=== PATIENT | female | born 1970 | race Caucasian/White ===

== ENCOUNTER 2018-02-08 12:24 | Emergency (ER) | payer MEDICAID, OTHER ==
[2014-01-31 23:06] VITALS: BP 100/68
[~2018-02-08] VITALS: Ht 172.7 cm; Wt 81.6 kg
--- NOTE | 2018-02-08 16:29 | PHYS DOC ---
Past Medical History Past Medical History: No Pertinent History Past Surgical History: Other Additional Past Surgical Histo: back surgery Alcohol Use: None Drug Use: Cocaine Adult General Chief Complaint Chief Complaint: BACK PAIN OR INJURY HPI HPI Patient is a 47 year old female who presents with chronic low back pain. Patient states she had a metal ying placed in her spine in 1997. She has had chronic back pain since then for which she takes Mobitz. She was recently incarcerated for 3 months. During her incarceration, she complained of back pain to the [facility] staff and did have a plain film x-ray completed. According to the patient, the x-ray read stated that one of the screws in her hardware had, loose. She presents to the ER today requesting to have this issue addressed. She continues to have chronic back pain but no acute or new symptoms. She takes Mobitz every day and does not need a refill. She is not requesting additional or stronger pain medications. No new injury. She has some numbness and radicular symptoms down the bilateral legs but these also are chronic in nature. No fever or chills. Review of Systems Review of Systems Constitutional: Denies fever or chills Eyes: Denies change in visual acuity HENT: Denies nasal congestion Respiratory: Denies cough or shortness of breath GI: Denies abdominal pain : Denies dysuria Musculoskeletal: chronic back pain Integument: Denies rash Neurologic: Denies headache All other systems were reviewed and found to be within normal limits, except as documented in this note. Allergies Allergies Allergies Coded Allergies Type Severity Reaction Last Updated Verified No Known Drug Allergies 08/17/13 No Physical Exam Physical Exam Constitutional: Well developed, well nourished, no acute distress, non-toxic appearance. [] HENT: Normocephalic, atraumatic, bilateral external ears normal, oropharynx moist, no oral exudates, nose normal. [] Eyes: PERRLA, EOMI, conjunctiva normal, no discharge. [] Neck: Normal range of motion, no tenderness, supple, no stridor. [] Cardiovascular:Heart rate regular rhythm, no murmur [] Lungs & Thorax: Bilateral breath sounds clear to auscultation [] Abdomen: Bowel sounds normal, soft, no tenderness, no masses, no pulsatile masses. [] Skin: Warm, dry, no erythema, no rash. [] Back: No tenderness, no CVA tenderness. [] Extremities: No tenderness, no cyanosis, no clubbing, ROM intact, no edema. [] Neurologic: Alert and oriented X 3, normal motor function, normal sensory function, no focal deficits noted. [] Psychologic: Affect normal, judgement normal, mood normal. [] Current Patient Data Vital Signs Vital Signs Date Time Temp Pulse Resp B/P (MAP) Pulse Ox O2 Delivery O2 Flow Rate FiO2 02/08/18 12:38 98.1 89 16 148/94 (112) 100 Room Air 98.1 EKG EKG [] Radiology/Procedures Radiology/Procedures [] Course & Med Decision Making Course & Med Decision Making Pertinent Labs and Imaging studies reviewed. (See chart for details) He waited briefly in the ER for chronic low back pain. She was under the understanding that we would be able to address her back pain and issue with the hardware in her back in the emergency department. I explained to the patient that we did not have the credentials or staff in the ER or at this hospital 2 address her fixative spinal devices. Patient was not requesting refills of medications. I did assist the patient by finding local physician groups who could potentially help with her problem. She was referred to follow up at the [facility] spine center. She was provided the phone number to call. Patient was satisfied with this plan of care. She did leave the ER with a normal steady gait and in no distress. Dragon Disclaimer Dragon Disclaimer This electronic medical record was generated, in whole or in part, using a voice recognition dictation system. Departure Departure Impression: Primary Impression: Chronic back pain Disposition: 01 HOME, SELF-CARE Condition: GOOD Patient Instructions: Back Pain, Adult Additional Instructions: You were seen in the emergency department today requesting to have the hardware in her back evaluated. This is not a specialty or service that is available at [facility]. It is recommended that he contact the [facility] spine center. The phone number is [phone]. They have locations both downtown [place] and also at the [facility] just down [address]. GUNNAR CLARKE DO Feb 08, 2018 16:29
== END 2018-02-08 13:17 | disposition home or self-care (01) ==
LOC: ER 12:24
DX: G89.29 Other chronic pain (principal); M54.5 Low back pain
CPT/HCPCS: 99281

== ENCOUNTER 2018-11-16 13:33 | Emergency (ER) | payer MEDICAID ==
[~2018-11-16] VITALS: Ht 172.7 cm; Wt 86.2 kg
[2018-11-16 13:49] VITALS: BP 100/62
[2018-11-16] MEDS ORDERED: NYSTATIN 100,000 UNIT/GM TOPICAL CREAM 15GM TUBE. TP STA (13:59)
[2018-11-16] MEDS ORDERED: SULF1TAB24 PO (14:27)
--- NOTE | 2018-11-16 14:28 | PHYS DOC ---
Past Medical History Past Medical History: No Pertinent History (GURJITDIOMEDES MARKS APRN) Past Surgical History: Hysterectomy, Other Additional Past Surgical Histo: back surgery (DIOMEDES PEREIRA APRN) Alcohol Use: None Drug Use: Cocaine (RANDALLDIOMEDES APRN) Adult General Chief Complaint Chief Complaint: SKIN RASH/ABSCESS HPI HPI Patient is a 47 year old female who presents to the ED today with multiple complaints. Patient is complaining of a rash underneath her breast bilaterally for 3 weeks. She is also complaining of a stye on the left upper eyelid, and another abscess on the tip of her nose. Denies any fever. Denies any history of diabetes. (RANDALLDIOMEDES [place]) Review of Systems Review of Systems Constitutional: Denies fever or chills [] Eyes: Denies change in visual acuity, redness, or eye pain [] HENT: Denies nasal congestion or sore throat [] Respiratory: Denies cough or shortness of breath [] Cardiovascular: No additional information not addressed in HPI [] GI: Denies abdominal pain, nausea, vomiting, bloody stools or diarrhea [] : Denies dysuria or hematuria [] Musculoskeletal: Denies back pain or joint pain [] Integument: Reports rash underneath her breast, stye in the left upper eyelid, abscess on the nose. Neurologic: Denies headache, focal weakness or sensory changes [] All other systems were reviewed and found to be within normal limits, except as documented in this note. (RANDALLDIOMEDES APRN) Current Medications Current Medications Current Medications Medications (Trade) Dose Ordered Sig/Chandra Start Time Stop Time Status Last Admin Dose Admin Diphtheria/ Tetanus/Acell Pertussis (Boostrix) 0.5 ml ONCE ONCE 11/16/18 14:30 11/16/18 14:31 DC 11/16/18 14:14 0.5 ML Erythromycin (Romycin) 0.25 inch 1X ONCE 11/16/18 14:30 11/16/18 14:31 DC 11/16/18 14:14 0.25 INCH Nystatin (Mycostatin) 1 cole 1X STAT 11/16/18 13:59 11/16/18 14:03 DC 11/16/18 14:14 1 COLE Trimethoprim/ Sulfamethoxazole (Bactrim Ds) 1 tab 1X ONCE 11/16/18 14:30 11/16/18 14:31 DC 11/16/18 14:14 1 TAB (MICAH CRANE DO) Allergies Allergies Allergies Coded Allergies Type Severity Reaction Last Updated Verified No Known Drug Allergies 08/17/13 No (MICAH CRANE DO) Physical Exam Physical Exam Constitutional: Well developed, well nourished, no acute distress, non-toxic appearance. [] HENT: Normocephalic, atraumatic, bilateral external ears normal, oropharynx moist, no oral exudates, nose normal. [] Eyes: PERRLA, EOMI, conjunctiva normal, no discharge. [] Neck: Normal range of motion, no tenderness, supple, no stridor. [] Cardiovascular:Heart rate regular rhythm, no murmur [] Lungs & Thorax: Bilateral breath sounds clear to auscultation [] Abdomen: Bowel sounds normal, soft, no tenderness, no masses, no pulsatile masses. [] Skin: Warm, dry, Left upper eyelid inner canthus with a stye that was drained by me. There is an abscess on the tip of the nose that appears to open up and drained. She has makeup on since had to do a full exam. There is moderate erythema does rash underneath her breasts bilaterally consistent with an infected yeast infection. Back: No tenderness, no CVA tenderness. [] Extremities: No tenderness, no cyanosis, no clubbing, ROM intact, no edema. [] Neurologic: Alert and oriented X 3, normal motor function, normal sensory func tion, no focal deficits noted. [] Psychologic: Affect normal, judgement normal, mood normal. [] (DIOMEDES PEREIRA APRN) Current Patient Data Vital Signs Vital Signs Date Time Temp Pulse Resp B/P (MAP) Pulse Ox O2 Delivery O2 Flow Rate FiO2 11/16/18 13:49 98.1 85 16 100/62 (75) 97 Room Air 98.1 (MICAH CRANE DO) EKG EKG [] (DIOMEDES PEREIRA APRN) Radiology/Procedures Radiology/Procedures [] (DIOMEDES PEREIRA APRN) Course & Med Decision Making Course & Med Decision Making Pertinent Labs and Imaging studies reviewed. (See chart for details) This is a 47-year-old female patient who presents to the ED today with an infected cutaneous candidiasis underneath her breast, she also has an abscess on the tip of the nose that has opened up and drained. She also has a stye on the left upper eyelid. The sty was drained by me in the ED. Tetanus was updated. She'll be discharged on Bactrim, nystatin cream, and erythromycin ointment which was provided in the ED. Follow-up with PCP in 1-2 weeks. (DIOMEDES PEREIRA APRN) Dragon Disclaimer Dragon Disclaimer This electronic medical record was generated, in whole or in part, using a voice recognition dictation system. (DIOMEDES PEREIRA APRN) Departure Departure Impression: Primary Impression: Sty, external Additional Impressions: Cutaneous candidiasis Nasal abscess Skin infection Disposition: HOME, SELF-CARE Condition: STABLE Referrals: NO PCP (PCP) Follow-up with the primary care doctor in one week Patient Instructions: Cutaneous Candidiasis, Sty Additional Instructions: You were evaluated in the emergency room and noted to have a stye on the left upper eyelid you were also noted to have an abscess on the tip of the nose as well as yeast infection underneath the breast. Use the prescribed medications as ordered. Avoid using makeup until the infection has cleared. Apply warm compresses to the left upper eyelid 3 times a day. Use nystatin under the breast three times a day. 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 I was available for consultation as needed during the patient's visit in the emergency department. I agree with the clinical impression, plan, and disposition. (MICAH CRANE DO) Problem Qualifiers Primary Impression: Sty, external Laterality: left Eyelid: upper Qualified Codes: H00.014 - Hordeolum externum left upper eyelid DIOMEDES PEREIRA APRN Nov 16, 2018 14:28 MICAH CRANE DO Nov 16, 2018 17:26
[2018-11-16] MEDS ORDERED: SMZ/TMP 800/160MG TABLET. PO ONE (14:30)
[2018-11-16] MEDS ORDERED: ERYTHROMYCIN 0.5% OPHTH OINTMENT 1GM TUBE. OS ONE (14:30)
[2018-11-16] MEDS ORDERED: DIPHTH,PERTUSS(ACELL),TET TOX 0.5 ML DISP.SYRIN. VAX IM ONE (14:30)
== END 2018-11-16 14:39 | disposition home or self-care (01) ==
LOC: ER 13:33
DX: H00.014 Hordeolum externum left upper eyelid (principal); J32.9 Chronic sinusitis, unspecified; B37.2 Candidiasis of skin and nail; Z90.710 Acquired absence of both cervix and uterus
CPT/HCPCS: 90471; 90715; 99284

== ENCOUNTER 2020-09-25 08:28 | Inpatient (IN) | payer MEDICAID ==
[~2020-09-25] VITALS: Ht 172.7 cm; Wt 108.6 kg
[2020-09-25] VITALS (11 sets, daily range): BP systolic 143–182; BP diastolic 76–99
[~2020-09-25 08:28] MED LIST: SULF1TAB24 PO
[2020-09-25] MEDS ORDERED: IPRATRPIUM/ALBUTEROL 0.5/2.5MG 3 ML NEBU. NEB ONE ×3 (09:00→16:15)
--- NOTE | 2020-09-25 09:20 | ED.ADGEN ---
Past Medical History Past Medical History: Depression Past Surgical History: Hysterectomy, Other Additional Past Surgical Histo: back surgery Smoking Status: Current Every Day Smoker Additional Information: STOPPED 2 DAYS AGO Alcohol Use: None Drug Use: Cocaine General Adult EDM: Chief Complaint: MULTIPLE COMPLAINTS HPI: HPI: Patient is a 49 year old female coming in for cough, shortness of breath, substernal pressure-like chest pain for 2 days. Patient states she quit smoking 2 days ago when symptoms were worsening. Denies any GI complaints. Denies any fevers. Has not had her Covid vaccines. Review of Systems: Review of Systems: All other systems within normal limits except for as noted in the HPI Current Medications: Current Medications Medications (Trade) Dose Ordered Sig/Chandra Start Time Stop Time Status Last Admin Dose Admin Albuterol/ Ipratropium (Duoneb) 3 ml 1X ONCE 09/25/20 09:00 09/25/20 09:03 DC 09/25/20 09:24 3 ML Furosemide (Lasix) 40 mg 1X ONCE 09/25/20 11:00 09/25/20 11:01 Info (CONTRAST GIVEN -- Rx MONITORING) 1 each PRN DAILY PRN 09/25/20 10:15 09/27/20 10:14 Iohexol (Omnipaque 350 Mg/ml) 100 ml 1X ONCE 09/25/20 10:15 09/25/20 10:16 DC Allergies: Allergies: Allergies Coded Allergies Type Severity Reaction Last Updated Verified No Known Drug Allergies 08/17/13 No Physical Exam: PE: Constitutional: Well developed, well nourished, no acute distress, non-toxic appearance. [] HENT: Normocephalic, atraumatic, bilateral external ears normal, nose normal. [] Eyes: PERRLA, conjunctiva normal, no discharge. [] Neck: No rigidity, supple, no stridor. [] Cardiovascular: Regular rate and rhythm, brisk cap refill [] Lungs & Thorax: Non labored symmetric respirations, no tachypnea or respiratory distress. Bilateral rhonchi and expiratory wheezes [] Abdomen: Soft, nondistended. Skin: Warm, dry, no erythema, no rash. [] Back: Unremarkable Extremities: No deformities, range of motion grossly intact, no lower extremity edema [] Neurologic: Alert and oriented X 3, no focal deficits noted. [] Psychologic: Affect normal, judgement normal, mood normal. [] Current Patient Data: Labs: Laboratory Tests Test 09/25/20 08:40 09/25/20 09:00 09/25/20 09:20 Urine Collection Type U cath Urine Color Yellow Urine Clarity Clear Urine pH 6.5 (<5.0-8.0) Urine Specific [place] 1.020 (1.000-1.030) Urine Protein Negative mg/dL (NEG-TRACE) Urine Glucose (UA) Negative mg/dL (NEG) Urine Ketones (Stick) Negative mg/dL (NEG) Urine Blood Small (NEG) Urine Nitrite Positive (NEG) Urine Bilirubin Negative (NEG) Urine Urobilinogen Dipstick 0.2 mg/dL (0.2 mg/dL) Urine Leukocyte Esterase Negative (NEG) Urine RBC 3-5 /HPF (0-2) Urine WBC 1-4 /HPF (0-4) Urine Bacteria Many /HPF (0-FEW) Sodium Level 141 mmol/L (136-145) Potassium Level 3.6 mmol/L (3.5-5.1) Chloride Level 106 mmol/L (98-107) Carbon Dioxide Level 25 mmol/L (21-32) Anion Gap 10 (6-14) Blood Urea Nitrogen 10 mg/dL (7-20) Creatinine 0.9 mg/dL (0.6-1.0) Estimated GFR (Cockcroft-Gault) 66.8 BUN/Creatinine Ratio 11 (6-20) Glucose Level 155 mg/dL (70-99) H Calcium Level 8.3 mg/dL (8.5-10.1) L Total Bilirubin 0.6 mg/dL (0.2-1.0) Aspartate Amino Transferase (AST) 19 U/L (15-37) Alanine Aminotransferase (ALT) 40 U/L (14-59) Alkaline Phosphatase 108 U/L (46-116) Troponin I Quantitative 0.159 ng/mL (0.000-0.055) CO-Fvu-B-Type Natriuretic Peptide 34747 pg/mL (0-124) H Total Protein 6.3 g/dL (6.4-8.2) L Albumin 3.1 g/dL (3.4-5.0) L Albumin/Globulin Ratio 1.0 (1.0-1.7) SARS-CoV-2 Antigen (Rapid) Negative (NEGATIVE) White Blood Count 7.4 x10^3/uL (4.0-11.0) Red Blood Count 4.03 x10^6/uL (3.50-5.40) Hemoglobin 12.2 g/dL (12.0-15.5) Hematocrit 36.9 % (36.0-47.0) Mean Corpuscular Volume 92 fL (79-100) Mean Corpuscular Hemoglobin 30 pg (25-35) Mean Corpuscular Hemoglobin Concent 33 g/dL (31-37) Red Cell Distribution Width 13.9 % (11.5-14.5) Platelet Count 246 x10^3/uL (140-400) Neutrophils (%) (Auto) 75 % (31-73) H Lymphocytes (%) (Auto) 19 % (24-48) L Monocytes (%) (Auto) 5 % (0-9) Eosinophils (%) (Auto) 1 % (0-3) Basophils (%) (Auto) 1 % (0-3) Neutrophils # (Auto) 5.5 x10^3/uL (1.8-7.7) Lymphocytes # (Auto) 1.4 x10^3/uL (1.0-4.8) Monocytes # (Auto) 0.4 x10^3/uL (0.0-1.1) Eosinophils # (Auto) 0.1 x10^3/uL (0.0-0.7) Basophils # (Auto) 0.0 x10^3/uL (0.0-0.2) Lactic Acid Level 1.8 mmol/L (0.4-2.0) Laboratory Tests 09/25/20 09:20 Laboratory Tests 09/25/20 08:40 Vital Signs: Vital Signs Date Time Temp Pulse Resp B/P (MAP) Pulse Ox O2 Delivery O2 Flow Rate FiO2 09/25/20 09:24 97 2.5 09/25/20 08:44 97.4 97 24 150/98 (115) Room Air 97.4 EKG: EKG: Sinus rhythm, heart rate 90 bpm, left bundle branch block, no ST elevation or depression. Heart Score: C/O Chest Pain: Yes HEART Score for Chest Pain: HEART Score for Chest Pain Response (Comments) Value History Moderately Suspicious 1 ECG Nonspecific Repolarizatio 1 Age >45 - < 65 1 Risk Factors 1 or 2 Risk Factors 1 Troponin >3 x Normal Limit 2 Total 6 Risk Factors: Risk Factors: DM, Current or recent (<one month) smoker, HTN, HLP, family history of CAD, obesity. Risk Scores: Score 0 - 3: 2.5% MACE over next 6 weeks - Discharge Home Score 4 - 6: 20.3% MACE over next 6 weeks - Admit for Clinical Observation Score 7 - 10: 72.7% MACE over next 6 weeks - Early Invasive Strategies Radiology/Procedures: Radiology/Procedures: [facility] [address] [place] [address] IMAGING REPORT Signed PATIENT: VANESSA CAR ACCOUNT: [id number] : 1970 LOCATION: ER AGE: 49 SEX: F EXAM STATUS: REG ER ORD. PHYSICIAN: FIOR HAY MD REASON: dyspnea, PE PROCEDURE: CT ANGIOGRAPHY CHEST CT angiography of the chest 09/25/2020 10:10 AM Indication: Dyspnea. PE. Technique: Multiple contiguous axial images were obtained through the chest after administration of intravenous iodinated contrast. Coronal, sagittal, and 3-D MIP reformations were created. Comparison: Chest radiograph, earlier today Findings: Exam is limited by significant motion artifact from breathing. No large pulmonary embolus is seen within the main or proximal lobar arteries. Exam is nondiagnostic for evaluation of distal segmental and subsegmental arteries. Heart is mildly enlarged. No pericardial effusion is identified. Mild mediastinal adenopathy appears to be present. No pneumothorax is identified. There are small bilateral pleural effusions. There is probable intralobular septal thickening likely interstitial edema throughout the bilateral lungs. Mild bibasilar atelectasis is seen. Impression minimal infiltrate in the apical right upper lobe. Limited evaluation of the upper abdomen demonstrates no acute abnormality. No acute osseous changes are seen. IMPRESSION: 1.Limited study without evidence of name large/central pulmonary embolism 2. Probable interstitial pulmonary edema with small bilateral pleural effusions 3. Cardiomegaly CT DOSING PQRS STATEMENT: One or more of the following individualized dose reduction techniques were utilized for this examination: 1. Automated exposure control 2. Adjustment of the mA and/or kV according to patient size 3. Use of iterative reconstruction technique Electronically signed by: Zeeshan Collins MD (09/25/2020 10:37 AM) [id number] DICTATED and SIGNED BY: ZEESHAN COLLINS MD DATE: 09/25/20 [id number] [] Course & Med Decision Making: Course & Med Decision Making Pertinent Labs and Imaging studies reviewed. (See chart for details) [] Cardiomegaly still likely underlying CHF not new. Initial rapid Covid negative. Patient admitted for new diagnosis of CHF and elevated troponin. Dragon Disclaimer: [employer] Disclaimer: This electronic medical record was generated, in whole or in part, using a voice recognition dictation system. Departure Departure Impression: Primary Impression: CHF (congestive heart failure) Additional Impressions: Person under investigation for COVID-19 Elevated troponin Disposition: ADMITTED INPATIENT Condition: STABLE Referrals: NO PCP (PCP) Problem Qualifiers FIOR HAY MD Sep 25, 2020 09:20
--- NOTE | 2020-09-25 09:22 | RAD ---
Single AP view of the chest. Comparison: None. Indication: Cough Findings: The heart is enlarged. There is no pneumothorax or effusion. Mild pulmonary vascular congestion. Impression: 1. Cardiomegaly and mild pulmonary vascular congestion. Electronically signed by: Martin Garcia MD (09/25/2020 9:20 AM) [id number]
[2020-09-25 09:46] LABS: BILIRUBIN,URINE NEGATIVE (NEG); CLARITY,URINE CLEAR; COLOR,URINE YELLOW; NITRITE,URINE POSITIVE (NEG); PH,URINE 6.5 (<5.0-8.0); PROTEIN,URINE NEGATIVE (NEG-TRACE); UROBILINOGEN,URINE 0.2 mg/dL (0.2 mg/dL)
[2020-09-25 09:50] LABS: BASO % 1 % (0-3); EOS # 0.1 x10^3/uL (0.0-0.7); EOS % 1 % (0-3); HEMATOCRIT 36.9 % (36.0-47.0); HEMOGLOBIN 12.2 g/dL (12.0-15.5); LYMPH # 1.4 x10^3/uL (1.0-4.8); LYMPH % 19 % (24-48); MEAN CORPUSCULAR HEMOGLOBIN 30 pg (25-35); MEAN CORPUSCULAR HGB CONC 33 g/dL (31-37); MEAN CORPUSCULAR VOLUME 92 fL (79-100); MONO # 0.4 x10^3/uL (0.0-1.1); MONO % 5 % (0-9); NEUT # 5.5 x10^3/uL (1.8-7.7); NEUT % 75 % (31-73); PLATELET COUNT 246 x10^3/uL (140-400); RED BLOOD COUNT 4.03 x10^6/uL (3.50-5.40); RED CELL DISTRIBUTION WIDTH 13.9 % (11.5-14.5); WHITE BLOOD COUNT 7.4 x10^3/uL (4.0-11.0)
[2020-09-25 09:51] LABS: CALCIUM 8.3 mg/dL (8.5-10.1); CREATININE 0.9 mg/dL (0.6-1.0); GFR 66.8; POTASSIUM 3.6 mmol/L (3.5-5.1)
[2020-09-25 09:55] LABS: BACTERIA,URINE MANY /HPF (0-FEW)
[2020-09-25 09:58] LABS: ALBUMIN 3.1 g/dL (3.4-5.0); TOTAL BILIRUBIN 0.6 mg/dL (0.2-1.0); TOTAL PROTEIN 6.3 g/dL (6.4-8.2)
[2020-09-25] MEDS ORDERED: IOHEXOL 350 MG/ML 100 ML VIAL. IV ONE (10:15)
[2020-09-25] MEDS ORDERED: CONTRAST GIVEN. MC PRN (10:15)
--- NOTE | 2020-09-25 10:40 | RAD ---
CT angiography of the chest 09/25/2020 10:10 AM Indication: Dyspnea. PE. Technique: Multiple contiguous axial images were obtained through the chest after administration of i ntravenous iodinated contrast. Coronal, sagittal, and 3-D MIP reformations were created. Comparison: Chest radiograph, earlier today Findings: Exam is limited by significant motion artifact from breathing. No large pulmonary embolus is seen wit hin the main or proximal lobar arteries. Exam is nondiagnostic for evaluation of distal segmental and subsegmental arteries. Heart is mildly enlarged. No pericardial effusion is identified. Mild mediast inal adenopathy appears to be present. No pneumothorax is identified. There are small bilateral pleur al effusions. There is probable intralobular septal thickening likely interstitial edema throughout t he bilateral lungs. Mild bibasilar atelectasis is seen. Impression minimal infiltrate in the apical r ight upper lobe. Limited evaluation of the upper abdomen demonstrates no acute abnormality. No acute osseous changes are seen. IMPRESSION: 1.Limited study without evidence of name large/central pulmonary embolism 2. Probable interstitial pulmonary edema with small bilateral pleural effusions 3. Cardiomegaly CT DOSING PQRS STATEMENT: One or more of the following individualized dose reduction techniques were utilized for this examinat ion: 1. Automated exposure control 2. Adjustment of the mA and/or kV according to patient size 3. Use of iterative reconstruction technique Electronically signed by: Zeeshan Moran MD (09/25/2020 10:37 AM) [id number]
[2020-09-25] MEDS ORDERED: ASPIRIN CHEWABLE 81 MG TABLET. PO ONE (10:45)
[2020-09-25] MEDS ORDERED: fentaNYL PF VIAL 100 MCG/2 ML VIAL IV PRN (10:45)
[2020-09-25] MEDS ORDERED: ACETAMINOPHEN 325 MG TABLET. PO PRN (10:45)
[2020-09-25] MEDS ORDERED: NITROGLYCERIN SUBLINGUAL 0.4 MG BOTTLE OF 25. SL PRN (10:45)
[2020-09-25] MEDS ORDERED: ONDANSETRON PF 4 MG/2 ML VIAL. IV PRN (10:45)
[2020-09-25] MEDS ORDERED: FUROSEMIDE 40 MG/4 ML VIAL. IVP ONE (11:00)
--- NOTE | 2020-09-25 12:35 | PDOC2 ---
SOLO THORNE LIQUEFACTION AND REGASIFICATION HELPER 09/25/20 1235: CARDIAC CONSULT DATE OF CONSULT Date of Consult DATE: 09/25/20 TIME: 12:26 REASON FOR CONSULT Reason for Consult: CHF, chest pain REFERRING PHYSICIAN Referring Physician: Issac SOURCE Source: Chart review, Patient HISTORY OF PRESENT ILLNESS HISTORY OF PRESENT ILLNESS This is a pleasant 49 yo female admitted for complains of chest pain and SOA. Reports that her SOA got worse this morning and had mid chest tightness. No nausea or vomiting. No recent falls or injury. Reports that in the last month she has been having ESPITIA and exertional chest tightness to a point that she has to stop doing what she is doing before progressing. Denies any past CAD, VTE, or arrhythmia.Reports no palpitations. No recent infection, no fever or chills. Denies any jaw tightness or arm heaviness. No leg swelling. Positive for orthopnea and PND. She has been wheezing. She smokes tobacco but denies any recreational drug use. She has not had any cardiac workup in the past. She only takes cymbalta. PAST MEDICAL HISTORY Cardiovascular: No pertinent hx Pulmonary: Other (No pertinent history) CENTRAL NERVOUS SYSTEM: Other (No pertinent history) GI: No pertinent hx Heme/Onc: No pertinent hx Hepatobiliary: No pertinent hx Psych: Anxiety, Depression Musculoskeletal: low back pain, Osteoarthritis, Other (chornic back pain) Rheumatologic: No pertinent hx Infectious disease: No pertinent hx ENT: No pertinent hx PAST SURGICAL HISTORY Past Surgical History: Hysterectomy, Other (lumbar laminectomy) FAMILY HISTORY Family History: Coronary Artery Disease (mother had CABG in her 60s), Diabetes (mother) SOCIAL HISTORY Smoke: 1 pack per day ALCOHOL: none Drugs: None Lives: with Family CURRENT MEDICATIONS CURRENT MEDICATIONS Current Medications Medications (Trade) Dose Ordered Sig/Chandra Route PRN Reason Start Time Stop Time Status Last Admin Dose Admin Albuterol/ Ipratropium (Duoneb) 3 ml 1X ONCE NEB 09/25/20 09:00 09/25/20 09:03 DC 09/25/20 09:24 Furosemide (Lasix) 40 mg 1X ONCE IVP 09/25/20 11:00 09/25/20 11:01 DC 09/25/20 10:53 Aspirin (Aspirin Chewable) 324 mg 1X ONCE PO 09/25/20 10:45 09/25/20 10:46 DC 09/25/20 10:52 ALLERGIES ALLERGIES: Coded Allergies: No Known Drug Allergies (Unverified , 08/17/13) ROS Review of System 14 point ROS evaluated with pertinent positives noted per HPI PHYSICAL EXAM General: Alert, Oriented X3, Cooperative, No acute distress HEENT: Atraumatic, Mucous membr. moist/pink Lungs: Normal air movement, Other (upper wheeze) Abdomen: Soft, No tenderness Extremities: No cyanosis, No edema Skin: No breakdown, No significant lesion Neuro: Normal speech, Sensation intact Psych/Mental Status: Mental status NL, Mood NL MUSCULOSKELETAL: Osteoarthritic changes both hands VITALS/I&O VITALS/I&O: Vital Signs Date Time Temp Pulse Resp B/P (MAP) Pulse Ox O2 Delivery O2 Flow Rate FiO2 09/25/20 10:55 95 142/90 (107) 95 Nasal Cannula 2.0 09/25/20 08:44 97.4 24 97.4 LABS Lab: Laboratory Tests Test 09/25/20 08:40 09/25/20 09:00 09/25/20 09:20 Urine Collection Type U cath Urine Color Yellow Urine Clarity Clear Urine pH 6.5 (<5.0-8.0) Urine Specific [place] 1.020 (1.000-1.030) Urine Protein Negative mg/dL (NEG-TRACE) Urine Glucose (UA) Negative mg/dL (NEG) Urine Ketones (Stick) Negative mg/dL (NEG) Urine Blood Small (NEG) Urine Nitrite Positive (NEG) Urine Bilirubin Negative (NEG) Urine Urobilinogen Dipstick 0.2 mg/dL (0.2 mg/dL) Urine Leukocyte Esterase Negative (NEG) Urine RBC 3-5 /HPF (0-2) Urine WBC 1-4 /HPF (0-4) Urine Bacteria Many /HPF (0-FEW) Sodium Level 141 mmol/L (136-145) Potassium Level 3.6 mmol/L (3.5-5.1) Chloride Level 106 mmol/L (98-107) Carbon Dioxide Level 25 mmol/L (21-32) Anion Gap 10 (6-14) Blood Urea Nitrogen 10 mg/dL (7-20) Creatinine 0.9 mg/dL (0.6-1.0) Estimated GFR (Cockcroft-Gault) 66.8 BUN/Creatinine Ratio 11 (6-20) Glucose Level 155 mg/dL (70-99) H Calcium Level 8.3 mg/dL (8.5-10.1) L Total Bilirubin 0.6 mg/dL (0.2-1.0) Aspartate Amino Transferase (AST) 19 U/L (15-37) Alanine Aminotransferase (ALT) 40 U/L (14-59) Alkaline Phosphatase 108 U/L (46-116) Troponin I Quantitative 0.159 ng/mL (0.000-0.055) QK-Qln-N-Type Natriuretic Peptide 92455 pg/mL (0-124) H Total Protein 6.3 g/dL (6.4-8.2) L Albumin 3.1 g/dL (3.4-5.0) L Albumin/Globulin Ratio 1.0 (1.0-1.7) SARS-CoV-2 Antigen (Rapid) Negative (NEGATIVE) White Blood Count 7.4 x10^3/uL (4.0-11.0) Red Blood Count 4.03 x10^6/uL (3.50-5.40) Hemoglobin 12.2 g/dL (12.0-15.5) Hematocrit 36.9 % (36.0-47.0) Mean Corpuscular Volume 92 fL (79-100) Mean Corpuscular Hemoglobin 30 pg (25-35) Mean Corpuscular Hemoglobin Concent 33 g/dL (31-37) Red Cell Distribution Width 13.9 % (11.5-14.5) Platelet Count 246 x10^3/uL (140-400) Neutrophils (%) (Auto) 75 % (31-73) H Lymphocytes (%) (Auto) 19 % (24-48) L Monocytes (%) (Auto) 5 % (0-9) Eosinophils (%) (Auto) 1 % (0-3) Basophils (%) (Auto) 1 % (0-3) Neutrophils # (Auto) 5.5 x10^3/uL (1.8-7.7) Lymphocytes # (Auto) 1.4 x10^3/uL (1.0-4.8) Monocytes # (Auto) 0.4 x10^3/uL (0.0-1.1) Eosinophils # (Auto) 0.1 x10^3/uL (0.0-0.7) Basophils # (Auto) 0.0 x10^3/uL (0.0-0.2) Lactic Acid Level 1.8 mmol/L (0.4-2.0) Laboratory Tests 09/25/20 09:20 Laboratory Tests 09/25/20 08:40 ASSESSMENT/PLAN ASSESSMENT/PLAN 1. NSTEMI/ACS: EKG with noted LBBB no priors for comparison 2. Acute CHF with possible diastolic dysfunction 3. HTN: labile 4. Suspecting COPD with Tobaccoism 5. Obesity 6. UTI 7. Metabolic syndrome Recommendations 1. ASA. NTG. hydralazine IV PRN 2. LHC with possible PCI, risks and benefits discussed and agreeable to proceed 3. Smoking cessation 4. TTE, TSH, FLP, A1C 5. Lasxi given in ED. X1 solumedrol ALEXSANDRA BURGESS MD 09/25/20 1807: CARDIAC CONSULT ASSESSMENT/PLAN ASSESSMENT/PLAN The patient was seen and interviewed as well as examined at the bedside. The chart was reviewed. The case was discussed. Agree with the plan of care. SOLO THORNE APRN Sep 25, 2020 12:35 ALEXSANDRA BURGESS MD Sep 25, 2020 18:07
--- NOTE | 2020-09-25 13:01 | HP ---
ADMIT DATE: 09/25/2020 CHIEF COMPLAINT: Cough, shortness of breath. HISTORY OF PRESENT ILLNESS: The patient is a pleasant 49-year-old female who continues to smoke, although she states she quit smoking a couple days ago. She states she has only smoked a pack a day since she was 16, but she seems to have severe wheezing, respiratory failure. I suspect she has COPD, perhaps undiagnosed. While in the ER, we also noticed that she has cardiomegaly on chest x-ray and her BNP level is also high at 15,452. Troponin level 0.159. Discussed the case with ER physician. We are going to admit the patient and consult Pulmonary and Cardiology. PAST MEDICAL HISTORY: Probable undiagnosed COPD, tobacco abuse, depression, hypertension, hysterectomy, back surgery. ALLERGIES: None. FAMILY HISTORY: Diabetes. SOCIAL HISTORY: She smokes daily since she was 16. Does not drink or take drugs. She is trying to quit smoking, states she has not had any for a couple days. MEDICATIONS: Reviewed, please refer to the MRAD. REVIEW OF SYSTEMS: GENERAL: No history of weight change, weakness or fevers. SKIN: No bruising, hair changes or rashes. EYES: No blurred, double or loss of vision. NOSE AND THROAT: No history of nosebleeds, hoarseness or sore throat. HEART: No history of palpitations, chest pain or shortness of breath on exertion. PULMONARY: She complains of shortness of breath and cough. GASTROINTESTINAL: Denies changes in appetite, nausea, vomiting, diarrhea or constipation. GENITOURINARY: No history of frequency, urgency, hesitancy or nocturia. NEUROLOGIC: Denies history of numbness, tingling, tremor or weakness. PSYCHIATRIC: No history of panic, anxiety or depression. ENDOCRINE: No history of heat or cold intolerance, polyuria or polydipsia. EXTREMITIES: Denies muscle weakness, joint pain, pain on walking or stiffness. PHYSICAL EXAMINATION: VITALS: Within normal limits and are stable. GENERAL: No apparent distress. Alert and oriented. HEENT: Normal cephalic atraumatic, external auditory canals are patent EYES: Extraocular muscles are intact, pupils are equally round and reactive to light and accommodation MUSCULOSKELETAL: Well developed, well nourished, good range of motion ENDOCRINE: No thyromegaly was palpated LYMPHATICS: No cervical chain or axillary nodes were noted HEMATOPOIETIC: No bruising NECK: Supple, no JVD, no thyromegaly was noted. PULMONARY: She has diffuse wheezing almost audible at the bedside, even. HEART: RRR, S1, S2 present. Peripheral pulses intact, no obvious murmurs were noted. ABDOMEN: Soft, nontender. Positive bowel sounds no organomegaly, normal bowel sounds. EXTREMITIES: Without any cyanosis, clubbing, or edema. Pedal pulses intact, Homans sign is negative. NEUROLOGIC: Normal speech, normal tone. A and O x 3, moves all extremities, no obvious focal deficits. PSYCHIATRIC: Normal affect, normal mood. Stable. SKIN: No ulcerations or rashes, good skin turgor, no jaundice. VASCULAR: Good capillary refill, neurovascular bundle appears to be intact. LABORATORY DATA: Electrolytes are normal. Troponin is high at 0.159. BNP is high at 15,452. Urinalysis is negative. COVID testing is negative. Chest x-ray, cardiomegaly and pulmonary vascular congestion. ASSESSMENT AND PLAN: Multifactorial respiratory failure with acute on chronic systolic and diastolic heart failure and chronic obstructive pulmonary disease. The patient has been admitted. We will consult Pulmonary and Cardiology. DuoNebs, O2 per nasal cannula, empiric IV antibiotics, IV steroids. Serial enzymes, serial EKGs. P.r.n. fentanyl, p.r.n. Zofran. Trend labs. Cardiac monitoring. IV Lasix. Long-term prognosis guarded. CC time [address]: Julieth TID: [id number]
[2020-09-25 13:30] LABS: CHOLESTEROL/HDL RATIO 3.8
[2020-09-25] MEDS ORDERED: methylPREDNISolone SOD SUCC PF 125 MG/2 ML VIAL. IV ONE (13:30)
[2020-09-25] MEDS ORDERED: NITROGLYCERIN OINT 1 GM PACKET. TP ONE ×2 (13:30)
--- NOTE | 2020-09-25 14:06 | EKG ---
[facility] [address] [place] [address] Test Date: 2020-09-25 Test Time: 08:35:50 Pat Name: VANESSA CAR Department: Room: 254 1 Gender: F Movie Shot Cameraman: : 1970 Requested By: FIOR HAY Order Number: [id number] Reading MD: Rodger Handley MD Measurements Intervals [place] Rate: 99 P: 49 IL: 180 QRS: 30 QRSD: 146 T: 156 QT: 396 QTc: 514 Interpretive Statements SINUS RHYTHM LBBB Electronically Signed On 09-25-2020 18:05:55 CDT by Rodger Handley MD
[2020-09-25] MEDS ORDERED: DULO60CA6 PO (15:04)
[2020-09-25] MEDS ORDERED: IODIXANOL 320 MG/ML 100 ML VIAL. ONE (15:28)
[2020-09-25] MEDS ORDERED: LIDOCAINE 1% PF 2 ML VIAL. ONE (15:28)
[2020-09-25] MEDS ORDERED: MIDAZOLAM HCL/PF 2 MG/2 ML VIAL. ONE (15:31)
[2020-09-25] MEDS ORDERED: HEPARIN for IV BOLUS 10,000 UNIT/10 ML VIAL. ONE (15:31)
[2020-09-25] MEDS ORDERED: VERAPAMIL 5 MG/2 ML VIAL. ONE (15:31)
[2020-09-25] MEDS ORDERED: fentaNYL PF VIAL 100 MCG/2 ML VIAL ONE (15:31)
[2020-09-25] MEDS ORDERED: NITROGLYCERIN 200 MCG/2 ML SYRINGE FOR CATH/VASC LAB. ONE (15:31)
--- NOTE | 2020-09-25 15:45 | NUR ---
Pt to roofing laborer for procedure. Pt very tachypenic and wheezing, RT paged for duoneb treatment. JOSE RN
[2020-09-25] MEDS ORDERED: FUROSEMIDE 100 MG/10 ML VIAL. ONE (16:08)
[2020-09-25] MEDS ORDERED: HEPARIN for IV BOLUS 10,000 UNIT/10 ML VIAL. IART ONE (16:15)
[2020-09-25] MEDS ORDERED: NITROGLYCERIN 200 MCG/2 ML SYRINGE FOR CATH/VASC LAB. IART ONE (16:15)
[2020-09-25] MEDS ORDERED: VERAPAMIL 5 MG/2 ML VIAL. IART ONE (16:15)
[2020-09-25] MEDS ORDERED: FUROSEMIDE 100 MG/10 ML VIAL. IVP ONE (16:15)
[2020-09-25] MEDS ORDERED: fentaNYL PF VIAL 100 MCG/2 ML VIAL IV ONE (16:15)
[2020-09-25] MEDS ORDERED: IODIXANOL 320 MG/ML 100 ML VIAL. IART ONE (16:15)
[2020-09-25] MEDS ORDERED: LIDOCAINE 1% PF 2 ML VIAL. INJ ONE (16:15)
[2020-09-25] MEDS ORDERED: MIDAZOLAM HCL/PF 2 MG/2 ML VIAL. IV ONE (16:15)
--- NOTE | 2020-09-25 17:55 | CARD ---
MR#: [id number] Date of Study: 09/25/2020 Ordering Physician: SOLO THORNE, Referring Physician: SOLO THORNE, Tech: RT [place](R) APPROVED REPORT Technologist: Triny Tim RT(R) Nurse: Geri Ventura RN Procedure(s) performed: MODERATE SEDATION TIME: 32 MINUTES FLUORO TIME: 7.5 MIN DOSE: 103.3 GYCM2 CONTRAST: 100CC VISI LHC, Coronary angiography [facility] Clinical Frailty Scale [facility] Clinical Frailty Scale: Moderately Frail Heart Failure Heart Failure: Yes If Yes, Newly Diagnosed: Yes If Yes, HF Type: Diastolic If Yes, NYHA Class: Class III CASE TECHNIQUE The patient was brought urgently into the cardiac catheterization lab. A timeout was performed confir matthieu the patient's name, date of , procedure, and site of procedure. All necessary parties were wearing the appropriate personal protective equipment and radiation monitoring devices. After explain ing the risks and benefits of the procedure, informed consent was obtained. IV conscious sedation was used throughout procedure with appropriate monitoring and was performed in the presence of a shahriar armendariz nurse who was an independent trained observer other than the physician performing the procedure. During this case, Fluoroscopy and low osmolar contrast were used for imaging. Specimen(s) Removed: N/ A Estimated Blood loss: 15 cc's. PROCEDURE NARRATIVE Clinical information: 49-year-old woman who presents to the hospital in the setting of unstable angina with recurrent chest pain within 1 week in the setting of prior history of hypertension, tobacco abuse. Informed consent: Written informed consent was obtained from the patient after adequate discussion of the risks and annette efits of the procedure. Procedure details: ACCESS: The right wrist was prepped and draped in usual sterile fashion. Under 1% lidocaine local anesthesia a 6 [place] Terumo sheath was placed in the right radial artery via the Seldinger technique. DIAGNOSTIC ANGIOGRAPHY: Right and left coronary arteries were engaged with a 6 [place] TIG catheter and AL 0.75 guide catheter . Diagnostic angiography in multiple views were obtained. LVEDP was measured with a TIG catheter and pullback was performed. All catheters were exchanged over J-tip guidewire. 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 The vessel has no significant disease LAD is a moderate caliber vessel with mild luminal irregularities of up to 30%. Left circumflex is a moderate caliber vessel with mild luminal irregularities of up to 30%. RCA is a very large caliber dominant vessel with normal angiographic appearance RPDA is a large-caliber vessel with normal angiographic appearance and is the dominant vessel to the apex. CLOSURE: At case completion the right radial sheath was removed and a Terumo radial band was applied with 11 m L of air. Hemostasis was achieved. COMPLICATIONS: No acute complications noted Conclusion 1. Acute on chronic diastolic heart failure, LVEDP 40 mmHg 2. Mild nonobstructive coronary artery disease Recommendations Aggressive Medical Therapy Signed by : Rodger Handley, Electronically Approved : 09/25/2020 17:55:22
[2020-09-25 18:34] LABS: BARBITURATES NEG (NEG); BENZODIAZEPINES NEG (NEG); CANNABINOIDS NEG (NEG); COCAINE POS (NEG); METHADONE NEG (NEG); OPIATES NEG (NEG); PHENCYCLIDINE NEG (NEG)
[2020-09-25 18:35] LABS: AMPHETAMINE/METHAMPHETAMINE NEG (NEG)
[2020-09-26 00:08] LABS: HEMOGLOBIN A1C 5.7 % (4.8-5.6)
[2020-09-26 03:25] VITALS: BP 169/97
[2020-09-26 04:13] LABS: BASO % 0 % (0-3); EOS % 0 % (0-3); HEMATOCRIT 37.6 % (36.0-47.0); HEMOGLOBIN 12.5 g/dL (12.0-15.5); LYMPH # 0.6 x10^3/uL (1.0-4.8); LYMPH % 6 % (24-48); MEAN CORPUSCULAR HEMOGLOBIN 31 pg (25-35); MEAN CORPUSCULAR HGB CONC 33 g/dL (31-37); MEAN CORPUSCULAR VOLUME 92 fL (79-100); MONO # 0.4 x10^3/uL (0.0-1.1); MONO % 4 % (0-9); NEUT % 90 % (31-73); PLATELET COUNT 279 x10^3/uL (140-400); RED BLOOD COUNT 4.07 x10^6/uL (3.50-5.40); RED CELL DISTRIBUTION WIDTH 14.3 % (11.5-14.5)
[2020-09-26 04:42] LABS: ALBUMIN/GLOBULIN RATIO 0.9 (1.0-1.7); CALCIUM 8.8 mg/dL (8.5-10.1); GFR 59.2; POTASSIUM 3.5 mmol/L (3.5-5.1); TOTAL BILIRUBIN 0.5 mg/dL (0.2-1.0); TOTAL PROTEIN 6.4 g/dL (6.4-8.2)
[2020-09-26 04:43] LABS: % BANDS 1 % (0-9); % BASOS 1 % (0-3); % LYMPHS 7 % (24-48); % MONOS 4 % (0-10); % SEGS 87 % (35-66); PLT ESTIMATE ADEQUATE (ADEQUATE)
[2020-09-26 07:00] VITALS: BP 180/99
[2020-09-26] MEDS ORDERED: POTASSIUM CHLORIDE 20 MEQ TABLET.ER. PO SCH (08:00)
[2020-09-26] MEDS ORDERED: FUROSEMIDE 40 MG/4 ML VIAL. IVP SCH (09:00)
--- NOTE | 2020-09-26 09:08 | PDOC ---
PROGRESS NOTES Date of Service: DATE: 09/26/20 TIME: 09:07 Chief Complaint Chief Complaint ASSESSMENT AND PLAN: Multifactorial respiratory failure, hypoxic acute on chronic systolic and diastolic heart failure // interstitial pulmonary edema with small bilateral pleural effusions chronic obstructive pulmonary disease. with acute exacerbation without evidence of name large/central pulmonary embolism Acute on chronic diastolic heart failure, LVEDP 40 mmHg Mild nonobstructive coronary artery disease UTI plan admitted. consult Pulmonary and Cardiology. DuoNebs, O2 per nasal cannula, empiric IV antibiotics, IV steroids. Serial enzymes, serial EKGs. P.r.n. fentanyl, p.r.n. Zofran. Trend labs. Cardiac monitoring cvc bed. IV Lasix. IV ANTIBIOTICS Long-term prognosis guarded. CC time 33 minutes. History of Present Illness History of Present Illness CHIEF COMPLAINT: Cough, shortness of breath. HISTORY OF PRESENT ILLNESS: 49-year-old female who continues to smoke, Shestates she has only smoked a pack a day since she was 16, but she seems to have severe wheezing, respiratory failure. I suspect she has COPD, perhaps While in the ER, we also noticed that she has cardiomegaly on chest x-ray and her BNP level is also high at 15,452. Troponin level 0.159. plan admit the patient and consult Pulmonary and Cardiology. PAST MEDICAL HISTORY: Probable undiagnosed COPD, tobacco abuse, depression, hypertension, hysterectomy, back surgery. ALLERGIES: None. FAMILY HISTORY: Diabetes. SOCIAL HISTORY: She smokes daily since she was 16. Does not drink or take drugs. She is trying to quit smoking, states she has not had any for a couple days. MEDICATIONS: Reviewed, please refer to the MRAD. REVIEW OF SYSTEMS: GENERAL: No history of weight change, weakness or fevers. SKIN: No bruising, hair changes or rashes. EYES: No blurred, double or loss of vision. NOSE AND THROAT: No history of nosebleeds, hoarseness or sore throat. HEART: No history of palpitations, chest pain or shortness of breath on exertion. PULMONARY: She complains of shortness of breath and cough. GASTROINTESTINAL: Denies changes in appetite, nausea, vomiting, diarrhea or constipation. GENITOURINARY: No history of frequency, urgency, hesitancy or nocturia. NEUROLOGIC: Denies history of numbness, tingling, tremor or weakness. PSYCHIATRIC: No history of panic, anxiety or depression. ENDOCRINE: No history of heat or cold intolerance, polyuria or polydipsia. EXTREMITIES: Denies muscle weakness, joint pain, pain on walking or stiffness. Vitals Vitals Vital Signs Date Time Temp Pulse Resp B/P (MAP) Pulse Ox O2 Delivery O2 Flow Rate FiO2 09/26/20 07:30 Nasal Cannula 4.0 09/26/20 07:00 97.9 103 22 180/99 (126) 96 97.9 Physical Exam General: Alert, Oriented X3, Cooperative, No acute distress Heart: Regular rate Lungs: Wheezing Abdomen: Normal bowel sounds, Soft, No tenderness Extremities: No cyanosis, No edema Skin: No breakdown, No significant lesion Labs LABS DESC: STR CATH ORDERED: URINE CULTURE - Procedure Result URINE CULTURE Preliminary Preliminary GREATER THAN 100,000 CFU/ML GRAM NEGATIVE RODS on 09/26/20 at 0831 FINAL ID= [ESCHERICHIA COLI] Testing Performed by: [address] [id number] For Inquires, the Physician may contact the Microbiology department at [phone] ESCHERICHIA COLI Unless otherwise specified, Testing Performed by: [address] [address] For Inquires, the Physician may contact the Microbiology department at [phone] CT angiography of the chest 09/25/2020 10:10 AM Indication: Dyspnea. PE. Technique: Multiple contiguous axial images were obtained through the chest after administration of intravenous iodinated contrast. Coronal, sagittal, and 3-D MIP reformations were created. Comparison: Chest radiograph, earlier today Findings: Exam is limited by significant motion artifact from breathing. No large pulmonary embolus is seen within the main or proximal lobar arteries. Exam is nondiagnostic for evaluation of distal segmental and subsegmental arteries. Heart is mildly enlarged. No pericardial effusion is identified. Mild mediastinal adenopathy appears to be present. No pneumothorax is identified. There are small bilateral pleural effusions. There is probable intralobular septal thickening likely interstitial edema throughout the bilateral lungs. Mild bibasilar atelectasis is seen. Impression minimal infiltrate in the apical right upper lobe. Limited evaluation of the upper abdomen demonstrates no acute abnormality. No acute osseous changes are seen. IMPRESSION: 1.Limited study without evidence of name large/central pulmonary embolism 2. Probable interstitial pulmonary edema with small bilateral pleural effusions 3. Cardiomegaly CT DOSING PQRS STATEMENT: One or more of the following individualized dose reduction techniques were utilized for this examination: 1. Automated exposure control 2. Adjustment of the mA and/or kV according to patient size 3. Use of iterative reconstruction technique Electronically signed by: Zeeshan Collins MD (09/25/2020 10:37 AM) [id number] DICTATED and SIGNED BY: ZEESHAN COLLINS MD DATE: 09/25/20 [id number] Laboratory Tests Test 09/25/20 09:20 09/25/20 13:20 09/25/20 16:30 09/26/20 04:00 White Blood Count 7.4 x10^3/uL (4.0-11.0) 10.0 x10^3/uL (4.0-11.0) Red Blood Count 4.03 x10^6/uL (3.50-5.40) 4.07 x10^6/uL (3.50-5.40) Hemoglobin 12.2 g/dL (12.0-15.5) 12.5 g/dL (12.0-15.5) Hematocrit 36.9 % (36.0-47.0) 37.6 % (36.0-47.0) Mean Corpuscular Volume 92 fL (79-100) 92 fL (79-100) Mean Corpuscular Hemoglobin 30 pg (25-35) 31 pg (25-35) Mean Corpuscular Hemoglobin Concent 33 g/dL (31-37) 33 g/dL (31-37) Red Cell Distribution Width 13.9 % (11.5-14.5) 14.3 % (11.5-14.5) Platelet Count 246 x10^3/uL (140-400) 279 x10^3/uL (140-400) Neutrophils (%) (Auto) 75 % (31-73) 90 % (31-73) Lymphocytes (%) (Auto) 19 % (24-48) 6 % (24-48) Monocytes (%) (Auto) 5 % (0-9) 4 % (0-9) Eosinophils (%) (Auto) 1 % (0-3) 0 % (0-3) Basophils (%) (Auto) 1 % (0-3) 0 % (0-3) Neutrophils # (Auto) 5.5 x10^3/uL (1.8-7.7) 9.0 x10^3/uL (1.8-7.7) Lymphocytes # (Auto) 1.4 x10^3/uL (1.0-4.8) 0.6 x10^3/uL (1.0-4.8) Monocytes # (Auto) 0.4 x10^3/uL (0.0-1.1) 0.4 x10^3/uL (0.0-1.1) Eosinophils # (Auto) 0.1 x10^3/uL (0.0-0.7) 0.0 x10^3/uL (0.0-0.7) Basophils # (Auto) 0.0 x10^3/uL (0.0-0.2) 0.0 x10^3/uL (0.0-0.2) Hemoglobin A1c 5.7 % (4.8-5.6) Lactic Acid Level 1.8 mmol/L (0.4-2.0) Troponin I Quantitative 0.151 ng/mL (0.000-0.055) Urine Opiates Screen Neg (NEG) Urine Methadone Screen Neg (NEG) Urine Barbiturates Neg (NEG) Urine Phencyclidine Screen Neg (NEG) Urine Amphetamine/Methamphetamine Neg (NEG) Urine Benzodiazepines Screen Neg (NEG) Urine Cocaine Screen Pos (NEG) Urine Cannabinoids Screen Neg (NEG) Urine Ethyl Alcohol Neg (NEG) Segmented Neutrophils % 87 % (35-66) Band Neutrophils % 1 % (0-9) Lymphocytes % 7 % (24-48) Monocytes % 4 % (0-10) Basophils % 1 % (0-3) Platelet Estimate Adequate (ADEQUATE) Sodium Level 139 mmol/L (136-145) Potassium Level 3.5 mmol/L (3.5-5.1) Chloride Level 102 mmol/L (98-107) Carbon Dioxide Level 30 mmol/L (21-32) Anion Gap 7 (6-14) Blood Urea Nitrogen 14 mg/dL (7-20) Creatinine 1.0 mg/dL (0.6-1.0) Estimated GFR (Cockcroft-Gault) 59.2 BUN/Creatinine Ratio 14 (6-20) Glucose Level 156 mg/dL (70-99) Calcium Level 8.8 mg/dL (8.5-10.1) Total Bilirubin 0.5 mg/dL (0.2-1.0) Aspartate Amino Transf (AST/SGOT) 13 U/L (15-37) Alanine Aminotransferase (ALT/SGPT) 31 U/L (14-59) Alkaline Phosphatase 104 U/L (46-116) Total Protein 6.4 g/dL (6.4-8.2) Albumin 3.0 g/dL (3.4-5.0) Albumin/Globulin Ratio 0.9 (1.0-1.7) Assessment and Plan Assessmemt and Plan Problems Medical Problems: (1) CHF (congestive heart failure) Status: Acute (2) Elevated troponin Status: Acute (3) Person under investigation for COVID-19 Status: Acute Comment Review of Relevant I have reviewed the following items rebecca (where applicable) has been applied. Labs Laboratory Tests Test 09/25/20 08:40 09/25/20 09:00 09/25/20 09:20 09/25/20 13:20 Urine Collection Type U cath Urine Color Yellow Urine Clarity Clear Urine pH 6.5 (<5.0-8.0) Urine Specific [place] 1.020 (1.000-1.030) Urine Protein Negative mg/dL (NEG-TRACE) Urine Glucose (UA) Negative mg/dL (NEG) Urine Ketones (Stick) Negative mg/dL (NEG) Urine Blood Small (NEG) Urine Nitrite Positive (NEG) Urine Bilirubin Negative (NEG) Urine Urobilinogen Dipstick 0.2 mg/dL (0.2 mg/dL) Urine Leukocyte Esterase Negative (NEG) Urine RBC 3-5 /HPF (0-2) Urine WBC 1-4 /HPF (0-4) Urine Bacteria Many /HPF (0-FEW) Sodium Level 141 mmol/L (136-145) Potassium Level 3.6 mmol/L (3.5-5.1) Chloride Level 106 mmol/L (98-107) Carbon Dioxide Level 25 mmol/L (21-32) Anion Gap 10 (6-14) Blood Urea Nitrogen 10 mg/dL (7-20) Creatinine 0.9 mg/dL (0.6-1.0) Estimated GFR (Cockcroft-Gault) 66.8 BUN/Creatinine Ratio 11 (6-20) Glucose Level 155 mg/dL (70-99) Calcium Level 8.3 mg/dL (8.5-10.1) Total Bilirubin 0.6 mg/dL (0.2-1.0) Aspartate Amino Transf (AST/SGOT) 19 U/L (15-37) Alanine Aminotransferase (ALT/SGPT) 40 U/L (14-59) Alkaline Phosphatase 108 U/L (46-116) Troponin I Quantitative 0.159 ng/mL (0.000-0.055) 0.151 ng/mL (0.000-0.055) KU-Kdf-O-Type Natriuretic Peptide 91962 pg/mL (0-124) Total Protein 6.3 g/dL (6.4-8.2) Albumin 3.1 g/dL (3.4-5.0) Albumin/Globulin Ratio 1.0 (1.0-1.7) Triglycerides Level 124 mg/dL (0-150) Cholesterol Level 152 mg/dL (0-200) LDL Cholesterol, Calculated 87 mg/dL (0-100) VLDL Cholesterol, Calculated 25 mg/dL (0-40) Non-HDL Cholesterol Calculated 112 mg/dL (0-129) HDL Cholesterol 40 mg/dL (40-60) Cholesterol/HDL Ratio 3.8 Thyroid Stimulating Hormone (TSH) 1.733 uIU/mL (0.358-3.74) Coronavirus (COVID-19)(PCR) Negative (NEGATIVE) SARS-CoV-2 Antigen (Rapid) Negative (NEGATIVE) White Blood Count 7.4 x10^3/uL (4.0-11.0) Red Blood Count 4.03 x10^6/uL (3.50-5.40) Hemoglobin 12.2 g/dL (12.0-15.5) Hematocrit 36.9 % (36.0-47.0) Mean Corpuscular Volume 92 fL (79-100) Mean Corpuscular Hemoglobin 30 pg (25-35) Mean Corpuscular Hemoglobin Concent 33 g/dL (31-37) Red Cell Distribution Width 13.9 % (11.5-14.5) Platelet Count 246 x10^3/uL (140-400) Neutrophils (%) (Auto) 75 % (31-73) Lymphocytes (%) (Auto) 19 % (24-48) Monocytes (%) (Auto) 5 % (0-9) Eosinophils (%) (Auto) 1 % (0-3) Basophils (%) (Auto) 1 % (0-3) Neutrophils # (Auto) 5.5 x10^3/uL (1.8-7.7) Lymphocytes # (Auto) 1.4 x10^3/uL (1.0-4.8) Monocytes # (Auto) 0.4 x10^3/uL (0.0-1.1) Eosinophils # (Auto) 0.1 x10^3/uL (0.0-0.7) Basophils # (Auto) 0.0 x10^3/uL (0.0-0.2) Hemoglobin A1c 5.7 % (4.8-5.6) Lactic Acid Level 1.8 mmol/L (0.4-2.0) Test 09/25/20 16:30 09/26/20 04:00 Urine Opiates Screen Neg (NEG) Urine Methadone Screen Neg (NEG) Urine Barbiturates Neg (NEG) Urine Phencyclidine Screen Neg (NEG) Urine Amphetamine/Methamphetamine Neg (NEG) Urine Benzodiazepines Screen Neg (NEG) Urine Cocaine Screen Pos (NEG) Urine Cannabinoids Screen Neg (NEG) Urine Ethyl Alcohol Neg (NEG) White Blood Count 10.0 x10^3/uL (4.0-11.0) Red Blood Count 4.07 x10^6/uL (3.50-5.40) Hemoglobin 12.5 g/dL (12.0-15.5) Hematocrit 37.6 % (36.0-47.0) Mean Corpuscular Volume 92 fL (79-100) Mean Corpuscular Hemoglobin 31 pg (25-35) Mean Corpuscular Hemoglobin Concent 33 g/dL (31-37) Red Cell Distribution Width 14.3 % (11.5-14.5) Platelet Count 279 x10^3/uL (140-400) Neutrophils (%) (Auto) 90 % (31-73) Lymphocytes (%) (Auto) 6 % (24-48) Monocytes (%) (Auto) 4 % (0-9) Eosinophils (%) (Auto) 0 % (0-3) Basophils (%) (Auto) 0 % (0-3) Neutrophils # (Auto) 9.0 x10^3/uL (1.8-7.7) Lymphocytes # (Auto) 0.6 x10^3/uL (1.0-4.8) Monocytes # (Auto) 0.4 x10^3/uL (0.0-1.1) Eosinophils # (Auto) 0.0 x10^3/uL (0.0-0.7) Basophils # (Auto) 0.0 x10^3/uL (0.0-0.2) Segmented Neutrophils % 87 % (35-66) Band Neutrophils % 1 % (0-9) Lymphocytes % 7 % (24-48) Monocytes % 4 % (0-10) Basophils % 1 % (0-3) Platelet Estimate Adequate (ADEQUATE) Sodium Level 139 mmol/L (136-145) Potassium Level 3.5 mmol/L (3.5-5.1) Chloride Level 102 mmol/L (98-107) Carbon Dioxide Level 30 mmol/L (21-32) Anion Gap 7 (6-14) Blood Urea Nitrogen 14 mg/dL (7-20) Creatinine 1.0 mg/dL (0.6-1.0) Estimated GFR (Cockcroft-Gault) 59.2 BUN/Creatinine Ratio 14 (6-20) Glucose Level 156 mg/dL (70-99) Calcium Level 8.8 mg/dL (8.5-10.1) Total Bilirubin 0.5 mg/dL (0.2-1.0) Aspartate Amino Transf (AST/SGOT) 13 U/L (15-37) Alanine Aminotransferase (ALT/SGPT) 31 U/L (14-59) Alkaline Phosphatase 104 U/L (46-116) Total Protein 6.4 g/dL (6.4-8.2) Albumin 3.0 g/dL (3.4-5.0) Albumin/Globulin Ratio 0.9 (1.0-1.7) Laboratory Tests Test 09/25/20 09:20 09/25/20 13:20 09/25/20 16:30 09/26/20 04:00 White Blood Count 7.4 x10^3/uL (4.0-11.0) 10.0 x10^3/uL (4.0-11.0) Red Blood Count 4.03 x10^6/uL (3.50-5.40) 4.07 x10^6/uL (3.50-5.40) Hemoglobin 12.2 g/dL (12.0-15.5) 12.5 g/dL (12.0-15.5) Hematocrit 36.9 % (36.0-47.0) 37.6 % (36.0-47.0) Mean Corpuscular Volume 92 fL (79-100) 92 fL (79-100) Mean Corpuscular Hemoglobin 30 pg (25-35) 31 pg (25-35) Mean Corpuscular Hemoglobin Concent 33 g/dL (31-37) 33 g/dL (31-37) Red Cell Distribution Width 13.9 % (11.5-14.5) 14.3 % (11.5-14.5) Platelet Count 246 x10^3/uL (140-400) 279 x10^3/uL (140-400) Neutrophils (%) (Auto) 75 % (31-73) 90 % (31-73) Lymphocytes (%) (Auto) 19 % (24-48) 6 % (24-48) Monocytes (%) (Auto) 5 % (0-9) 4 % (0-9) Eosinophils (%) (Auto) 1 % (0-3) 0 % (0-3) Basophils (%) (Auto) 1 % (0-3) 0 % (0-3) Neutrophils # (Auto) 5.5 x10^3/uL (1.8-7.7) 9.0 x10^3/uL (1.8-7.7) Lymphocytes # (Auto) 1.4 x10^3/uL (1.0-4.8) 0.6 x10^3/uL (1.0-4.8) Monocytes # (Auto) 0.4 x10^3/uL (0.0-1.1) 0.4 x10^3/uL (0.0-1.1) Eosinophils # (Auto) 0.1 x10^3/uL (0.0-0.7) 0.0 x10^3/uL (0.0-0.7) Basophils # (Auto) 0.0 x10^3/uL (0.0-0.2) 0.0 x10^3/uL (0.0-0.2) Hemoglobin A1c 5.7 % (4.8-5.6) Lactic Acid Level 1.8 mmol/L (0.4-2.0) Troponin I Quantitative 0.151 ng/mL (0.000-0.055) Urine Opiates Screen Neg (NEG) Urine Methadone Screen Neg (NEG) Urine Barbiturates Neg (NEG) Urine Phencyclidine Screen Neg (NEG) Urine Amphetamine/Methamphetamine Neg (NEG) Urine Benzodiazepines Screen Neg (NEG) Urine Cocaine Screen Pos (NEG) Urine Cannabinoids Screen Neg (NEG) Urine Ethyl Alcohol Neg (NEG) Segmented Neutrophils % 87 % (35-66) Band Neutrophils % 1 % (0-9) Lymphocytes % 7 % (24-48) Monocytes % 4 % (0-10) Basophils % 1 % (0-3) Platelet Estimate Adequate (ADEQUATE) Sodium Level 139 mmol/L (136-145) Potassium Level 3.5 mmol/L (3.5-5.1) Chloride Level 102 mmol/L (98-107) Carbon Dioxide Level 30 mmol/L (21-32) Anion Gap 7 (6-14) Blood Urea Nitrogen 14 mg/dL (7-20) Creatinine 1.0 mg/dL (0.6-1.0) Estimated GFR (Cockcroft-Gault) 59.2 BUN/Creatinine Ratio 14 (6-20) Glucose Level 156 mg/dL (70-99) Calcium Level 8.8 mg/dL (8.5-10.1) Total Bilirubin 0.5 mg/dL (0.2-1.0) Aspartate Amino Transf (AST/SGOT) 13 U/L (15-37) Alanine Aminotransferase (ALT/SGPT) 31 U/L (14-59) Alkaline Phosphatase 104 U/L (46-116) Total Protein 6.4 g/dL (6.4-8.2) Albumin 3.0 g/dL (3.4-5.0) Albumin/Globulin Ratio 0.9 (1.0-1.7) Microbiology 09/25/20 Urine Culture - Preliminary, Resulted Medications Current Medications Albuterol/ Ipratropium (Duoneb) 3 ml 1X ONCE NEB Last administered on 09/25/20at 09:24; Start 09/25/20 at 09:00; Stop 09/25/20 at 09:03; Status DC Iohexol (Omnipaque 350 Mg/ml) 100 ml 1X ONCE IV ; Start 09/25/20 at 10:15; Stop 09/25/20 at 10:16; Status DC Info (CONTRAST GIVEN -- Rx MONITORING) 1 each PRN DAILY PRN MC SEE COMMENTS; Start 09/25/20 at 10:15; Stop 09/27/20 at 10:14 Furosemide (Lasix) 40 mg 1X ONCE IVP Last administered on 09/25/20at 10:53; Start 09/25/20 at 11:00; Stop 09/25/20 at 11:01; Status DC Ondansetron HCl (Zofran) 4 mg PRN Q8HRS PRN IV NAUSEA/VOMITING; Start 09/25/20 at 10:45; Stop 09/26/20 at 10:44 Fentanyl Citrate (Fentanyl 2ml Vial) 50 mcg PRN Q1HR PRN IV PAIN; Start 09/25/20 at 10:45; Stop 09/26/20 at 10:44 Acetaminophen (Tylenol) 650 mg PRN Q4HRS PRN PO FEVER > 100.3'F Last administered on 09/26/20at 03:19; Start 09/25/20 at 10:45; Stop 09/26/20 at 10:44 Nitroglycerin (Nitrostat) 0.4 mg PRN Q5MIN PRN SL CHEST PAIN; Start 09/25/20 at 10:45; Stop 09/26/20 at 10:44 Aspirin (Aspirin Chewable) 324 mg 1X ONCE PO Last administered on 09/25/20at 10:52; Start 09/25/20 at 10:45; Stop 09/25/20 at 10:46; Status DC Methylprednisolone Sodium Succinate (SOLU-Medrol 125MG VIAL) 125 mg 1X ONCE IV Last administered on 09/25/20at 13:59; Start 09/25/20 at 13:30; Stop 09/25/20 at 13:31; Status DC Nitroglycerin (Nitro-Bid Oint) 1 inch 1X ONCE TP Last administered on 09/25/20at 14:00; Start 09/25/20 at 13:30; Stop 09/25/20 at 13:31; Status DC Nitroglycerin (Nitro-Bid Oint) 1 inch 1X ONCE TP ; Start 09/25/20 at 13:30; Stop 09/25/20 at 14:55; Status DC Lidocaine HCl (Xylocaine-Mpf 1% 2ml Vial) 2 ml STK-MED ONCE .ROUTE ; Start 09/25/20 at 15:28; Stop 09/25/20 at 15:28; Status DC Iodixanol (Visipaque 320) 100 ml STK-MED ONCE .ROUTE ; Start 09/25/20 at 15:28; Stop 09/25/20 at 15:28; Status DC Heparin Sodium/ Sodium Chloride 1,000 ml @ As Directed STK-MED ONCE .ROUTE ; Start 09/25/20 at 15:28; Stop 09/25/20 at 15:29; Status DC Furosemide (Lasix) 40 mg DAILY IVP Last administered on 09/26/20at 08:25; Start 09/26/20 at 09:00 Potassium Chloride (Klor-Con) 20 meq DAILYWBKFT PO Last administered on 09/26/20at 08:24; Start 09/26/20 at 08:00 Midazolam HCl (Versed) 2 mg STK-MED ONCE .ROUTE ; Start 09/25/20 at 15:31; Stop 09/25/20 at 15:31; Status DC Fentanyl Citrate (Fentanyl 2ml Vial) 100 mcg STK-MED ONCE .ROUTE ; Start 09/25/20 at 15:31; Stop 09/25/20 at 15:31; Status DC Verapamil HCl (Verapamil) 5 mg STK-MED ONCE .ROUTE ; Start 09/25/20 at 15:31; Stop 09/25/20 at 15:32; Status DC Heparin Sodium (Porcine) (Heparin Sodium) 10,000 unit STK-MED ONCE .ROUTE ; Start 09/25/20 at 15:31; Stop 09/25/20 at 15:32; Status DC Nitroglycerin (Nitroglycerin) 200 mcg STK-MED ONCE .ROUTE ; Start 09/25/20 at 15:31; Stop 09/25/20 at 15:32; Status DC Albuterol/ Ipratropium (Duoneb) 3 ml 1X ONCE NEB Last administered on 09/25/20at 16:08; Start 09/25/20 at 16:15; Stop 09/25/20 at 16:16; Status DC Furosemide (Lasix) 100 mg STK-MED ONCE .ROUTE ; Start 09/25/20 at 16:08; Stop 09/25/20 at 16:08; Status DC Nitroglycerin (Nitroglycerin) 200 mcg 1X ONCE IART Last administered on 09/25/20at 16:28; Start 09/25/20 at 16:15; Stop 09/25/20 at 16:18; Status DC Verapamil HCl (Verapamil) 2.5 mg 1X ONCE IART Last administered on 09/25/20at 16:27; Start 09/25/20 at 16:15; Stop 09/25/20 at 16:18; Status DC Heparin Sodium (Porcine) (Heparin Sodium) 2,500 unit 1X ONCE IART Last administered on 09/25/20at 16:28; Start 09/25/20 at 16:15; Stop 09/25/20 at 16:18; Status DC Heparin Sodium/ Sodium Chloride (HEPARIN for ARTERIAL LINE FLUSH) 1,000 unit 1X ONCE IART Last administered on 09/25/20at 16:26; Start 09/25/20 at 16:15; Stop 09/25/20 at 16:18; Status DC Midazolam HCl (Versed) 1 mg 1X ONCE IV Last administered on 09/25/20at 16:26; Start 09/25/20 at 16:15; Stop 09/25/20 at 16:18; Status DC Fentanyl Citrate (Fentanyl 2ml Vial) 50 mcg 1X ONCE IV Last administered on 09/25/20at 16:27; Start 09/25/20 at 16:15; Stop 09/25/20 at 16:18; Status DC Iodixanol (Visipaque 320) 100 ml 1X ONCE IART Last administered on 09/25/20at 16:26; Start 09/25/20 at 16:15; Stop 09/25/20 at 16:18; Status DC Lidocaine HCl (Xylocaine-Mpf 1% 2ml Vial) 2 ml 1X ONCE INJ Last administered on 09/25/20at 16:28; Start 09/25/20 at 16:15; Stop 09/25/20 at 16:18; Status DC Albuterol/ Ipratropium (Duoneb) 3 ml 1X ONCE NEB Last administered on 09/25/20at 16:15; Start 09/25/20 at 16:15; Stop 09/25/20 at 16:18; Status DC Furosemide (Lasix) 40 mg 1X ONCE IVP Last administered on 09/25/20at 16:26; Start 09/25/20 at 16:15; Stop 09/25/20 at 16:18; Status DC Active Scripts Active Bactrim Ds Tablet (Sulfamethoxazole/Trimethoprim) 1 Each Tablet 1 Tab PO BID Reported Cymbalta (Duloxetine Hcl) 60 Mg Capsule. 1 Cap PO DAILY Vitals/I & O Vital Sign - Last 24 Hours 09/25/20 09/25/20 09/25/20 09/25/20 09:24 10:25 10:55 11:55 Pulse 96 95 98 B/P (MAP) 166/102 (123) 142/90 (107) 152/80 (104) Pulse Ox 97 96 95 97 O2 Delivery Nasal Cannula Nasal Cannula Nasal Cannula O2 Flow Rate 2.5 2.0 2.0 2.0 09/25/20 09/25/20 09/25/20 09/25/20 13:00 13:30 14:00 15:00 Temp 97.5 97.2 97.5 97.2 Pulse 97 94 96 Resp 18 18 B/P (MAP) 143/98 (113) 143/98 147/92 (110) Pulse Ox 86 92 O2 Delivery Nasal Cannula Nasal Cannula Nasal Cannula O2 Flow Rate 4.0 09/25/20 09/25/20 09/25/20 09/25/20 16:05 16:27 16:27 16:34 Pulse 93 95 Resp 31 24 Pulse Ox 97 93 91 O2 Delivery Nasal Cannula Nasal Cannula O2 Flow Rate 4.0 4.0 4.0 09/25/20 09/25/20 09/25/20 09/25/20 16:45 17:00 17:15 17:30 Pulse 90 95 92 99 Resp 24 24 22 B/P (MAP) 160/87 (111) 155/96 (115) 145/94 (111) 182/99 (126) Pulse Ox 97 92 90 94 O2 Delivery Nasal Cannula Nasal Cannula Nasal Cannula Nasal Cannula O2 Flow Rate 4.0 4.0 4.0 4.0 09/25/20 09/25/20 09/25/20 09/25/20 18:00 18:06 18:30 19:00 Pulse 102 95 104 B/P (MAP) 165/91 (115) 170/80 (110) 152/76 (101) Pulse Ox 90 92 90 O2 Delivery Nasal Cannula Nasal Cannula Nasal Cannula Nasal Cannula O2 Flow Rate 4.0 4.0 4.0 4.0 09/25/20 09/25/20 09/25/20 09/26/20 19:30 20:08 23:11 03:25 Temp 98.5 97.8 97.7 98.5 97.8 97.7 Pulse 91 91 Resp 22 B/P (MAP) 159/80 (106) 169/97 (121) Pulse Ox 92 92 O2 Delivery Nasal Cannula Nasal Cannula Nasal Cannula O2 Flow Rate 4.0 4.0 4.0 09/26/20 09/26/20 07:00 07:30 Temp 97.9 97.9 Pulse 103 Resp 22 B/P (MAP) 180/99 (126) Pulse Ox 96 O2 Delivery Nasal Cannula Nasal Cannula O2 Flow Rate 4.0 4.0 Intake and Output 09/25/20 09/25/20 09/26/20 15:00 23:00 07:00 Intake Total 480 ml 100 ml Output Total 2800 ml 150 ml Balance -2320 ml -50 ml KELLI VASQUEZ MD Sep 26, 2020 09:08
[2020-09-26] MEDS ORDERED: cefTRIAXone IV Push 1 GM VIAL. IVP SCH (10:00)
[2020-09-26 11:25] VITALS: BP 139/75
[2020-09-26 14:48] VITALS: BP 133/85
--- NOTE | 2020-09-26 18:19 | PDOC ---
CARDIOLOGY PROGRESS NOTE SUBJECTIVE: No new events. patient was positive for cocaine on her testing. No chest pain Breathing better. OBJECTIVE: Vital Signs/I&O: Vital Signs Date Time Temp Pulse Resp B/P (MAP) Pulse Ox O2 Delivery O2 Flow Rate FiO2 09/26/20 14:48 103 22 133/85 (101) 99 Nasal Cannula 4.0 09/26/20 11:25 98.0 98.0 I & O 09/25/20 09/25/20 09/26/20 15:00 23:00 07:00 Intake Total 480 ml 100 ml Output Total 2800 ml 150 ml Balance -2320 ml -50 ml Objective: GEN.: No apparent distress. Alert and oriented. HEENT: Head is normocephalic, atraumatic NECK: Supple. LUNGS: Bilateral wheezing. HEART: RRR, S1, S2 present. Peripheral pulses intact ABDOMEN: Soft, nontender. Positive bowel sounds. EXTREMITIES: Without any cyanosis. NEUROLOGIC: Normal speech, normal tone PSYCHIATRIC: Normal affect, normal mood. SKIN: No ulcerations CURRENT MEDICATIONS: Current Medications Medications (Trade) Dose Ordered Sig/Chandra Route PRN Reason Start Time Stop Time Status Last Admin Dose Admin Furosemide (Lasix) 40 mg DAILY IVP 09/26/20 09:00 09/26/20 08:25 Potassium Chloride (Klor-Con) 20 meq DAILYWBKFT PO 09/26/20 08:00 09/26/20 08:24 Ceftriaxone Sodium (Rocephin) 1 gm Q24H IVP 09/26/20 10:00 09/26/20 10:53 DIAGNOSTIC TESTING: Tele unremarkable. +Cocaine on drug screen. Cath w/o significant disease. CT pe unremarkable. Labs: Laboratory Tests 09/26/20 04:00 Laboratory Tests Test 09/26/20 04:00 White Blood Count 10.0 x10^3/uL (4.0-11.0) Red Blood Count 4.07 x10^6/uL (3.50-5.40) Hemoglobin 12.5 g/dL (12.0-15.5) Hematocrit 37.6 % (36.0-47.0) Mean Corpuscular Volume 92 fL (79-100) Mean Corpuscular Hemoglobin 31 pg (25-35) Mean Corpuscular Hemoglobin Concent 33 g/dL (31-37) Red Cell Distribution Width 14.3 % (11.5-14.5) Platelet Count 279 x10^3/uL (140-400) Neutrophils (%) (Auto) 90 % (31-73) H Lymphocytes (%) (Auto) 6 % (24-48) L Monocytes (%) (Auto) 4 % (0-9) Eosinophils (%) (Auto) 0 % (0-3) Basophils (%) (Auto) 0 % (0-3) Neutrophils # (Auto) 9.0 x10^3/uL (1.8-7.7) H Lymphocytes # (Auto) 0.6 x10^3/uL (1.0-4.8) L Monocytes # (Auto) 0.4 x10^3/uL (0.0-1.1) Eosinophils # (Auto) 0.0 x10^3/uL (0.0-0.7) Basophils # (Auto) 0.0 x10^3/uL (0.0-0.2) Segmented Neutrophils % 87 % (35-66) H Band Neutrophils % 1 % (0-9) Lymphocytes % 7 % (24-48) L Monocytes % 4 % (0-10) Basophils % 1 % (0-3) Platelet Estimate Adequate (ADEQUATE) Sodium Level 139 mmol/L (136-145) Potassium Level 3.5 mmol/L (3.5-5.1) Chloride Level 102 mmol/L (98-107) Carbon Dioxide Level 30 mmol/L (21-32) Anion Gap 7 (6-14) Blood Urea Nitrogen 14 mg/dL (7-20) Creatinine 1.0 mg/dL (0.6-1.0) Estimated GFR (Cockcroft-Gault) 59.2 BUN/Creatinine Ratio 14 (6-20) Glucose Level 156 mg/dL (70-99) H Calcium Level 8.8 mg/dL (8.5-10.1) Total Bilirubin 0.5 mg/dL (0.2-1.0) Aspartate Amino Transf (AST/SGOT) 13 U/L (15-37) L Alkaline Phosphatase 104 U/L (46-116) Total Protein 6.4 g/dL (6.4-8.2) Albumin 3.0 g/dL (3.4-5.0) L Albumin/Globulin Ratio 0.9 (1.0-1.7) L ASSESSMENT: 1. Acute drug induced HTN and flash pulm edema. 2. HTN 3. Probable diastolic HF, acute on chronic. 4. Acute hypoxic resp failure. PLAN: 1. Ok to DC home from CV standpoint. Would recommend DC home on Coreg 6.25mg daily, Amlodipine 10mg daily and lasix 40mg daily and if she remains in house, will obtain echo tomorrow. Supportive care. Thanks. O2 weaning per primary service. Justicifation of Admission Dx: Justifications for Admission: Justification of Admission Dx: N/A ALEXSANDRA BURGESS MD Sep 26, 2020 18:19
[2020-09-26] MEDS ORDERED: CARVEDILOL 6.25 MG TABLET. PO SCH (18:30)
--- NOTE | 2020-09-26 19:15 | NUR ---
Pt seen by Dr. Handley at approximately 1830. He said patient did not need to stay from his standpoint and could leave if she had to. The patient immedietely got dressed and was ready to leave. Pt would not wait for Primary Care to return. Discussed with patients risks of leaving AMA to include . Pt says she has to leave and cannot stay and wait. Dr. Simmons notified of AMA. Pt walked to entrance by RN and then DIRECT MARKETING EXECUTIVE waited until ride came
[2020-09-27] MEDS ORDERED: FUROSEMIDE 20 MG TABLET PO SCH (09:00)
== END 2020-09-26 19:00 | disposition left against medical advice (07) | DRG 280 ==
LOC: ER 08:28 → ED HOLD 10:30 → 2 SOUTH 12:51
PROVIDERS: ADMIT Internal Medicine; ATTEND Internal Medicine
PROC: 4A023N7 Measurement of Cardiac Sampling and Pressure, Left Heart, Percutaneous Approach (ICD-10-PCS; principal; 2020-09-25)
PROC: B211YZZ Fluoroscopy of Multiple Coronary Arteries using Other Contrast (ICD-10-PCS; 2020-09-25)
DX: I11.0 Hypertensive heart disease with heart failure (principal); I21.4 Non-ST elevation (NSTEMI) myocardial infarction; J96.01 Acute respiratory failure with hypoxia; J44.1 Chronic obstructive pulmonary disease with (acute) exacerbation; N39.0 Urinary tract infection, site not specified; I50.43 Acute on chronic combined systolic (congestive) and diastolic (congestive) heart failure; E66.9 Obesity, unspecified; E88.81 Metabolic syndrome and other insulin resistance; F17.210 Nicotine dependence, cigarettes, uncomplicated; I25.10 Atherosclerotic heart disease of native coronary artery without angina pectoris; I44.7 Left bundle-branch block, unspecified; Z20.822 Contact with and (suspected) exposure to COVID-19; Z79.2 Long term (current) use of antibiotics; Z82.49 Family history of ischemic heart disease and other diseases of the circulatory system; Z83.3 Family history of diabetes mellitus; Z90.710 Acquired absence of both cervix and uterus; F32.9 Major depressive disorder, single episode, unspecified; F41.9 Anxiety disorder, unspecified; Z68.36 Body mass index [BMI] 36.0-36.9, adult; Z53.29 Procedure and treatment not carried out because of patient's decision for other reasons
CPT/HCPCS: 36415; 71045; 71275; 80053; 80061; 80307; 81001; 83036; 83605; 83880; 84443; 84484; 85007; 85025; 87077; 87086; 87186; 87426; 93005; 93306; 93458; 94640; 96374; 99152; 99153; C1894; J0696; J1644; J1940; J2250; J2930; J3010; J3490; Q9967; U0003; 99285-25; G0378

== ENCOUNTER 2020-10-02 22:02 | Inpatient (IN) | payer MEDICAID ==
[~2020-10-02] VITALS: Ht 172.7 cm; Wt 108.2 kg
[~2020-10-02 22:02] MED LIST changes: +DULO60CA7 PO
--- NOTE | 2020-10-02 22:42 | ED.ADGEN ---
Past Medical History Past Medical History: Depression Past Surgical History: Hysterectomy, Other Additional Past Surgical Histo: back surgery Smoking Status: Current Every Day Smoker Alcohol Use: None Drug Use: Cocaine General Adult EDM: Chief Complaint: SHORTNESS OF BREATH HPI: HPI: Patient is a 49 year old female coming in for shortness of breath and chest pain. Patient was made to the hospital for new onset CHF but left AMA because she states she cannot find anyone to picket labor union her 4-year-old granddaughter. Patient was not discharged with any medications. Patient states she was feeling better after the diuresis in the hospital. Her heart cath showing diastolic h eart failure. Patient states she still continues to smoke a few cigarettes daily. Review of Systems: Review of Systems: All other systems within normal limits except for as noted in the HPI Current Medications: Current Medications Medications (Trade) Dose Ordered Sig/Chandra Start Time Stop Time Status Last Admin Dose Admin Acetaminophen (Tylenol) 650 mg PRN Q4HRS PRN 10/02/20 23:45 10/03/20 23:44 Albuterol/ Ipratropium (Duoneb) 3 ml 1X ONCE 10/02/20 22:45 10/02/20 22:46 DC 10/02/20 23:05 3 ML Aspirin (Aspirin Chewable) 324 mg 1X ONCE 10/02/20 22:45 10/02/20 22:46 DC 10/02/20 22:45 324 MG Furosemide (Lasix) 40 mg 1X ONCE 10/02/20 23:15 10/02/20 23:17 DC 10/02/20 23:28 40 MG Morphine Sulfate (Morphine Sulfate) 2 mg PRN Q2HR PRN 10/02/20 23:45 10/03/20 23:44 10/03/20 00:59 2 MG Nitroglycerin (Nitrostat) 0.4 mg PRN Q5MIN PRN 10/02/20 23:45 10/03/20 23:44 Ondansetron HCl (Zofran) 4 mg PRN Q8HRS PRN 10/02/20 23:45 10/03/20 23:44 Allergies: Allergies: Allergies Coded Allergies Type Severity Reaction Last Updated Verified No Known Drug Allergies 08/17/13 No Physical Exam: PE: Constitutional: Well developed, well nourished, no acute distress, non-toxic appearance. [] HENT: Normocephalic, atraumatic, bilateral external ears normal, nose normal. [ ] Eyes: PERRLA, conjunctiva normal, no discharge. [] Neck: No rigidity, supple, no stridor. [] Cardiovascular: Tachycardic, irregular rhythm, brisk cap refill [] Lungs & Thorax: Non labored symmetric respirations, no tachypnea or respiratory distress. Bilateral wheezes worse on the left [] Abdomen: Soft, nondistended. Skin: Warm, dry, no erythema, no rash. [] Back: Unremarkable Extremities: No deformities, range of motion grossly intact, no lower extremity edema [] Neurologic: Alert and oriented X 3, no focal deficits noted. [] Psychologic: Affect normal, judgement normal, mood normal. [] Current Patient Data: Labs: Laboratory Tests Test 10/02/20 22:31 10/02/20 23:42 White Blood Count 8.7 x10^3/uL (4.0-11.0) Red Blood Count 4.05 x10^6/uL (3.50-5.40) Hemoglobin 12.4 g/dL (12.0-15.5) Hematocrit 37.4 % (36.0-47.0) Mean Corpuscular Volume 92 fL (79-100) Mean Corpuscular Hemoglobin 31 pg (25-35) Mean Corpuscular Hemoglobin Concent 33 g/dL (31-37) Red Cell Distribution Width 14.6 % (11.5-14.5) H Platelet Count 251 x10^3/uL (140-400) Neutrophils (%) (Auto) 66 % (31-73) Lymphocytes (%) (Auto) 25 % (24-48) Monocytes (%) (Auto) 7 % (0-9) Eosinophils (%) (Auto) 2 % (0-3) Basophils (%) (Auto) 1 % (0-3) Neutrophils # (Auto) 5.7 x10^3/uL (1.8-7.7) Lymphocytes # (Auto) 2.2 x10^3/uL (1.0-4.8) Monocytes # (Auto) 0.6 x10^3/uL (0.0-1.1) Eosinophils # (Auto) 0.1 x10^3/uL (0.0-0.7) Basophils # (Auto) 0.0 x10^3/uL (0.0-0.2) Sodium Level 141 mmol/L (136-145) Potassium Level 3.5 mmol/L (3.5-5.1) Chloride Level 106 mmol/L (98-107) Carbon Dioxide Level 27 mmol/L (21-32) Anion Gap 8 (6-14) Blood Urea Nitrogen 15 mg/dL (7-20) Creatinine 1.2 mg/dL (0.6-1.0) H Estimated GFR (Cockcroft-Gault) 47.9 BUN/Creatinine Ratio 13 (6-20) Glucose Level 117 mg/dL (70-99) H Calcium Level 8.6 mg/dL (8.5-10.1) Phosphorus Level 3.5 mg/dL (2.6-4.7) Magnesium Level 2.3 mg/dL (1.8-2.4) Total Bilirubin 0.5 mg/dL (0.2-1.0) Aspartate Amino Transferase (AST) 32 U/L (15-37) Alanine Aminotransferase (ALT) 52 U/L (14-59) Alkaline Phosphatase 101 U/L (46-116) Troponin I Quantitative 0.242 ng/mL (0.000-0.055) GR-Zyb-P-Type Natriuretic Peptide 58892 pg/mL (0-124) H Total Protein 6.4 g/dL (6.4-8.2) Albumin 3.2 g/dL (3.4-5.0) L Albumin/Globulin Ratio 1.0 (1.0-1.7) Urine Collection Type Unknown Urine Color Yellow Urine Clarity Turbid Urine pH 5.5 (<5.0-8.0) Urine Specific [place] 1.015 (1.000-1.030) Urine Protein 30 mg/dL (NEG-TRACE) Urine Glucose (UA) Negative mg/dL (NEG) Urine Ketones (Stick) Negative mg/dL (NEG) Urine Blood Moderate (NEG) Urine Nitrite Negative (NEG) Urine Bilirubin Negative (NEG) Urine Urobilinogen Dipstick 1.0 mg/dL (0.2 mg/dL) Urine Leukocyte Esterase Large (NEG) Urine RBC 11-20 /HPF (0-2) Urine WBC Tntc /HPF (0-4) Urine Squamous Epithelial Cells Mod /LPF Urine Bacteria Moderate /HPF (0-FEW) Urine Opiates Screen Neg (NEG) Urine Methadone Screen Neg (NEG) Urine Barbiturates Neg (NEG) Urine Phencyclidine Screen Neg (NEG) Urine Amphetamine/Methamphetamine Pos (NEG) Urine Benzodiazepines Screen Neg (NEG) Urine Cocaine Screen Pos (NEG) Urine Cannabinoids Screen Pos (NEG) Urine Ethyl Alcohol Neg (NEG) Laboratory Tests 10/02/20 22:31 Laboratory Tests 10/02/20 22:31 Vital Signs: Vital Signs Date Time Temp Pulse Resp B/P (MAP) Pulse Ox O2 Delivery O2 Flow Rate FiO2 10/02/20 23:46 119 22 211/98 (135) 95 Room Air 10/02/20 22:20 97.9 97.9 EKG: EKG: Sinus tachycardia, wide-complex, prolonged QT interval, no ST elevation or depression, no significant change from ECG dated 09-25-20[] Heart Score: C/O Chest Pain: Yes HEART Score for Chest Pain: HEART Score for Chest Pain Response (Comments) Value History Moderately Suspicious 1 ECG Nonspecific Repolarizatio 1 Age >45 - < 65 1 Risk Factors >3 Risk Factors or Hx CAD 2 Troponin >1-<3x Normal Limit 1 Total 6 Risk Factors: Risk Factors: DM, Current or recent (<one month) smoker, HTN, HLP, family history of CAD, obesity. Risk Scores: Score 0 - 3: 2.5% MACE over next 6 weeks - Discharge Home Score 4 - 6: 20.3% MACE over next 6 weeks - Admit for Clinical Observation Score 7 - 10: 72.7% MACE over next 6 weeks - Early Invasive Strategies Radiology/Procedures: Radiology/Procedures: [facility] [address] [place] [address] IMAGING REPORT Signed PATIENT: VANESSA CAR ACCOUNT: [id number] : 1970 LOCATION: ER AGE: 49 SEX: F EXAM STATUS: REG ER ORD. PHYSICIAN: FIOR HAY MD REASON: dyspnea PROCEDURE: CHEST AP ONLY Exam: Chest one view INDICATION: Dyspnea TECHNIQUE: Frontal view of the chest Comparisons: 09/25/2020 FINDINGS: Heart is mildly enlarged. Pulmonary vessels are within normal limits. Hazy opacity in lungs bilaterally. No pleural effusion. IMPRESSION: No acute pulmonary process. Electronically signed by: Gonzalez Pozo MD (10/02/2020 11:12 PM) [facility] DICTATED and SIGNED BY: GONZALEZ POZO MD DATE: 10/02/20 [id number] [] Course & Med Decision Making: Course & Med Decision Making Pertinent Labs and Imaging studies reviewed. (See chart for details) [] Dragon Disclaimer: Dragon Disclaimer: This electronic medical record was generated, in whole or in part, using a voice recognition dictation system. Departure Departure Impression: Primary Impression: Diastolic heart failure Disposition: ADMITTED INPATIENT Condition: GUARDED Referrals: NO PCP (PCP) FIOR HAY MD Oct 02, 2020 22:42
[2020-10-02] MEDS ORDERED: ASPIRIN CHEWABLE 81 MG TABLET. PO ONE (22:45)
[2020-10-02] MEDS ORDERED: IPRATRPIUM/ALBUTEROL 0.5/2.5MG 3 ML NEBU. NEB ONE (22:45)
[2020-10-02 22:59] LABS: BASO % 1 % (0-3); EOS # 0.1 x10^3/uL (0.0-0.7); EOS % 2 % (0-3); HEMATOCRIT 37.4 % (36.0-47.0); HEMOGLOBIN 12.4 g/dL (12.0-15.5); LYMPH # 2.2 x10^3/uL (1.0-4.8); LYMPH % 25 % (24-48); MEAN CORPUSCULAR HEMOGLOBIN 31 pg (25-35); MEAN CORPUSCULAR HGB CONC 33 g/dL (31-37); MEAN CORPUSCULAR VOLUME 92 fL (79-100); MONO # 0.6 x10^3/uL (0.0-1.1); MONO % 7 % (0-9); NEUT # 5.7 x10^3/uL (1.8-7.7); NEUT % 66 % (31-73); PLATELET COUNT 251 x10^3/uL (140-400); RED BLOOD COUNT 4.05 x10^6/uL (3.50-5.40); RED CELL DISTRIBUTION WIDTH 14.6 % (11.5-14.5); WHITE BLOOD COUNT 8.7 x10^3/uL (4.0-11.0)
[2020-10-02 23:11] LABS: CALCIUM 8.6 mg/dL (8.5-10.1); CREATININE 1.2 mg/dL (0.6-1.0); GFR 47.9; POTASSIUM 3.5 mmol/L (3.5-5.1)
--- NOTE | 2020-10-02 23:14 | RAD ---
Exam: Chest one view INDICATION: Dyspnea TECHNIQUE: Frontal view of the chest Comparisons: 09/25/2020 FINDINGS: Heart is mildly enlarged. Pulmonary vessels are within normal limits. Hazy opacity in lungs bilaterally. No pleural effusion. IMPRESSION: No acute pulmonary process. Electronically signed by: Gonzalez Lozano MD (10/02/2020 11:12 PM) [facility]
[2020-10-02] MEDS ORDERED: FUROSEMIDE 40 MG/4 ML VIAL. IVP ONE (23:15)
[2020-10-02 23:17] LABS: ALBUMIN 3.2 g/dL (3.4-5.0); MAGNESIUM 2.3 mg/dL (1.8-2.4); PHOSPHORUS 3.5 mg/dL (2.6-4.7); TOTAL BILIRUBIN 0.5 mg/dL (0.2-1.0); TOTAL PROTEIN 6.4 g/dL (6.4-8.2)
[2020-10-02] MEDS ORDERED: ACETAMINOPHEN 325 MG TABLET. PO PRN (23:45)
[2020-10-02] MEDS ORDERED: ONDANSETRON PF 4 MG/2 ML VIAL. IV PRN (23:45)
[2020-10-02] MEDS ORDERED: NITROGLYCERIN SUBLINGUAL 0.4 MG BOTTLE OF 25. SL PRN (23:45)
[2020-10-03 00:04] LABS: BILIRUBIN,URINE NEGATIVE (NEG); CLARITY,URINE TURBID; COLOR,URINE YELLOW; NITRITE,URINE NEGATIVE (NEG); PH,URINE 5.5 (<5.0-8.0); PROTEIN,URINE 30 mg/dL (NEG-TRACE)
[2020-10-03 00:38] LABS: BACTERIA,URINE MODERATE /HPF (0-FEW); WBC,URINE TNTC /HPF (0-4)
[2020-10-03 00:39] LABS: BARBITURATES NEG (NEG); BENZODIAZEPINES NEG (NEG); CANNABINOIDS POS (NEG); COCAINE POS (NEG); METHADONE NEG (NEG); OPIATES NEG (NEG); PHENCYCLIDINE NEG (NEG)
[2020-10-03 00:40] LABS: AMPHETAMINE/METHAMPHETAMINE POS (NEG)
[2020-10-03] MEDS: MORPHINE SULFATE 2 MG/ML INJ. IV PRN ×2 (00:59→07:57)
[2020-10-03 01:00] VITALS: BP 142/94
--- NOTE | 2020-10-03 01:20 | EKG ---
[facility] [address] [place] [address] Test Date: 2020-10-02 Test Time: 22:19:06 Pat Name: VANESSA CAR Department: Room: 258 1 Gender: F Nursing Program Coordinator: : 1970 Requested By: FIOR HAY Order Number: [id number] Reading MD: Rodger Handley MD Measurements Intervals Deep Gap Rate: 134 P: 0 IN: 86 QRS: 31 QRSD: 150 T: 164 QT: 334 QTc: 506 Interpretive Statements PROBABLE ATRIAL FIBRILLATION WITH LBBB VERSUS SINUS RHYTHM WITH PAC'S AND LBBB Electronically Signed On 10-03-2020 11:28:05 CDT by Rodger Handley MD
--- NOTE | 2020-10-03 01:54 | NUR ---
Admit from ED to [facility] room 258 via WC. Alert on arrival to unit. Restless. Shaky. Reports CP rated 11/03. HR 110s. Positive for Meth, Cocaine and Marijuana on UDS this admit. Was admitted on 09/25 for same Chief Complaint. [facility] 09/25. Dx CHF and Mild Nonobstructive CAD. Signed out AMA 09/27. Orientated to unit and call light. Reviewed POC to include Tele Monitor, Lab draws such as Troponin and Instructed to to call for standby assist while out of bed. Verbalized understanding. Resting in bed. Call light at hand. Bed alarm on.
[2020-10-03 02:21] VITALS: BP 134/96
[2020-10-03 06:43] LABS: BASO # 0.1 x10^3/uL (0.0-0.2); BASO % 1 % (0-3); EOS # 0.1 x10^3/uL (0.0-0.7); EOS % 1 % (0-3); HEMATOCRIT 38.4 % (36.0-47.0); HEMOGLOBIN 12.4 g/dL (12.0-15.5); LYMPH # 1.9 x10^3/uL (1.0-4.8); LYMPH % 23 % (24-48); MEAN CORPUSCULAR HEMOGLOBIN 30 pg (25-35); MEAN CORPUSCULAR HGB CONC 32 g/dL (31-37); MEAN CORPUSCULAR VOLUME 92 fL (79-100); MONO # 0.6 x10^3/uL (0.0-1.1); MONO % 7 % (0-9); NEUT # 5.7 x10^3/uL (1.8-7.7); NEUT % 69 % (31-73); PLATELET COUNT 242 x10^3/uL (140-400); RED BLOOD COUNT 4.16 x10^6/uL (3.50-5.40); RED CELL DISTRIBUTION WIDTH 14.9 % (11.5-14.5); WHITE BLOOD COUNT 8.3 x10^3/uL (4.0-11.0)
[2020-10-03 07:00] VITALS: BP 137/89
[2020-10-03 07:17] LABS: CALCIUM 8.4 mg/dL (8.5-10.1); CREATININE 1.2 mg/dL (0.6-1.0); GFR 47.9; POTASSIUM 3.4 mmol/L (3.5-5.1)
[2020-10-03] MEDS: IPRATRPIUM/ALBUTEROL 0.5/2.5MG 3 ML NEBU. NEB SCH ×3 (07:40→15:24)
[2020-10-03 11:16] VITALS: BP 113/87
--- NOTE | 2020-10-03 11:26 | PDOC ---
CARDIOLOGY PROGRESS NOTE SUBJECTIVE: Patient known to our service from last visit. She had a cath and was noted to have drug abuse. She left AMA and came back last night with hypertension and SOA She was positive for meth, cocaine and marijuana Reports feeling better now. OBJECTIVE: Vital Signs/I&O: Vital Signs Date Time Temp Pulse Resp B/P (MAP) Pulse Ox O2 Delivery O2 Flow Rate FiO2 10/03/20 11:16 97.6 87 18 113/87 (96) 91 Room Air 97.6 10/03/20 08:00 2.0 I & O 10/02/20 10/02/20 10/03/20 14:59 22:59 06:59 Intake Total 300 ml Balance 300 ml Objective: GEN.: No apparent distress. Alert and oriented. HEENT: Head is normocephalic, atraumatic NECK: Supple. LUNGS: Clear to auscultation. HEART: RRR, S1, S2 present. Peripheral pulses intact ABDOMEN: Soft, nontender. Positive bowel sounds. EXTREMITIES: Without any cyanosis. NEUROLOGIC: Normal speech, normal tone PSYCHIATRIC: Normal affect, normal mood. SKIN: No ulcerations CURRENT MEDICATIONS: Current Medications Medications (Trade) Dose Ordered Sig/Chandra Route PRN Reason Start Time Stop Time Status Last Admin Dose Admin Albuterol/ Ipratropium (Duoneb) 3 ml 1X ONCE NEB 10/02/20 22:45 10/02/20 22:46 DC 10/02/20 23:05 Aspirin (Aspirin Chewable) 324 mg 1X ONCE PO 10/02/20 22:45 10/02/20 22:46 DC 10/02/20 22:45 Furosemide (Lasix) 40 mg 1X ONCE IVP 10/02/20 23:15 10/02/20 23:17 DC 10/02/20 23:28 Morphine Sulfate (Morphine Sulfate) 2 mg PRN Q2HR PRN IV PAIN 10/02/20 23:45 10/03/20 23:44 10/03/20 07:57 Albuterol/ Ipratropium (Duoneb) 3 ml RTQID NEB 10/03/20 08:00 10/04/20 07:59 10/03/20 07:40 DIAGNOSTIC TESTING: Labs reviewed. EKG reviewed Trop mildly elevated. Labs: Laboratory Tests 10/03/20 05:10 7/10/21 05:25 Laboratory Tests Test 10/02/20 22:31 10/02/20 23:42 10/03/20 05:10 10/03/20 05:25 White Blood Count 8.7 x10^3/uL (4.0-11.0) 8.3 x10^3/uL (4.0-11.0) Red Blood Count 4.05 x10^6/uL (3.50-5.40) 4.16 x10^6/uL (3.50-5.40) Hemoglobin 12.4 g/dL (12.0-15.5) 12.4 g/dL (12.0-15.5) Hematocrit 37.4 % (36.0-47.0) 38.4 % (36.0-47.0) Mean Corpuscular Volume 92 fL (79-100) 92 fL (79-100) Mean Corpuscular Hemoglobin 31 pg (25-35) 30 pg (25-35) Mean Corpuscular Hemoglobin Concent 33 g/dL (31-37) 32 g/dL (31-37) Red Cell Distribution Width 14.6 % (11.5-14.5) H 14.9 % (11.5-14.5) H Platelet Count 251 x10^3/uL (140-400) 242 x10^3/uL (140-400) Neutrophils (%) (Auto) 66 % (31-73) 69 % (31-73) Lymphocytes (%) (Auto) 25 % (24-48) 23 % (24-48) L Monocytes (%) (Auto) 7 % (0-9) 7 % (0-9) Eosinophils (%) (Auto) 2 % (0-3) 1 % (0-3) Basophils (%) (Auto) 1 % (0-3) 1 % (0-3) Neutrophils # (Auto) 5.7 x10^3/uL (1.8-7.7) 5.7 x10^3/uL (1.8-7.7) Lymphocytes # (Auto) 2.2 x10^3/uL (1.0-4.8) 1.9 x10^3/uL (1.0-4.8) Monocytes # (Auto) 0.6 x10^3/uL (0.0-1.1) 0.6 x10^3/uL (0.0-1.1) Eosinophils # (Auto) 0.1 x10^3/uL (0.0-0.7) 0.1 x10^3/uL (0.0-0.7) Basophils # (Auto) 0.0 x10^3/uL (0.0-0.2) 0.1 x10^3/uL (0.0-0.2) Sodium Level 141 mmol/L (136-145) 143 mmol/L (136-145) Potassium Level 3.5 mmol/L (3.5-5.1) 3.4 mmol/L (3.5-5.1) L Chloride Level 106 mmol/L (98-107) 106 mmol/L (98-107) Carbon Dioxide Level 27 mmol/L (21-32) 27 mmol/L (21-32) Anion Gap 8 (6-14) 10 (6-14) Blood Urea Nitrogen 15 mg/dL (7-20) 15 mg/dL (7-20) Creatinine 1.2 mg/dL (0.6-1.0) H 1.2 mg/dL (0.6-1.0) H Estimated GFR (Cockcroft-Gault) 47.9 47.9 BUN/Creatinine Ratio 13 (6-20) Glucose Level 117 mg/dL (70-99) H 102 mg/dL (70-99) H Calcium Level 8.6 mg/dL (8.5-10.1) 8.4 mg/dL (8.5-10.1) L Phosphorus Level 3.5 mg/dL (2.6-4.7) Total Bilirubin 0.5 mg/dL (0.2-1.0) Aspartate Amino Transf (AST/SGOT) 32 U/L (15-37) Alkaline Phosphatase 101 U/L (46-116) Total Protein 6.4 g/dL (6.4-8.2) Albumin 3.2 g/dL (3.4-5.0) L Albumin/Globulin Ratio 1.0 (1.0-1.7) Urine Collection Type Unknown Urine Color Yellow Urine Clarity Turbid Urine pH 5.5 (<5.0-8.0) Urine Specific [place] 1.015 (1.000-1.030) Urine Protein 30 mg/dL (NEG-TRACE) Urine Glucose (UA) Negative mg/dL (NEG) Urine Ketones (Stick) Negative mg/dL (NEG) Urine Blood Moderate (NEG) Urine Nitrite Negative (NEG) Urine Bilirubin Negative (NEG) Urine Urobilinogen Dipstick 1.0 mg/dL (0.2 mg/dL) Urine Leukocyte Esterase Large (NEG) Urine RBC 11-20 /HPF (0-2) Urine WBC Tntc /HPF (0-4) Urine Squamous Epithelial Cells Mod /LPF Urine Bacteria Moderate /HPF (0-FEW) Urine Opiates Screen Neg (NEG) Urine Methadone Screen Neg (NEG) Urine Barbiturates Neg (NEG) Urine Phencyclidine Screen Neg (NEG) Urine Amphetamine/Methamphetamine Pos (NEG) Urine Benzodiazepines Screen Neg (NEG) Urine Cocaine Screen Pos (NEG) Urine Cannabinoids Screen Pos (NEG) Urine Ethyl Alcohol Neg (NEG) ASSESSMENT: 1. Polysubstance abuse induced HTN 2. Cannot rule out cardiomyopathy 3. HTN - unclear if she has any baseline htn. 4. Hypoxia likely related to COPD and heart failure. PLAN: 1. Check echo, monitor BP for now. 2. If being discharged, consider amlodipine 5mg daily, Imdur 30mg daily and we will plan for f/u in the office. IF she remains in house, will check echo tomorrow. Thanks. Justicifation of Admission Dx: Justifications for Admission: Justification of Admission Dx: N/A ALEXSANDRA BURGESS MD Oct 03, 2020 11:26
[2020-10-03] MEDS ORDERED: AMLO5TAB4 PO (13:07)
[2020-10-03] MEDS ORDERED: ISOS30TA68 PO (13:08)
--- NOTE | 2020-10-03 13:20 | PDOC1 ---
History and Physical Date of Service: DOS: DATE: 10/03/20 TIME: 13:15 Chief Complaint: Problems: (1) Chest pain (2) CHF (congestive heart failure) (3) Diastolic heart failure (4) Elevated troponin History of Present Illness: Reason for Visit: chest pain HPI: Patient is a 49-year-old white female presented to the emergency room complaining of chest pain and shortness of breath. Patient recently discharged on September 26 when she left AMA. She was admitted for that admission on the second complaining of chest pain and shortness of breath as well. She had a cardiac cath during that admission and was found to have chronic diastolic heart failure and mild CAD. 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 She returned overnight she was experiencing the same symptoms that brought her to the ER on the first visit. Other than a very mild troponin bump which is likely still secondary to her hypertension when she presented lab work-up relatively unremarkable. BNP was elevated in light of her heart failure. The time I was able to evaluate the patient she reported being overall symptom free. Past Medical/Surgical History: PMH/PSH: Hypertension, diastolic CHF, COPD, tobacco abuse, depression status post hysterectomy Allergies: Allergies: Coded Allergies: No Known Drug Allergies (Unverified , 08/17/13) Family History: Family History: Diabetes Social History: Social History: Active drug user; UDS positive for methamphetamine, cocaine and marijuana on this admission; smokes a pack of tobacco a day has been since she was about 16. Does not drink alcohol Current Medications: Current Medications Current Medications Albuterol/ Ipratropium (Duoneb) 3 ml 1X ONCE NEB Last administered on 10/02/20at 23:05; Start 10/02/20 at 22:45; Stop 10/02/20 at 22:46; Status DC Aspirin (Aspirin Chewable) 324 mg 1X ONCE PO Last administered on 10/02/20at 22:45; Start 10/02/20 at 22:45; Stop 10/02/20 at 22:46; Status DC Furosemide (Lasix) 40 mg 1X ONCE IVP Last administered on 10/02/20at 23:28; Start 10/02/20 at 23:15; Stop 10/02/20 at 23:17; Status DC Ondansetron HCl (Zofran) 4 mg PRN Q8HRS PRN IV NAUSEA/VOMITING; Start 10/02/20 at 23:45; Stop 10/03/20 at 23:44 Morphine Sulfate (Morphine Sulfate) 2 mg PRN Q2HR PRN IV PAIN Last administered on 10/03/20at 07:57; Start 10/02/20 at 23:45; Stop 10/03/20 at 23:44 Acetaminophen (Tylenol) 650 mg PRN Q4HRS PRN PO FEVER > 100.3'F; Start 10/02/20 at 23:45; Stop 10/03/20 at 23:44 Nitroglycerin (Nitrostat) 0.4 mg PRN Q5MIN PRN SL CHEST PAIN; Start 10/02/20 at 23:45; Stop 10/03/20 at 23:44 Albuterol/ Ipratropium (Duoneb) 3 ml RTQID NEB Last administered on 10/03/20at 11:30; Start 10/03/20 at 08:00; Stop 10/04/20 at 07:59 Active Scripts Active Bactrim Ds Tablet (Sulfamethoxazole/Trimethoprim) 1 Each Tablet 1 Tab PO BID Reported Cymbalta (Duloxetine Hcl) 60 Mg Capsule. 1 Cap PO DAILY ROS: Review of Systems Review of System REVIEW OF SYSTEMS: GENERAL: Denies weakness SKIN: No bruising, hair changes or rashes. EYES: No blurred, double or loss of vision. NOSE AND THROAT: No history of nosebleeds, hoarseness or sore throat. HEART: Chest pain present on admission has resolved LUNGS: Mild shortness of breath GASTROINTESTINAL: Denies changes in appetite, nausea, vomiting, diarrhea or constipation. GENITOURINARY: No history of frequency, urgency, hesitancy or nocturia. NEUROLOGIC: Denies history of numbness, tingling, or tremor. PSYCHIATRIC: Has history of depression ENDOCRINE: No history of heat or cold intolerance, polyuria or polydipsia. EXTREMITIES: Denies joint pain, pain on walking or stiffness. Physical Exam: Vital Signs: Vital Signs Date Time Temp Pulse Resp B/P (MAP) Pulse Ox O2 Delivery O2 Flow Rate FiO2 10/03/20 11:30 95 Room Air 10/03/20 11:16 97.6 87 18 113/87 (96) 97.6 10/03/20 08:00 2.0 Physcial Exam: GEN: No apparent distress. Alert and oriented HEENT: Very poor dentition EYES: Extraocular muscles are intact, pupil are equally round and reactive to light and accommodation MUSCULOSKELETAL: Well developed , well nourished, good range of motion ENDOCRINE: No thyromegaly was palpated LYMPHATICS: No cervical chain or axillary nodes were noted NECK: Supple, no JVD, no thyromegaly was noted LUNGS: Clear to auscultation in all lung mel[place] without rhonchi or wheezing HEART: RRR, S!, S2 present. Peripheral pulses intact, no obvious murmurs noted ABDOMEN: Soft, nontender. Positive bowel sounds, no organomegaly, normal bowel sounds EXTREMITIES: Without clubbing, cyanosis, or edema. Pedal pulses intact. Negative Homans sign NEUROLOGIC: Normal speech and tone. A&O x 3, moves all extremities, no obvious focal deficits PSYCHIATRIC: Normal affect, normal mood. Stable SKIN: No ulcerations or rashes, good skin turgor, no jaundice VASCULAR: Good capillary refill, neurovascular bundle appears to be intact Labs: Labs: Laboratory Tests Test 10/02/20 22:31 10/02/20 23:42 10/03/20 02:40 10/03/20 05:10 White Blood Count 8.7 x10^3/uL (4.0-11.0) 8.3 x10^3/uL (4.0-11.0) Red Blood Count 4.05 x10^6/uL (3.50-5.40) 4.16 x10^6/uL (3.50-5.40) Hemoglobin 12.4 g/dL (12.0-15.5) 12.4 g/dL (12.0-15.5) Hematocrit 37.4 % (36.0-47.0) 38.4 % (36.0-47.0) Mean Corpuscular Volume 92 fL (79-100) 92 fL (79-100) Mean Corpuscular Hemoglobin 31 pg (25-35) 30 pg (25-35) Mean Corpuscular Hemoglobin Concent 33 g/dL (31-37) 32 g/dL (31-37) Red Cell Distribution Width 14.6 % (11.5-14.5) 14.9 % (11.5-14.5) Platelet Count 251 x10^3/uL (140-400) 242 x10^3/uL (140-400) Neutrophils (%) (Auto) 66 % (31-73) 69 % (31-73) Lymphocytes (%) (Auto) 25 % (24-48) 23 % (24-48) Monocytes (%) (Auto) 7 % (0-9) 7 % (0-9) Eosinophils (%) (Auto) 2 % (0-3) 1 % (0-3) Basophils (%) (Auto) 1 % (0-3) 1 % (0-3) Neutrophils # (Auto) 5.7 x10^3/uL (1.8-7.7) 5.7 x10^3/uL (1.8-7.7) Lymphocytes # (Auto) 2.2 x10^3/uL (1.0-4.8) 1.9 x10^3/uL (1.0-4.8) Monocytes # (Auto) 0.6 x10^3/uL (0.0-1.1) 0.6 x10^3/uL (0.0-1.1) Eosinophils # (Auto) 0.1 x10^3/uL (0.0-0.7) 0.1 x10^3/uL (0.0-0.7) Basophils # (Auto) 0.0 x10^3/uL (0.0-0.2) 0.1 x10^3/uL (0.0-0.2) Sodium Level 141 mmol/L (136-145) Potassium Level 3.5 mmol/L (3.5-5.1) Chloride Level 106 mmol/L (98-107) Carbon Dioxide Level 27 mmol/L (21-32) Anion Gap 8 (6-14) Blood Urea Nitrogen 15 mg/dL (7-20) Creatinine 1.2 mg/dL (0.6-1.0) Estimated GFR (Cockcroft-Gault) 47.9 BUN/Creatinine Ratio 13 (6-20) Glucose Level 117 mg/dL (70-99) Calcium Level 8.6 mg/dL (8.5-10.1) Phosphorus Level 3.5 mg/dL (2.6-4.7) Magnesium Level 2.3 mg/dL (1.8-2.4) Total Bilirubin 0.5 mg/dL (0.2-1.0) Aspartate Amino Transf (AST/SGOT) 32 U/L (15-37) Alanine Aminotransferase (ALT/SGPT) 52 U/L (14-59) Alkaline Phosphatase 101 U/L (46-116) Troponin I Quantitative 0.242 ng/mL (0.000-0.055) 0.225 ng/mL (0.000-0.055) KE-Lzc-X-Type Natriuretic Peptide 48456 pg/mL (0-124) Total Protein 6.4 g/dL (6.4-8.2) Albumin 3.2 g/dL (3.4-5.0) Albumin/Globulin Ratio 1.0 (1.0-1.7) Urine Collection Type Unknown Urine Color Yellow Urine Clarity Turbid Urine pH 5.5 (<5.0-8.0) Urine Specific [place] 1.015 (1.000-1.030) Urine Protein 30 mg/dL (NEG-TRACE) Urine Glucose (UA) Negative mg/dL (NEG) Urine Ketones (Stick) Negative mg/dL (NEG) Urine Blood Moderate (NEG) Urine Nitrite Negative (NEG) Urine Bilirubin Negative (NEG) Urine Urobilinogen Dipstick 1.0 mg/dL (0.2 mg/dL) Urine Leukocyte Esterase Large (NEG) Urine RBC 11-20 /HPF (0-2) Urine WBC Tntc /HPF (0-4) Urine Squamous Epithelial Cells Mod /LPF Urine Bacteria Moderate /HPF (0-FEW) Urine Opiates Screen Neg (NEG) Urine Methadone Screen Neg (NEG) Urine Barbiturates Neg (NEG) Urine Phencyclidine Screen Neg (NEG) Urine Amphetamine/Methamphetamine Pos (NEG) Urine Benzodiazepines Screen Neg (NEG) Urine Cocaine Screen Pos (NEG) Urine Cannabinoids Screen Pos (NEG) Urine Ethyl Alcohol Neg (NEG) Test 10/03/20 05:25 Sodium Level 143 mmol/L (136-145) Potassium Level 3.4 mmol/L (3.5-5.1) Chloride Level 106 mmol/L (98-107) Carbon Dioxide Level 27 mmol/L (21-32) Anion Gap 10 (6-14) Blood Urea Nitrogen 15 mg/dL (7-20) Creatinine 1.2 mg/dL (0.6-1.0) Estimated GFR (Cockcroft-Gault) 47.9 Glucose Level 102 mg/dL (70-99) Calcium Level 8.4 mg/dL (8.5-10.1) Troponin I Quantitative 0.250 ng/mL (0.000-0.055) Laboratory Tests Test 10/02/20 22:31 10/02/20 23:42 10/03/20 02:40 10/03/20 05:10 White Blood Count 8.7 x10^3/uL (4.0-11.0) 8.3 x10^3/uL (4.0-11.0) Red Blood Count 4.05 x10^6/uL (3.50-5.40) 4.16 x10^6/uL (3.50-5.40) Hemoglobin 12.4 g/dL (12.0-15.5) 12.4 g/dL (12.0-15.5) Hematocrit 37.4 % (36.0-47.0) 38.4 % (36.0-47.0) Mean Corpuscular Volume 92 fL (79-100) 92 fL (79-100) Mean Corpuscular Hemoglobin 31 pg (25-35) 30 pg (25-35) Mean Corpuscular Hemoglobin Concent 33 g/dL (31-37) 32 g/dL (31-37) Red Cell Distribution Width 14.6 % (11.5-14.5) 14.9 % (11.5-14.5) Platelet Count 251 x10^3/uL (140-400) 242 x10^3/uL (140-400) Neutrophils (%) (Auto) 66 % (31-73) 69 % (31-73) Lymphocytes (%) (Auto) 25 % (24-48) 23 % (24-48) Monocytes (%) (Auto) 7 % (0-9) 7 % (0-9) Eosinophils (%) (Auto) 2 % (0-3) 1 % (0-3) Basophils (%) (Auto) 1 % (0-3) 1 % (0-3) Neutrophils # (Auto) 5.7 x10^3/uL (1.8-7.7) 5.7 x10^3/uL (1.8-7.7) Lymphocytes # (Auto) 2.2 x10^3/uL (1.0-4.8) 1.9 x10^3/uL (1.0-4.8) Monocytes # (Auto) 0.6 x10^3/uL (0.0-1.1) 0.6 x10^3/uL (0.0-1.1) Eosinophils # (Auto) 0.1 x10^3/uL (0.0-0.7) 0.1 x10^3/uL (0.0-0.7) Basophils # (Auto) 0.0 x10^3/uL (0.0-0.2) 0.1 x10^3/uL (0.0-0.2) Sodium Level 141 mmol/L (136-145) Potassium Level 3.5 mmol/L (3.5-5.1) Chloride Level 106 mmol/L (98-107) Carbon Dioxide Level 27 mmol/L (21-32) Anion Gap 8 (6-14) Blood Urea Nitrogen 15 mg/dL (7-20) Creatinine 1.2 mg/dL (0.6-1.0) Estimated GFR (Cockcroft-Gault) 47.9 BUN/Creatinine Ratio 13 (6-20) Glucose Level 117 mg/dL (70-99) Calcium Level 8.6 mg/dL (8.5-10.1) Phosphorus Level 3.5 mg/dL (2.6-4.7) Magnesium Level 2.3 mg/dL (1.8-2.4) Total Bilirubin 0.5 mg/dL (0.2-1.0) Aspartate Amino Transf (AST/SGOT) 32 U/L (15-37) Alanine Aminotransferase (ALT/SGPT) 52 U/L (14-59) Alkaline Phosphatase 101 U/L (46-116) Troponin I Quantitative 0.242 ng/mL (0.000-0.055) 0.225 ng/mL (0.000-0.055) KH-End-M-Type Natriuretic Peptide 21380 pg/mL (0-124) Total Protein 6.4 g/dL (6.4-8.2) Albumin 3.2 g/dL (3.4-5.0) Albumin/Globulin Ratio 1.0 (1.0-1.7) Urine Collection Type Unknown Urine Color Yellow Urine Clarity Turbid Urine pH 5.5 (<5.0-8.0) Urine Specific [place] 1.015 (1.000-1.030) Urine Protein 30 mg/dL (NEG-TRACE) Urine Glucose (UA) Negative mg/dL (NEG) Urine Ketones (Stick) Negative mg/dL (NEG) Urine Blood Moderate (NEG) Urine Nitrite Negative (NEG) Urine Bilirubin Negative (NEG) Urine Urobilinogen Dipstick 1.0 mg/dL (0.2 mg/dL) Urine Leukocyte Esterase Large (NEG) Urine RBC 11-20 /HPF (0-2) Urine WBC Tntc /HPF (0-4) Urine Squamous Epithelial Cells Mod /LPF Urine Bacteria Moderate /HPF (0-FEW) Urine Opiates Screen Neg (NEG) Urine Methadone Screen Neg (NEG) Urine Barbiturates Neg (NEG) Urine Phencyclidine Screen Neg (NEG) Urine Amphetamine/Methamphetamine Pos (NEG) Urine Benzodiazepines Screen Neg (NEG) Urine Cocaine Screen Pos (NEG) Urine Cannabinoids Screen Pos (NEG) Urine Ethyl Alcohol Neg (NEG) Test 10/03/20 05:25 Sodium Level 143 mmol/L (136-145) Potassium Level 3.4 mmol/L (3.5-5.1) Chloride Level 106 mmol/L (98-107) Carbon Dioxide Level 27 mmol/L (21-32) Anion Gap 10 (6-14) Blood Urea Nitrogen 15 mg/dL (7-20) Creatinine 1.2 mg/dL (0.6-1.0) Estimated GFR (Cockcroft-Gault) 47.9 Glucose Level 102 mg/dL (70-99) Calcium Level 8.4 mg/dL (8.5-10.1) Troponin I Quantitative 0.250 ng/mL (0.000-0.055) Assessment/Plan Assessment/Plan Patient is a 49-year-old female who presented overnight with chest pain shortness of breath. Elevated troponin, diastolic heart failure, chest pain, shortness of breath, substance abuse, active tobacco use -Troponins very mildly elevated at admission, this likely stems from her hypertension and baseline heart failure -When she left her last discharge she did not pick pack worker any of her outpatient medications causing recurrence of her symptoms -By my evaluation chest pain had resolved and she was breathing better -Cardiology consulted; recommend outpatient amlodipine 5 and Imdur 30, prescribed and sent to her preferred pharmacy -If patient were to stay in-house we will check an echo but patient is very eager to discharge -Due to her active smoking and COPD history will provide her with albuterol inhaler and start Symbicort -We will need outpatient smoking cessation and substance abuse lifestyle anatoliy fications Justifications for Admission Other Justification ARELIS QUINTERO MD Oct 03, 2020 13:19
[2020-10-03] MEDS ORDERED: ALBU2.5V8 INH (13:44)
[2020-10-03] MEDS ORDERED: BUDE10.2 IH (13:45)
--- NOTE | 2020-10-03 13:48 | PDOC3 ---
Discharge Summary Visit Information Date of Admission: Oct 03, 2020 Date of Discharge: Oct 03, 2020 Admitting Diagnosis: chest pain Final Diagnosis Problems Medical Problems: (1) Diastolic heart failure Status: Acute Brief Hospital Course Allergies Allergies Coded Allergies Type Severity Reaction Last Updated Verified No Known Drug Allergies 08/17/13 No Vital Signs Vital Signs Date Time Temp Pulse Resp B/P (MAP) Pulse Ox O2 Delivery O2 Flow Rate FiO2 10/03/20 11:30 95 Room Air 10/03/20 11:16 97.6 87 18 113/87 (96) 97.6 10/03/20 08:00 2.0 Lab Results Laboratory Tests Test 10/02/20 22:31 10/02/20 23:42 10/03/20 02:40 10/03/20 05:10 White Blood Count 8.7 x10^3/uL (4.0-11.0) 8.3 x10^3/uL (4.0-11.0) Red Blood Count 4.05 x10^6/uL (3.50-5.40) 4.16 x10^6/uL (3.50-5.40) Hemoglobin 12.4 g/dL (12.0-15.5) 12.4 g/dL (12.0-15.5) Hematocrit 37.4 % (36.0-47.0) 38.4 % (36.0-47.0) Mean Corpuscular Volume 92 fL (79-100) 92 fL (79-100) Mean Corpuscular Hemoglobin 31 pg (25-35) 30 pg (25-35) Mean Corpuscular Hemoglobin Concent 33 g/dL (31-37) 32 g/dL (31-37) Red Cell Distribution Width 14.6 % (11.5-14.5) 14.9 % (11.5-14.5) Platelet Count 251 x10^3/uL (140-400) 242 x10^3/uL (140-400) Neutrophils (%) (Auto) 66 % (31-73) 69 % (31-73) Lymphocytes (%) (Auto) 25 % (24-48) 23 % (24-48) Monocytes (%) (Auto) 7 % (0-9) 7 % (0-9) Eosinophils (%) (Auto) 2 % (0-3) 1 % (0-3) Basophils (%) (Auto) 1 % (0-3) 1 % (0-3) Neutrophils # (Auto) 5.7 x10^3/uL (1.8-7.7) 5.7 x10^3/uL (1.8-7.7) Lymphocytes # (Auto) 2.2 x10^3/uL (1.0-4.8) 1.9 x10^3/uL (1.0-4.8) Monocytes # (Auto) 0.6 x10^3/uL (0.0-1.1) 0.6 x10^3/uL (0.0-1.1) Eosinophils # (Auto) 0.1 x10^3/uL (0.0-0.7) 0.1 x10^3/uL (0.0-0.7) Basophils # (Auto) 0.0 x10^3/uL (0.0-0.2) 0.1 x10^3/uL (0.0-0.2) Sodium Level 141 mmol/L (136-145) Potassium Level 3.5 mmol/L (3.5-5.1) Chloride Level 106 mmol/L (98-107) Carbon Dioxide Level 27 mmol/L (21-32) Anion Gap 8 (6-14) Blood Urea Nitrogen 15 mg/dL (7-20) Creatinine 1.2 mg/dL (0.6-1.0) Estimated GFR (Cockcroft-Gault) 47.9 BUN/Creatinine Ratio 13 (6-20) Glucose Level 117 mg/dL (70-99) Calcium Level 8.6 mg/dL (8.5-10.1) Phosphorus Level 3.5 mg/dL (2.6-4.7) Magnesium Level 2.3 mg/dL (1.8-2.4) Total Bilirubin 0.5 mg/dL (0.2-1.0) Aspartate Amino Transf (AST/SGOT) 32 U/L (15-37) Alanine Aminotransferase (ALT/SGPT) 52 U/L (14-59) Alkaline Phosphatase 101 U/L (46-116) Troponin I Quantitative 0.242 ng/mL (0.000-0.055) 0.225 ng/mL (0.000-0.055) EI-Szi-M-Type Natriuretic Peptide 34099 pg/mL (0-124) Total Protein 6.4 g/dL (6.4-8.2) Albumin 3.2 g/dL (3.4-5.0) Albumin/Globulin Ratio 1.0 (1.0-1.7) Urine Collection Type Unknown Urine Color Yellow Urine Clarity Turbid Urine pH 5.5 (<5.0-8.0) Urine Specific [place] 1.015 (1.000-1.030) Urine Protein 30 mg/dL (NEG-TRACE) Urine Glucose (UA) Negative mg/dL (NEG) Urine Ketones (Stick) Negative mg/dL (NEG) Urine Blood Moderate (NEG) Urine Nitrite Negative (NEG) Urine Bilirubin Negative (NEG) Urine Urobilinogen Dipstick 1.0 mg/dL (0.2 mg/dL) Urine Leukocyte Esterase Large (NEG) Urine RBC 11-20 /HPF (0-2) Urine WBC Tntc /HPF (0-4) Urine Squamous Epithelial Cells Mod /LPF Urine Bacteria Moderate /HPF (0-FEW) Urine Opiates Screen Neg (NEG) Urine Methadone Screen Neg (NEG) Urine Barbiturates Neg (NEG) Urine Phencyclidine Screen Neg (NEG) Urine Amphetamine/Methamphetamine Pos (NEG) Urine Benzodiazepines Screen Neg (NEG) Urine Cocaine Screen Pos (NEG) Urine Cannabinoids Screen Pos (NEG) Urine Ethyl Alcohol Neg (NEG) Test 10/03/20 05:25 Sodium Level 143 mmol/L (136-145) Potassium Level 3.4 mmol/L (3.5-5.1) Chloride Level 106 mmol/L (98-107) Carbon Dioxide Level 27 mmol/L (21-32) Anion Gap 10 (6-14) Blood Urea Nitrogen 15 mg/dL (7-20) Creatinine 1.2 mg/dL (0.6-1.0) Estimated GFR (Cockcroft-Gault) 47.9 Glucose Level 102 mg/dL (70-99) Calcium Level 8.4 mg/dL (8.5-10.1) Troponin I Quantitative 0.250 ng/mL (0.000-0.055) Laboratory Tests Test 10/02/20 22:31 10/02/20 23:42 10/03/20 02:40 10/03/20 05:10 White Blood Count 8.7 x10^3/uL (4.0-11.0) 8.3 x10^3/uL (4.0-11.0) Red Blood Count 4.05 x10^6/uL (3.50-5.40) 4.16 x10^6/uL (3.50-5.40) Hemoglobin 12.4 g/dL (12.0-15.5) 12.4 g/dL (12.0-15.5) Hematocrit 37.4 % (36.0-47.0) 38.4 % (36.0-47.0) Mean Corpuscular Volume 92 fL (79-100) 92 fL (79-100) Mean Corpuscular Hemoglobin 31 pg (25-35) 30 pg (25-35) Mean Corpuscular Hemoglobin Concent 33 g/dL (31-37) 32 g/dL (31-37) Red Cell Distribution Width 14.6 % (11.5-14.5) 14.9 % (11.5-14.5) Platelet Count 251 x10^3/uL (140-400) 242 x10^3/uL (140-400) Neutrophils (%) (Auto) 66 % (31-73) 69 % (31-73) Lymphocytes (%) (Auto) 25 % (24-48) 23 % (24-48) Monocytes (%) (Auto) 7 % (0-9) 7 % (0-9) Eosinophils (%) (Auto) 2 % (0-3) 1 % (0-3) Basophils (%) (Auto) 1 % (0-3) 1 % (0-3) Neutrophils # (Auto) 5.7 x10^3/uL (1.8-7.7) 5.7 x10^3/uL (1.8-7.7) Lymphocytes # (Auto) 2.2 x10^3/uL (1.0-4.8) 1.9 x10^3/uL (1.0-4.8) Monocytes # (Auto) 0.6 x10^3/uL (0.0-1.1) 0.6 x10^3/uL (0.0-1.1) Eosinophils # (Auto) 0.1 x10^3/uL (0.0-0.7) 0.1 x10^3/uL (0.0-0.7) Basophils # (Auto) 0.0 x10^3/uL (0.0-0.2) 0.1 x10^3/uL (0.0-0.2) Sodium Level 141 mmol/L (136-145) Potassium Level 3.5 mmol/L (3.5-5.1) Chloride Level 106 mmol/L (98-107) Carbon Dioxide Level 27 mmol/L (21-32) Anion Gap 8 (6-14) Blood Urea Nitrogen 15 mg/dL (7-20) Creatinine 1.2 mg/dL (0.6-1.0) Estimated GFR (Cockcroft-Gault) 47.9 BUN/Creatinine Ratio 13 (6-20) Glucose Level 117 mg/dL (70-99) Calcium Level 8.6 mg/dL (8.5-10.1) Phosphorus Level 3.5 mg/dL (2.6-4.7) Magnesium Level 2.3 mg/dL (1.8-2.4) Total Bilirubin 0.5 mg/dL (0.2-1.0) Aspartate Amino Transf (AST/SGOT) 32 U/L (15-37) Alanine Aminotransferase (ALT/SGPT) 52 U/L (14-59) Alkaline Phosphatase 101 U/L (46-116) Troponin I Quantitative 0.242 ng/mL (0.000-0.055) 0.225 ng/mL (0.000-0.055) TC-Tjl-G-Type Natriuretic Peptide 18320 pg/mL (0-124) Total Protein 6.4 g/dL (6.4-8.2) Albumin 3.2 g/dL (3.4-5.0) Albumin/Globulin Ratio 1.0 (1.0-1.7) Urine Collection Type Unknown Urine Color Yellow Urine Clarity Turbid Urine pH 5.5 (<5.0-8.0) Urine Specific [place] 1.015 (1.000-1.030) Urine Protein 30 mg/dL (NEG-TRACE) Urine Glucose (UA) Negative mg/dL (NEG) Urine Ketones (Stick) Negative mg/dL (NEG) Urine Blood Moderate (NEG) Urine Nitrite Negative (NEG) Urine Bilirubin Negative (NEG) Urine Urobilinogen Dipstick 1.0 mg/dL (0.2 mg/dL) Urine Leukocyte Esterase Large (NEG) Urine RBC 11-20 /HPF (0-2) Urine WBC Tntc /HPF (0-4) Urine Squamous Epithelial Cells Mod /LPF Urine Bacteria Moderate /HPF (0-FEW) Urine Opiates Screen Neg (NEG) Urine Methadone Screen Neg (NEG) Urine Barbiturates Neg (NEG) Urine Phencyclidine Screen Neg (NEG) Urine Amphetamine/Methamphetamine Pos (NEG) Urine Benzodiazepines Screen Neg (NEG) Urine Cocaine Screen Pos (NEG) Urine Cannabinoids Screen Pos (NEG) Urine Ethyl Alcohol Neg (NEG) Test 10/03/20 05:25 Sodium Level 143 mmol/L (136-145) Potassium Level 3.4 mmol/L (3.5-5.1) Chloride Level 106 mmol/L (98-107) Carbon Dioxide Level 27 mmol/L (21-32) Anion Gap 10 (6-14) Blood Urea Nitrogen 15 mg/dL (7-20) Creatinine 1.2 mg/dL (0.6-1.0) Estimated GFR (Cockcroft-Gault) 47.9 Glucose Level 102 mg/dL (70-99) Calcium Level 8.4 mg/dL (8.5-10.1) Troponin I Quantitative 0.250 ng/mL (0.000-0.055) Brief Hospital Course HPI from admission Patient is a 49-year-old white female presented to the emergency room complaining of chest pain and shortness of breath. Patient recently discharged on September 26 when she left AMA. She was admitted for that admission on the second complaining of chest pain and shortness of breath as well. She had a cardiac cath during that admission and was found to have chronic diastolic heart failure and mild CAD. Before she was discharged she left AMA thus she never went to pick up man her outpatient cardiac medications. She returned overnight she was experiencing the same symptoms that brought her to the ER on the first visit. Other than a very mild troponin bump which is likely still secondary to her hypertension when she presented lab work-up relatively unremarkable. BNP was elevated in light of her heart failure. The time I was able to evaluate the patient she reported being overall symptom free. Patient was evaluated by cardiology who recommended she restart amlodipine and Imdur as an outpatient for blood pressure. If you would stay in house and perform an echo tomorrow however patient is eager to leave on October 03. Patient was discharged home. She was also started on amlodipine and Symbicort for her COPD. I saw and evaluated the patient on day of discharge Discharge Information Condition at Discharge: Improved Disposition/Orders: D/C to Home Scheduled Amlodipine Besylate (Norvasc) 5 Mg Tablet, 1 TAB PO DAILY for htn for 90 Days, #90 Ref 1 Prescribed by: ARELIS QUINTERO MD on 10/03/20 1307 Budesonide/Formoterol Fumarate (Symbicort 160-4.5 Mcg Inhaler) 10.2 Gm Hfa.aer.ad, 2 PUFF IH BID for copd for 30 Days, #1 Ref 3 Prescribed by: ARELIS QUINTERO MD on 10/03/20 1345 Duloxetine Hcl (Cymbalta) 60 Mg Capsule.dr, 1 CAP PO DAILY for depression/anxiety, #90 Ref 3 (Reported) Entered as Reported by: ABRAHAN CAMACHO on 09/25/20 1504 Isosorbide Mononitrate (Isosorbide Mononitrate Er) 30 Mg Tab.er.24h, 1 TAB PO DAILY for htn for 90 Days, #90 Ref 1 Prescribed by: ARELIS QUINTERO MD on 10/03/20 1308 Sulfamethoxazole/Trimethoprim (Bactrim Ds Tablet) 1 Each Tablet, 1 TAB PO BID, #20 Prescribed by: Delaney Isaacs APRN on 11/16/18 1427 Scheduled PRN Albuterol Sulfate (Proair Hfa Inhaler) 8.5 Gm Hfa.aer.ad, 1 PUFF INH PRN Q6HRS PRN for SHORTNESS OF BREATH for 60 Days, #1 Ref 1 Prescribed by: ARELIS QUINTERO MD on 10/03/20 1344 Justicifation of Admission Dx: Justifications for Admission: Justification of Admission Dx: N/A ARELIS QUINTERO MD Oct 03, 2020 13:48
[2020-10-03 15:00] VITALS: BP 149/70
--- NOTE | 2020-10-03 17:08 | NUR ---
Discharge Note: ARAVIND CAR Discharge instructions and discharge home medications reviewed with Patient and a copy given. All questions have been answered and understanding verbalized. The following instructions and handouts were given: Patient given education regarding follow ups and medication. Discontinued lines and drains: Iv was removed. Patient discharged home, picked up by daughter.
== END 2020-10-03 17:00 | disposition home or self-care (01) | DRG 293 ==
LOC: ER 22:02 → ED HOLD 23:46 → 2 SOUTH 10-03 00:31
PROVIDERS: ADMIT Family Medicine; ATTEND Family Medicine
DX: I11.0 Hypertensive heart disease with heart failure (principal); F32.9 Major depressive disorder, single episode, unspecified; I50.33 Acute on chronic diastolic (congestive) heart failure; F17.210 Nicotine dependence, cigarettes, uncomplicated; I25.10 Atherosclerotic heart disease of native coronary artery without angina pectoris; Z79.51 Long term (current) use of inhaled steroids; Z79.899 Other long term (current) drug therapy; J44.9 Chronic obstructive pulmonary disease, unspecified; R09.02 Hypoxemia; Z83.3 Family history of diabetes mellitus; Z90.710 Acquired absence of both cervix and uterus; F19.10 Other psychoactive substance abuse, uncomplicated
CPT/HCPCS: 36415; 71045; 80048; 80053; 80307; 81001; 83735; 83880; 84100; 84484; 85025; 87086; 93005; 94640; 94760; 96374; J1940; J2270; 99285-25

== ENCOUNTER 2020-10-07 08:40 | Inpatient (IN) | payer MEDICAID ==
[~2020-10-07] VITALS: Ht 172.7 cm; Wt 107.2 kg
[~2020-10-07 08:40] MED LIST changes: +ALBU2.5V8 INH; +AMLO5TAB4 PO; +BUDE10.2 IH; +DULO60CA6 PO; -DULO60CA7 PO; +ISOS30TA68 PO
--- NOTE | 2020-10-07 09:28 | EKG ---
[facility] [address] [place] [address] Test Date: 2020-10-07 Test Time: 09:01:10 Pat Name: VANESSA CAR Department: Room: Gender: F Line Assigner: : 1970 Requested By: KYAW MEZA Order Number: [id number] Reading MD: Measurements Intervals [place] Rate: 100 P: -127 PA: 96 QRS: 21 QRSD: 148 T: 176 QT: 392 QTc: 509 Interpretive Statements SUPRAVENTRICULAR RHYTHM NON SPECIFIC INTRAVENTRICULAR BLOCK QRS(T) CONTOUR ABNORMALITY CONSIDER ANTEROSEPTAL MYOCARDIAL DAMAGE ABNORMAL ECG RI6.01 No previous ECG available for comparison
[2020-10-07 09:45] LABS: BASO # 0.1 x10^3/uL (0.0-0.2); BASO % 1 % (0-3); EOS # 0.1 x10^3/uL (0.0-0.7); EOS % 1 % (0-3); HEMOGLOBIN 12.2 g/dL (12.0-15.5); LYMPH # 1.6 x10^3/uL (1.0-4.8); LYMPH % 15 % (24-48); MEAN CORPUSCULAR HEMOGLOBIN 31 pg (25-35); MEAN CORPUSCULAR HGB CONC 33 g/dL (31-37); MEAN CORPUSCULAR VOLUME 92 fL (79-100); MONO # 0.6 x10^3/uL (0.0-1.1); MONO % 5 % (0-9); NEUT # 8.5 x10^3/uL (1.8-7.7); NEUT % 79 % (31-73); PLATELET COUNT 257 x10^3/uL (140-400); RED CELL DISTRIBUTION WIDTH 15.4 % (11.5-14.5); WHITE BLOOD COUNT 10.9 x10^3/uL (4.0-11.0)
--- NOTE | 2020-10-07 09:59 | RAD ---
EXAM: XR CHEST 1V 10/07/2020 9:17 AM CLINICAL INDICATION: Shortness of breath COMPARISON: Chest radiograph 10/02/2020 TECHNIQUE: AP view of the chest FINDINGS: Cardiomegaly and interstitial opacities with hazy opacities in the lung bases are unchange d allowing for differences in technique. No pneumothorax. No acute osseous abnormality. IMPRESSION: No significant change in cardiomegaly with mild pulmonary edema and small pleural effusi ons. Electronically signed by: Ana Cerna MD (10/07/2020 9:56 AM) [id number]
[2020-10-07] MEDS ORDERED: FUROSEMIDE 40 MG/4 ML VIAL. IVP ONE (10:00)
[2020-10-07 10:05] LABS: CALCIUM 8.9 mg/dL (8.5-10.1); CREATININE 0.9 mg/dL (0.6-1.0); GFR 66.8; POTASSIUM 3.9 mmol/L (3.5-5.1)
[2020-10-07 10:11] LABS: ALBUMIN 3.1 g/dL (3.4-5.0); ALBUMIN/GLOBULIN RATIO 0.9 (1.0-1.7); MAGNESIUM 2.2 mg/dL (1.8-2.4); TOTAL BILIRUBIN 0.6 mg/dL (0.2-1.0); TOTAL PROTEIN 6.7 g/dL (6.4-8.2)
--- NOTE | 2020-10-07 11:19 | PHYS DOC ---
Past Medical History Past Medical History: Depression Additional Past Medical Histor: CHRONIC BACK PAIN,CHRONIC NERVE PAIN Past Surgical History: Hysterectomy, Other Additional Past Surgical Histo: back surgery Smoking Status: Current Every Day Smoker Alcohol Use: None Drug Use: Cocaine General Adult EDM: Chief Complaint: SHORTNESS OF BREATH HPI: HPI: Patient is a 49 year old female who present to ER for evaluation of chest pain or trouble breathing. Patient was at admitted here on September 25, had cardiac catheterization done which show she had now vessel disease, she also had hypertension, tested positive for methamphetamine and cocaine. Patient was unable be prescribed some medication for her condition and high blood pressure, she was not having echocardiogram of her heart however she signed out against medical advice. Patient was then came back here on October 02 for the same problem, dump truck operator evaluated her and was going to do an echocardiogram on October 03 however patient left again. Patient denies that she went home and do anymore methamphetamine or cocaine. Patient is having chest pain and trouble breathing with exertion patient denies any cough or fever. sHe is currently not on any medication Review of Systems: Review of Systems: Constitutional: Denies fever or chills. [] Eyes: Denies change in visual acuity. [] HENT: Denies nasal congestion or sore throat. [] Respiratory: Positive for nonproductive cough and trouble breathing Cardiovascular: Positive for chest pain, no GI: Denies abdominal pain, nausea, vomiting, bloody stools or diarrhea. [] : Denies dysuria. [] Musculoskeletal: Denies back pain or joint pain. [] Integument: Denies rash. [] Neurologic: Denies headache, focal weakness or sensory changes. [] Endocrine: Denies polyuria or polydipsia. [] Lymphatic: Denies swollen glands. [] Psychiatric: Denies depression or anxiety. [] Heart Score: C/O Chest Pain: Yes HEART Score for Chest Pain: HEART Score for Chest Pain Response (Comments) Value History Moderately Suspicious 1 ECG Nonspecific Repolarizatio 1 Age >45 - < 65 1 Risk Factors >3 Risk Factors or Hx CAD 2 Troponin >1-<3x Normal Limit 1 Total 6 Risk Factors: Risk Factors: DM, Current or recent (<one month) smoker, HTN, HLP, family history of CAD, obesity. Risk Scores: Score 0 - 3: 2.5% MACE over next 6 weeks - Discharge Home Score 4 - 6: 20.3% MACE over next 6 weeks - Admit for Clinical Observation Score 7 - 10: 72.7% MACE over next 6 weeks - Early Invasive Strategies Current Medications: Current Medications Medications (Trade) Dose Ordered Sig/Chandra Start Time Stop Time Status Last Admin Dose Admin Furosemide (Lasix) 40 mg 1X ONCE 10/07/20 10:00 10/07/20 10:03 DC 10/07/20 10:40 40 MG Allergies: Allergies: Allergies Coded Allergies Type Severity Reaction Last Updated Verified No Known Drug Allergies 08/17/13 No Physical Exam: PE: Constitutional: Well developed, well nourished, no acute distress, non-toxic appearance. [] HENT: Normocephalic, atraumatic, bilateral external ears normal, oropharynx moist, no oral exudates, nose normal. [] Eyes: PERRLA, EOMI, conjunctiva normal, no discharge. [] Neck: Normal range of motion, no tenderness, supple, no stridor. [] Cardiovascular:Heart rate regular rhythm, no murmur [] Lungs & Thorax: Bilateral breath sounds with crackles and rales diffusedly to auscultation [] Abdomen: Bowel sounds normal, soft, no tenderness, no masses, no pulsatile masses. [] Skin: Warm, dry, no erythema, no rash. [] Back: No tenderness, no CVA tenderness. [] Extremities: No tenderness, no cyanosis, no clubbing, ROM intact, no edema. [] Neurologic: Alert and oriented X 3, normal motor function, normal sensory function, no focal deficits noted. [] Psychologic: Affect normal, judgement normal, mood normal. [] Current Patient Data: Labs: Laboratory Tests Test 10/07/20 09:36 10/07/20 09:47 White Blood Count 10.9 x10^3/uL Red Blood Count 4.00 x10^6/uL Hemoglobin 12.2 g/dL Hematocrit 37.0 % Mean Corpuscular Volume 92 fL Mean Corpuscular Hemoglobin 31 pg Mean Corpuscular Hemoglobin Concent 33 g/dL Red Cell Distribution Width 15.4 % Platelet Count 257 x10^3/uL Neutrophils (%) (Auto) 79 % Lymphocytes (%) (Auto) 15 % Monocytes (%) (Auto) 5 % Eosinophils (%) (Auto) 1 % Basophils (%) (Auto) 1 % Neutrophils # (Auto) 8.5 x10^3/uL Lymphocytes # (Auto) 1.6 x10^3/uL Monocytes # (Auto) 0.6 x10^3/uL Eosinophils # (Auto) 0.1 x10^3/uL Basophils # (Auto) 0.1 x10^3/uL Sodium Level 144 mmol/L Potassium Level 3.9 mmol/L Chloride Level 108 mmol/L Carbon Dioxide Level 26 mmol/L Anion Gap 10 Blood Urea Nitrogen 18 mg/dL Creatinine 0.9 mg/dL Estimated GFR (Cockcroft-Gault) 66.8 BUN/Creatinine Ratio 20 Glucose Level 117 mg/dL Calcium Level 8.9 mg/dL Magnesium Level 2.2 mg/dL Total Bilirubin 0.6 mg/dL Aspartate Amino Transf (AST/SGOT) 26 U/L Alanine Aminotransferase (ALT/SGPT) 39 U/L Alkaline Phosphatase 88 U/L Troponin I Quantitative 0.190 ng/mL KN-[id number]-K-Type Natriuretic Peptide 70762 pg/mL Total Protein 6.7 g/dL Albumin 3.1 g/dL Albumin/Globulin Ratio 0.9 Current Medications Medications (Trade) Dose Ordered Sig/Chandra Route PRN Reason Start Time Stop Time Status Last Admin Dose Admin Furosemide (Lasix) 40 mg 1X ONCE IVP 10/07/20 10:00 10/07/20 10:03 DC 10/07/20 10:40 Laboratory Tests Test 10/07/20 09:36 10/07/20 09:47 White Blood Count 10.9 x10^3/uL (4.0-11.0) Red Blood Count 4.00 x10^6/uL (3.50-5.40) Hemoglobin 12.2 g/dL (12.0-15.5) Hematocrit 37.0 % (36.0-47.0) Mean Corpuscular Volume 92 fL (79-100) Mean Corpuscular Hemoglobin 31 pg (25-35) Mean Corpuscular Hemoglobin Concent 33 g/dL (31-37) Red Cell Distribution Width 15.4 % (11.5-14.5) H Platelet Count 257 x10^3/uL (140-400) Neutrophils (%) (Auto) 79 % (31-73) H Lymphocytes (%) (Auto) 15 % (24-48) L Monocytes (%) (Auto) 5 % (0-9) Eosinophils (%) (Auto) 1 % (0-3) Basophils (%) (Auto) 1 % (0-3) Neutrophils # (Auto) 8.5 x10^3/uL (1.8-7.7) H Lymphocytes # (Auto) 1.6 x10^3/uL (1.0-4.8) Monocytes # (Auto) 0.6 x10^3/uL (0.0-1.1) Eosinophils # (Auto) 0.1 x10^3/uL (0.0-0.7) Basophils # (Auto) 0.1 x10^3/uL (0.0-0.2) Sodium Level 144 mmol/L (136-145) Potassium Level 3.9 mmol/L (3.5-5.1) Chloride Level 108 mmol/L (98-107) H Carbon Dioxide Level 26 mmol/L (21-32) Anion Gap 10 (6-14) Blood Urea Nitrogen 18 mg/dL (7-20) Creatinine 0.9 mg/dL (0.6-1.0) Estimated GFR (Cockcroft-Gault) 66.8 BUN/Creatinine Ratio 20 (6-20) Glucose Level 117 mg/dL (70-99) H Calcium Level 8.9 mg/dL (8.5-10.1) Magnesium Level 2.2 mg/dL (1.8-2.4) Total Bilirubin 0.6 mg/dL (0.2-1.0) Aspartate Amino Transferase (AST) 26 U/L (15-37) Alanine Aminotransferase (ALT) 39 U/L (14-59) Alkaline Phosphatase 88 U/L (46-116) Troponin I Quantitative 0.190 ng/mL (0.000-0.055) FF-Xna-Q-Type Natriuretic Peptide 03799 pg/mL (0-124) H Total Protein 6.7 g/dL (6.4-8.2) Albumin 3.1 g/dL (3.4-5.0) L Albumin/Globulin Ratio 0.9 (1.0-1.7) L Laboratory Tests 10/07/20 09:36 Laboratory Tests 10/07/20 09:47 Vital Signs: Vital Signs Date Time Temp Pulse Resp B/P (MAP) Pulse Ox O2 Delivery O2 Flow Rate FiO2 10/07/20 08:44 98.4 98 20 148/93 (96) 97 Room Air 98.4 EKG: EKG: EKG was done at 901, heart rate of 100 bpm, left bundle branch block, no ST segment ovation. Radiology/Procedures: Radiology/Procedures: [][facility] [address] [place] [address] IMAGING REPORT Signed PATIENT: VANESSA CAR ACCOUNT: [id number] : 1970 LOCATION: ER AGE: 49 SEX: F EXAM STATUS: REG ER ORD. PHYSICIAN: KYAW MEZA DO REASON: soa PROCEDURE: PORTABLE CHEST 1V EXAM: XR CHEST 1V 10/07/2020 9:17 AM CLINICAL INDICATION: Shortness of breath COMPARISON: Chest radiograph 10/02/2020 TECHNIQUE: AP view of the chest FINDINGS: Cardiomegaly and interstitial opacities with hazy opacities in the lung bases are unchanged allowing for differences in technique. No pneumothorax. No acute osseous abnormality. IMPRESSION: No significant change in cardiomegaly with mild pulmonary edema and small pleural effusions. Electronically signed by: Ana Cerna MD (10/07/2020 9:56 AM) [id number] DICTATED and SIGNED BY: ANA CERNA MD DATE: 10/07/20 [id number] Course & Med Decision Making: Course & Med Decision Making Pertinent Labs and Imaging studies reviewed. (See chart for details) Patient is a 49-year-old female who present to ER due to chest pain and trouble breathing. Patient cardiac enzyme is slightly elevated, proBNP elevated as well. Patient will need to be admitted to hospital for further evaluation treatment Dragon Disclaimer: Dragon Disclaimer: This electronic medical record was generated, in whole or in part, using a voice recognition dictation system. Departure Departure Impression: Primary Impression: Chest pain Additional Impressions: CHF (congestive heart failure) Hypertension Disposition: ADMITTED INPATIENT Admitting Physician: COLTON (Dr. chopra) Condition: IMPROVED Referrals: NO PCP (PCP) KYAW MEZA DO Oct 07, 2020 11:19
[2020-10-07 12:07] LABS: BILIRUBIN,URINE NEGATIVE (NEG); CLARITY,URINE CLEAR; COLOR,URINE YELLOW; NITRITE,URINE NEGATIVE (NEG); PROTEIN,URINE NEGATIVE (NEG-TRACE); UROBILINOGEN,URINE 0.2 mg/dL (0.2 mg/dL)
[2020-10-07 12:14] LABS: BARBITURATES NEG (NEG); BENZODIAZEPINES NEG (NEG); CANNABINOIDS NEG (NEG); COCAINE NEG (NEG); METHADONE NEG (NEG); OPIATES NEG (NEG); PHENCYCLIDINE NEG (NEG)
[2020-10-07 12:15] LABS: AMPHETAMINE/METHAMPHETAMINE NEG (NEG)
[2020-10-07] MEDS ORDERED: ONDANSETRON PF 4 MG/2 ML VIAL. IVP PRN (12:15)
[2020-10-07] MEDS ORDERED: ACETAMINOPHEN 325 MG TABLET. PO PRN (12:15)
[2020-10-07] MEDS ORDERED: DOCUSATE SODIUM 100 MG CAPSULE. PO PRN (12:15)
[2020-10-07] MEDS ORDERED: SENNOSIDES 8.6 MG TABLET PO PRN (12:15)
[2020-10-07] MEDS ORDERED: DEXTROSE 50% 25 GM / 50ML DISP.SYRIN. IV PRN (12:15)
[2020-10-07 12:16] LABS: BACTERIA,URINE 0 /HPF (0-FEW); RBC,URINE OCC /HPF (0-2); WBC,URINE OCC /HPF (0-4)
[2020-10-07] MEDS: ENOXAPARIN 40 MG/0.4 ML SYRINGE. SQ SCH (15:25)
[2020-10-07] MEDS: ASPIRIN ENTERIC COATED 81 MG TABLET.DR. PO SCH (15:25)
[2020-10-07] MEDS: THIAMINE INJ 100 MG in IV DEXTROSE 5% 50 ML IV SCH (15:26)
[2020-10-07 19:50] VITALS: BP 130/94
[2020-10-07] MEDS: MORPHINE SULFATE 2 MG/ML INJ. IVP PRN (20:55)
[2020-10-07] MEDS ORDERED: ALBUTEROL SULFATE 2.5 MG/3 ML NEBU. INH PRN (21:15)
[2020-10-07] MEDS: DULoxetine HCL 30 MG CAPSULE.DR PO SCH (21:26)
--- NOTE | 2020-10-07 21:41 | PDOC1 ---
History and Physical Date of Service: DOS: DATE: 10/07/20 TIME: 21:35 Chief Complaint: Chief Complain: chest pain History of Present Illness: HPI: 49 year old female who present to ER for evaluation of chest pain or trouble breathing. Patient was at admitted here on September 25, had cardiac catheterization done which show she had now vessel disease, she also had hypertension, tested positive for methamphetamine and cocaine. Patient was unable be prescribed some medication for her condition and high blood pressure, she was not having echocardiogram of her heart however she signed out AMA. Patient was then came back here on October 02 for the same problem, office lead evaluated her and was going to do an echocardiogram on October 03 however patient left AMA again. Patient is having chest pain and trouble breathing with exertion patient denies any cough or fever. sHe is currently not on any medication Past Medical/Surgical History: PMH/PSH: Past Medical History: Depression, CHRONIC BACK PAIN,CHRONIC NERVE PAIN Past Surgical History: Hysterectomy, back surgery Allergies: Allergies: Coded Allergies: No Known Drug Allergies (Unverified , 08/17/13) Family History: Family History: Reviewed with no relevant findings Social History: Social History: Smoking Status: Current Every Day Smoker Alcohol Use: None Drug Use: Cocaine Current Medications: Current Medications Current Medications Furosemide (Lasix) 40 mg 1X ONCE IVP Last administered on 10/07/20at 10:40; Start 10/07/20 at 10:00; Stop 10/07/20 at 10:03; Status DC Sennosides (Senna) 17.2 mg PRN BID PRN PO CONSTIPATION; Start 10/07/20 at 12:15 Docusate Sodium (Colace) 100 mg PRN DAILY PRN PO HARD STOOLS; Start 10/07/20 at 12:15 Thiamine HCl 100 mg/Dextrose 51 ml @ 102 mls/hr DAILY IV Last administered on 10/07/20at 15:26; Start 10/07/20 at 13:00 Ondansetron HCl (Zofran) 4 mg PRN Q6HRS PRN IVP NAUSEA/VOMITING; Start 10/07/20 at 12:15 Aspirin (Ecotrin) 81 mg DAILYWBKFT PO Last administered on 10/07/20at 15:25; Start 10/07/20 at 13:00 Dextrose (Dextrose 50%-Water Syringe) 12.5 gm PRN Q15MIN PRN IV SEE COMMENTS; Start 10/07/20 at 12:15 Acetaminophen (Tylenol) 650 mg PRN Q4HRS PRN PO TEMP OVER 100.4F OR MILD PAIN; Start 10/07/20 at 12:15 Enoxaparin Sodium (Lovenox 40mg Syringe) 40 mg Q24H SQ Last administered on 10/07/20at 15:25; Start 10/07/20 at 13:00 Morphine Sulfate (Morphine Sulfate) 1 mg PRN Q1HR PRN IV PAIN-SEE COMMENTS; Start 10/07/20 at 12:15 Morphine Sulfate (Morphine Sulfate) 2 mg PRN Q2HR PRN IVP SEVERE PAIN 7-10 Last administered on 10/07/20at 20:55; Start 10/07/20 at 12:15; Stop 10/08/20 at 12:14 Albuterol Sulfate (Ventolin Neb Soln) 2.5 mg PRN Q6HRS PRN INH SHORTNESS OF BREATH; Start 10/07/20 at 21:15 Amlodipine Besylate (Norvasc) 5 mg DAILY PO ; Start 10/08/20 at 09:00 Isosorbide Mononitrate (Imdur) 30 mg DAILY PO ; Start 10/08/20 at 09:00 Budesonide (Pulmicort) 0.5 mg RTBID NEB ; Start 10/08/20 at 08:00 Duloxetine HCl (Cymbalta) 60 mg HS PO Last administered on 10/07/20at 21:26; Start 10/07/20 at 22:00 Albuterol Sulfate (Ventolin Neb Soln) 2.5 mg RTQID NEB ; Start 10/08/20 at 08:00 Active Scripts Active Symbicort 160-4.5 Mcg Inhaler (Budesonide/Formoterol Fumarate) 10.2 Gm Hfa.aer.ad 2 Puff IH BID 30 Days Proair Hfa Inhaler (Albuterol Sulfate) 8.5 Gm Hfa.aer.ad 1 Puff INH PRN Q6HRS PRN 60 Days Isosorbide Mononitrate Er (Isosorbide Mononitrate) 30 Mg Tab.er.24h 1 Tab PO DAILY 90 Days Norvasc (Amlodipine Besylate) 5 Mg Tablet 1 Tab PO DAILY 90 Days Reported Cymbalta (Duloxetine Hcl) 60 Mg Capsule. 1 Cap PO HS ROS: Review of Systems Review of System REVIEW OF SYSTEMS: GENERAL: Denies weakness SKIN: No bruising, hair changes or rashes. EYES: No blurred, double or loss of vision. NOSE AND THROAT: No history of nosebleeds, hoarseness or sore throat. HEART: No history of palpitations, chest pain or shortness of breath on exertion. LUNGS: Denies cough, hemoptysis, wheezing or shortness of breath. GASTROINTESTINAL: Denies changes in appetite, nausea, vomiting, diarrhea or constipation. GENITOURINARY: No history of frequency, urgency, hesitancy or nocturia. NEUROLOGIC: Denies history of numbness, tingling, or tremor. PSYCHIATRIC: No history of panic, anxiety or depression. ENDOCRINE: No history of heat or cold intolerance, polyuria or polydipsia. EXTREMITIES: Denies joint pain, pain on walking or stiffness. Physical Exam: Vital Signs: Vital Signs Date Time Temp Pulse Resp B/P (MAP) Pulse Ox O2 Delivery O2 Flow Rate FiO2 10/07/20 19:50 98.1 104 19 130/94 (106) 96 Room Air 98.1 Physcial Exam: GEN: No apparent distress. Alert and oriented HEENT: Normal cephalic, atraumatic, external auditory canals are patent EYES: Extraocular muscles are intact, pupil are equally round and reactive to light and accommodation MUSCULOSKELETAL: Well developed , well nourished, good range of motion ENDOCRINE: No thyromegaly was palpated LYMPHATICS: No cervical chain or axillary nodes were noted HEMATOPOIETIC: No bruising NECK: Supple, no JVD, no thyromegaly was noted LUNGS: Clear to auscultation in all lung melton without rhonchi or wheezing HEART: RRR, S!, S2 present. Peripheral pulses intact, no obvious murmurs n oted ABDOMEN: Soft, nontender. Positive bowel sounds, no organomegaly, normal bowel sounds EXTREMITIES: Without clubbing, cyanosis, or edema. Pedal pulses intact. Negative Homans sign NEUROLOGIC: Normal speech and tone. A&O x 3, moves all extremities, no obvious focal deficits PSYCHIATRIC: Normal affect, normal mood. Stable SKIN: No ulcerations or rashes, good skin turgor, no jaundice VASCULAR: Good capillary refill, neurovascular bundle appears to be intact Labs: Labs: Laboratory Tests Test 10/07/20 09:36 10/07/20 09:47 10/07/20 11:55 White Blood Count 10.9 x10^3/uL (4.0-11.0) Red Blood Count 4.00 x10^6/uL (3.50-5.40) Hemoglobin 12.2 g/dL (12.0-15.5) Hematocrit 37.0 % (36.0-47.0) Mean Corpuscular Volume 92 fL (79-100) Mean Corpuscular Hemoglobin 31 pg (25-35) Mean Corpuscular Hemoglobin Concent 33 g/dL (31-37) Red Cell Distribution Width 15.4 % (11.5-14.5) Platelet Count 257 x10^3/uL (140-400) Neutrophils (%) (Auto) 79 % (31-73) Lymphocytes (%) (Auto) 15 % (24-48) Monocytes (%) (Auto) 5 % (0-9) Eosinophils (%) (Auto) 1 % (0-3) Basophils (%) (Auto) 1 % (0-3) Neutrophils # (Auto) 8.5 x10^3/uL (1.8-7.7) Lymphocytes # (Auto) 1.6 x10^3/uL (1.0-4.8) Monocytes # (Auto) 0.6 x10^3/uL (0.0-1.1) Eosinophils # (Auto) 0.1 x10^3/uL (0.0-0.7) Basophils # (Auto) 0.1 x10^3/uL (0.0-0.2) Sodium Level 144 mmol/L (136-145) Potassium Level 3.9 mmol/L (3.5-5.1) Chloride Level 108 mmol/L (98-107) Carbon Dioxide Level 26 mmol/L (21-32) Anion Gap 10 (6-14) Blood Urea Nitrogen 18 mg/dL (7-20) Creatinine 0.9 mg/dL (0.6-1.0) Estimated GFR (Cockcroft-Gault) 66.8 BUN/Creatinine Ratio 20 (6-20) Glucose Level 117 mg/dL (70-99) Calcium Level 8.9 mg/dL (8.5-10.1) Magnesium Level 2.2 mg/dL (1.8-2.4) Total Bilirubin 0.6 mg/dL (0.2-1.0) Aspartate Amino Transf (AST/SGOT) 26 U/L (15-37) Alanine Aminotransferase (ALT/SGPT) 39 U/L (14-59) Alkaline Phosphatase 88 U/L (46-116) Troponin I Quantitative 0.190 ng/mL (0.000-0.055) SH-Nmd-C-Type Natriuretic Peptide 56208 pg/mL (0-124) Total Protein 6.7 g/dL (6.4-8.2) Albumin 3.1 g/dL (3.4-5.0) Albumin/Globulin Ratio 0.9 (1.0-1.7) Urine Collection Type Void Urine Color Yellow Urine Clarity Clear Urine pH 7.0 (<5.0-8.0) Urine Specific [place] <=1.005 (1.000-1.030) Urine Protein Negative mg/dL (NEG-TRACE) Urine Glucose (UA) Negative mg/dL (NEG) Urine Ketones (Stick) Negative mg/dL (NEG) Urine Blood Negative (NEG) Urine Nitrite Negative (NEG) Urine Bilirubin Negative (NEG) Urine Urobilinogen Dipstick 0.2 mg/dL (0.2 mg/dL) Urine Leukocyte Esterase Negative (NEG) Urine RBC Occ /HPF (0-2) Urine WBC Occ /HPF (0-4) Urine Squamous Epithelial Cells Mod /LPF Urine Bacteria 0 /HPF (0-FEW) Urine Opiates Screen Neg (NEG) Urine Methadone Screen Neg (NEG) Urine Barbiturates Neg (NEG) Urine Phencyclidine Screen Neg (NEG) Urine Amphetamine/Methamphetamine Neg (NEG) Urine Benzodiazepines Screen Neg (NEG) Urine Cocaine Screen Neg (NEG) Urine Cannabinoids Screen Neg (NEG) Urine Ethyl Alcohol Neg (NEG) Laboratory Tests Test 10/07/20 09:36 10/07/20 09:47 10/07/20 11:55 White Blood Count 10.9 x10^3/uL (4.0-11.0) Red Blood Count 4.00 x10^6/uL (3.50-5.40) Hemoglobin 12.2 g/dL (12.0-15.5) Hematocrit 37.0 % (36.0-47.0) Mean Corpuscular Volume 92 fL (79-100) Mean Corpuscular Hemoglobin 31 pg (25-35) Mean Corpuscular Hemoglobin Concent 33 g/dL (31-37) Red Cell Distribution Width 15.4 % (11.5-14.5) Platelet Count 257 x10^3/uL (140-400) Neutrophils (%) (Auto) 79 % (31-73) Lymphocytes (%) (Auto) 15 % (24-48) Monocytes (%) (Auto) 5 % (0-9) Eosinophils (%) (Auto) 1 % (0-3) Basophils (%) (Auto) 1 % (0-3) Neutrophils # (Auto) 8.5 x10^3/uL (1.8-7.7) Lymphocytes # (Auto) 1.6 x10^3/uL (1.0-4.8) Monocytes # (Auto) 0.6 x10^3/uL (0.0-1.1) Eosinophils # (Auto) 0.1 x10^3/uL (0.0-0.7) Basophils # (Auto) 0.1 x10^3/uL (0.0-0.2) Sodium Level 144 mmol/L (136-145) Potassium Level 3.9 mmol/L (3.5-5.1) Chloride Level 108 mmol/L (98-107) Carbon Dioxide Level 26 mmol/L (21-32) Anion Gap 10 (6-14) Blood Urea Nitrogen 18 mg/dL (7-20) Creatinine 0.9 mg/dL (0.6-1.0) Estimated GFR (Cockcroft-Gault) 66.8 BUN/Creatinine Ratio 20 (6-20) Glucose Level 117 mg/dL (70-99) Calcium Level 8.9 mg/dL (8.5-10.1) Magnesium Level 2.2 mg/dL (1.8-2.4) Total Bilirubin 0.6 mg/dL (0.2-1.0) Aspartate Amino Transf (AST/SGOT) 26 U/L (15-37) Alanine Aminotransferase (ALT/SGPT) 39 U/L (14-59) Alkaline Phosphatase 88 U/L (46-116) Troponin I Quantitative 0.190 ng/mL (0.000-0.055) PI-Nnx-A-Type Natriuretic Peptide 03748 pg/mL (0-124) Total Protein 6.7 g/dL (6.4-8.2) Albumin 3.1 g/dL (3.4-5.0) Albumin/Globulin Ratio 0.9 (1.0-1.7) Urine Collection Type Void Urine Color Yellow Urine Clarity Clear Urine pH 7.0 (<5.0-8.0) Urine Specific [place] <=1.005 (1.000-1.030) Urine Protein Negative mg/dL (NEG-TRACE) Urine Glucose (UA) Negative mg/dL (NEG) Urine Ketones (Stick) Negative mg/dL (NEG) Urine Blood Negative (NEG) Urine Nitrite Negative (NEG) Urine Bilirubin Negative (NEG) Urine Urobilinogen Dipstick 0.2 mg/dL (0.2 mg/dL) Urine Leukocyte Esterase Negative (NEG) Urine RBC Occ /HPF (0-2) Urine WBC Occ /HPF (0-4) Urine Squamous Epithelial Cells Mod /LPF Urine Bacteria 0 /HPF (0-FEW) Urine Opiates Screen Neg (NEG) Urine Methadone Screen Neg (NEG) Urine Barbiturates Neg (NEG) Urine Phencyclidine Screen Neg (NEG) Urine Amphetamine/Methamphetamine Neg (NEG) Urine Benzodiazepines Screen Neg (NEG) Urine Cocaine Screen Neg (NEG) Urine Cannabinoids Screen Neg (NEG) Urine Ethyl Alcohol Neg (NEG) Images: Images PROCEDURE: PORTABLE CHEST 1V EXAM: XR CHEST 1V 10/07/2020 9:17 AM CLINICAL INDICATION: Shortness of breath COMPARISON: Chest radiograph 10/02/2020 TECHNIQUE: AP view of the chest FINDINGS: Cardiomegaly and interstitial opacities with hazy opacities in the lung bases are unchanged allowing for differences in technique. No pneumothorax. No acute osseous abnormality. IMPRESSION: No significant change in cardiomegaly with mild pulmonary edema and small pleural effusions. Assessment/Plan Assessment/Plan Chest pain concerning for UA/NSTEMI elevated troponins, Type II demand ischemia CHF seen on [facility] with LVEDP up to 40mmHG CAD wihtout stents Hx of polysubstance abuse cardiology consult Pending TTE Pending UDS - continue ASA daily - continue NTG PRN for pain - continue B-rishi - continue high-intensity statins - PRN IV morphine - continue Lovenox/heparin - maintain O2 sat between 88-95% - trend troponins - continue telemonitoring - monitor for electrolyte abnormalities - Avoid NSAIDs - cardiology consulted Justifications for Admission Other Justification Shortness of breath on exertion, hypoxia BILLIE ROBLES MD Oct 07, 2020 21:41
[2020-10-07 22:52] VITALS: BP 144/97
[2020-10-08 02:59] VITALS: BP 129/87
[2020-10-08] MEDS: MORPHINE SULFATE 2 MG/ML INJ. IVP PRN ×3 (06:04→12:03)
[2020-10-08 07:42] LABS: BASO % 0 % (0-3); EOS # 0.1 x10^3/uL (0.0-0.7); EOS % 1 % (0-3); HEMATOCRIT 39.5 % (36.0-47.0); HEMOGLOBIN 12.9 g/dL (12.0-15.5); LYMPH % 20 % (24-48); MEAN CORPUSCULAR HEMOGLOBIN 30 pg (25-35); MEAN CORPUSCULAR HGB CONC 33 g/dL (31-37); MEAN CORPUSCULAR VOLUME 93 fL (79-100); MONO # 0.5 x10^3/uL (0.0-1.1); MONO % 5 % (0-9); NEUT # 7.3 x10^3/uL (1.8-7.7); NEUT % 73 % (31-73); PLATELET COUNT 280 x10^3/uL (140-400); RED BLOOD COUNT 4.24 x10^6/uL (3.50-5.40); RED CELL DISTRIBUTION WIDTH 15.5 % (11.5-14.5)
[2020-10-08 07:45] VITALS: BP 139/106
[2020-10-08 07:56] LABS: CALCIUM 8.7 mg/dL (8.5-10.1); GFR 59.2; MAGNESIUM 2.3 mg/dL (1.8-2.4); PHOSPHORUS 3.5 mg/dL (2.6-4.7); POTASSIUM 3.7 mmol/L (3.5-5.1)
[2020-10-08] MEDS ORDERED: ISOSORBIDE MONONITRATE ER 30 MG TAB.ER.24H PO SCH (09:00)
[2020-10-08] MEDS: ASPIRIN ENTERIC COATED 81 MG TABLET.DR. PO SCH (09:04)
[2020-10-08] MEDS ORDERED: FUROSEMIDE 40 MG/4 ML VIAL. IVP ONE (10:00)
[2020-10-08] MEDS ORDERED: POTASSIUM CHLORIDE 20 MEQ TABLET.ER. PO ONE (10:00)
--- NOTE | 2020-10-08 10:14 | PDOC ---
SOLO THORNE MANAGER INTEGRATION 10/08/20 1014: CARDIO Progress Notes Date and Time Date of Service 10/08/2020 Time of Evaluation 0945 Subjective Subjective: No Chest Pain, No shortness of breath, No Palpitations Vitals Vitals Vital Signs Date Time Temp Pulse Resp B/P (MAP) Pulse Ox O2 Delivery O2 Flow Rate FiO2 10/08/20 09:11 20 Room Air 10/08/20 09:04 89 139/106 10/08/20 07:45 97.8 98 97.8 Weight Weight [ ] Input and Output Intake and Output Intake and Output 10/08/20 07:00 Intake Total 351 ml Output Total 2000 ml Balance -1649 ml Intake Oral 300 ml IV Total 51 ml Output Urine Total 2000 ml Laboratory Labs Laboratory Tests Test 10/07/20 11:55 10/08/20 06:05 Urine Collection Type Void Urine Color Yellow Urine Clarity Clear Urine pH 7.0 (<5.0-8.0) Urine Specific [place] <=1.005 (1.000-1.030) Urine Protein Negative mg/dL (NEG-TRACE) Urine Glucose (UA) Negative mg/dL (NEG) Urine Ketones (Stick) Negative mg/dL (NEG) Urine Blood Negative (NEG) Urine Nitrite Negative (NEG) Urine Bilirubin Negative (NEG) Urine Urobilinogen Dipstick 0.2 mg/dL (0.2 mg/dL) Urine Leukocyte Esterase Negative (NEG) Urine RBC Occ /HPF (0-2) Urine WBC Occ /HPF (0-4) Urine Squamous Epithelial Cells Mod /LPF Urine Bacteria 0 /HPF (0-FEW) Urine Opiates Screen Neg (NEG) Urine Methadone Screen Neg (NEG) Urine Barbiturates Neg (NEG) Urine Phencyclidine Screen Neg (NEG) Urine Amphetamine/Methamphetamine Neg (NEG) Urine Benzodiazepines Screen Neg (NEG) Urine Cocaine Screen Neg (NEG) Urine Cannabinoids Screen Neg (NEG) Urine Ethyl Alcohol Neg (NEG) White Blood Count 10.0 x10^3/uL (4.0-11.0) Red Blood Count 4.24 x10^6/uL (3.50-5.40) Hemoglobin 12.9 g/dL (12.0-15.5) Hematocrit 39.5 % (36.0-47.0) Mean Corpuscular Volume 93 fL (79-100) Mean Corpuscular Hemoglobin 30 pg (25-35) Mean Corpuscular Hemoglobin Concent 33 g/dL (31-37) Red Cell Distribution Width 15.5 % (11.5-14.5) Platelet Count 280 x10^3/uL (140-400) Neutrophils (%) (Auto) 73 % (31-73) Lymphocytes (%) (Auto) 20 % (24-48) Monocytes (%) (Auto) 5 % (0-9) Eosinophils (%) (Auto) 1 % (0-3) Basophils (%) (Auto) 0 % (0-3) Neutrophils # (Auto) 7.3 x10^3/uL (1.8-7.7) Lymphocytes # (Auto) 2.0 x10^3/uL (1.0-4.8) Monocytes # (Auto) 0.5 x10^3/uL (0.0-1.1) Eosinophils # (Auto) 0.1 x10^3/uL (0.0-0.7) Basophils # (Auto) 0.0 x10^3/uL (0.0-0.2) Sodium Level 139 mmol/L (136-145) Potassium Level 3.7 mmol/L (3.5-5.1) Chloride Level 104 mmol/L (98-107) Carbon Dioxide Level 28 mmol/L (21-32) Anion Gap 7 (6-14) Blood Urea Nitrogen 23 mg/dL (7-20) Creatinine 1.0 mg/dL (0.6-1.0) Estimated GFR (Cockcroft-Gault) 59.2 Glucose Level 109 mg/dL (70-99) Calcium Level 8.7 mg/dL (8.5-10.1) Phosphorus Level 3.5 mg/dL (2.6-4.7) Magnesium Level 2.3 mg/dL (1.8-2.4) Physical Exam HEENT: Neck Supple W Full Motion Chest: Symmetric LUNGS: Other (diminished ) Heart: RRR (SR LBBB) Abdomen: Soft N/T Extremities: No Calf Tenderness Neurology: alert, follow commands Assessment Assessment HPI: This is a 49 yo female admitted for complains of SOA, no fever or chills or recent exposure to covid-19. No leg swelling. Her symptoms just started in the last 1-2 days. No recent falls or injury. she has cut back on her smoking and has stopped using cocaine. Denies any palpitations and no nausea or vomiting. She has had LHC recently and noted with CHF and mild nonobstructive CAD. 1. Acute on chronic diastolic/systolic CHF 2. NICM: 3. Hx of substance abuse: recently UDS+ cocaine. negative currently 4. Mild nonobstructive CAD: recent LHC 09/25/2020 5. Mild troponin elevation: demand mediated 6. Chronic LBBB 7. AECOPD with tobaccoism: per PCP 8. Chest pain: due to CHF 9. Metabolic syndrome/obesity Recommendations 1. DC imdur,norvasc. Start on coreg and lisinopril. Lasix therapy 2. ASA lipitor 3. Dietitian consult 4. Follow up in office. anticipate DC tomorrow 5. Smoking cessation and encourage complete cocaine cessation Justicifation of Admission Dx: Justifications for Admission: Justification of Admission Dx: N/A ALEXSANDRA BURGESS MD 10/12/20 1911: CARDIO Progress Notes Plan Plan Late entry for 10/08/20 Pt. seen and examined. Agree with above GROUP DIRECTOR EXPERIENCE note. SOLO THORNE APRN Oct 08, 2020 10:14 ALEXSANDRA BURGESS MD Oct 12, 2020 19:11
[2020-10-08 10:49] VITALS: BP 110/42
--- NOTE | 2020-10-08 11:00 | PDOC ---
PROGRESS NOTES Date of Service: DATE: 10/08/20 TIME: 11:00 Chief Complaint Chief Complaint Assessment/Plan Chest pain concerning for UA/NSTEMI elevated troponins, Type II demand ischemia CHF seen on [facility] with LVEDP up to 40mmHG left ventricular systolic function is severely impaired. echo Ejection Fraction is 20-25%.Doppler flow pattern is Grade I-abnormal relaxation pattern. Mild mitral regurgitation. CAD wihtout stents Hx of polysubstance abuse, METH IN PAST Patient recently discharged on September 26 when she left AMA. PLAN CVC BED cardiology consult Pending TTE Pending UDS - continue ASA daily - continue NTG PRN for pain - continue B-rishi - continue high-intensity statins - PRN IV morphine - continue Lovenox/heparin - maintain O2 sat between 88-95% - trend troponins - continue telemonitoring - monitor for electrolyte abnormalities - Avoid NSAIDs - cardiology consulted DC skylar triana. Start on coreg and lisinopril. Lasix therapy D/W RN Justifications for Admission Justifications for Admission Other Justification Shortness of breath on exertion, hypoxia History of Present Illness History of Present Illness Chief Complaint: Chief Complain: chest pain History of Present Illness: HPI: 49 year old female who present to ER for evaluation of chest pain or trouble breathing. Patient was at admitted here on September 25, had cardiac catheterization done which show she had now vessel disease, she also had hypertension, tested positive for methamphetamine and cocaine. Patient was unable be prescribed some medication for her condition and high blood pressure, she was not having echocardiogram of her heart however she signed out AMA. Patient was then came back here on October 02 for the same problem, sand molder evaluated her and was going to do an echocardiogram on October 03 however patient left AMA again. Patient is having chest pain and trouble breathing with exertion patient denies any cough or fever. sHe is currently not on any medication Past Medical/Surgical History: PMH/PSH: Past Medical History: Depression, CHRONIC BACK PAIN,CHRONIC NERVE PAIN Past Surgical History: Hysterectomy, back surgery Allergies: Allergies: Coded Allergies: No Known Drug Allergies (Unverified , 08/17/13) Family History: Family History: Reviewed with no relevant findings Social History: Social History: Smoking Status: Current Every Day Smoker Alcohol Use: None Drug Use: Cocaine Current Medications: Current Medications Current Medications Furosemide (Lasix) 40 mg 1X ONCE IVP Last administered on 10/07/20at 10:40; Start 10/07/20 at 10:00; Stop 10/07/20 at 10:03; Status DC Sennosides (Senna) 17.2 mg PRN BID PRN PO CONSTIPATION; Start 10/07/20 at 12:15 Docusate Sodium (Colace) 100 mg PRN DAILY PRN PO HARD STOOLS; Start 10/07/20 at 12:15 Thiamine HCl 100 mg/Dextrose 51 ml @ 102 mls/hr DAILY IV Last administered on 10/07/20at 15:26; Start 10/07/20 at 13:00 Ondansetron HCl (Zofran) 4 mg PRN Q6HRS PRN IVP NAUSEA/VOMITING; Start 10/07/20 at 12:15 Aspirin (Ecotrin) 81 mg DAILYWBKFT PO Last administered on 10/07/20at 15:25; Start 10/07/20 at 13:00 Dextrose (Dextrose 50%-Water Syringe) 12.5 gm PRN Q15MIN PRN IV SEE COMMENTS; Start 10/07/20 at 12:15 Acetaminophen (Tylenol) 650 mg PRN Q4HRS PRN PO TEMP OVER 100.4F OR MILD PAIN; Start 10/07/20 at 12:15 Enoxaparin Sodium (Lovenox 40mg Syringe) 40 mg Q24H SQ Last administered on 10/07/20at 15:25; Start 10/07/20 at 13:00 Morphine Sulfate (Morphine Sulfate) 1 mg PRN Q1HR PRN IV PAIN-SEE COMMENTS; Start 10/07/20 at 12:15 Morphine Sulfate (Morphine Sulfate) 2 mg PRN Q2HR PRN IVP SEVERE PAIN 7-10 Last administered on 10/07/20at 20:55; Start 10/07/20 at 12:15; Stop 10/08/20 at 12:14 Albuterol Sulfate (Ventolin Neb Soln) 2.5 mg PRN Q6HRS PRN INH SHORTNESS OF BREATH; Start 10/07/20 at 21:15 Amlodipine Besylate (Norvasc) 5 mg DAILY PO ; Start 10/08/20 at 09:00 Isosorbide Mononitrate (Imdur) 30 mg DAILY PO ; Start 10/08/20 at 09:00 Budesonide (Pulmicort) 0.5 mg RTBID NEB ; Start 10/08/20 at 08:00 Duloxetine HCl (Cymbalta) 60 mg HS PO Last administered on 10/07/20at 21:26; Start 10/07/20 at 22:00 Albuterol Sulfate (Ventolin Neb Soln) 2.5 mg RTQID NEB ; Start 10/08/20 at 08:00 Active Scripts Active Symbicort 160-4.5 Mcg Inhaler (Budesonide/Formoterol Fumarate) 10.2 Gm Hfa.aer.ad 2 Puff IH BID 30 Days Proair Hfa Inhaler (Albuterol Sulfate) 8.5 Gm Hfa.aer.ad 1 Puff INH PRN Q6HRS PRN 60 Days Isosorbide Mononitrate Er (Isosorbide Mononitrate) 30 Mg Tab.er.24h 1 Tab PO DAILY 90 Days Norvasc (Amlodipine Besylate) 5 Mg Tablet 1 Tab PO DAILY 90 Days Reported Cymbalta (Duloxetine Hcl) 60 Mg Capsule. 1 Cap PO HS ROS: Review of Systems Review of System REVIEW OF SYSTEMS: GENERAL: Denies weakness SKIN: No bruising, hair changes or rashes. EYES: No blurred, double or loss of vision. NOSE AND THROAT: No history of nosebleeds, hoarseness or sore throat. HEART: No history of palpitations, chest pain or shortness of breath on exertion. LUNGS: Denies cough, hemoptysis, wheezing or shortness of breath. GASTROINTESTINAL: Denies changes in appetite, nausea, vomiting, diarrhea or constipation. GENITOURINARY: No history of frequency, urgency, hesitancy or nocturia. NEUROLOGIC: Denies history of numbness, tingling, or tremor. PSYCHIATRIC: No history of panic, anxiety or depression. ENDOCRINE: No history of heat or cold intolerance, polyuria or polydipsia. EXTREMITIES: Denies joint pain, pain on walking or stiffness. Vitals Vitals Vital Signs Date Time Temp Pulse Resp B/P (MAP) Pulse Ox O2 Delivery O2 Flow Rate FiO2 10/08/20 09:54 20 Room Air 10/08/20 09:04 89 139/106 10/08/20 07:45 97.8 98 97.8 Physical Exam Physical Exam Physcial Exam: GEN: No apparent distress. Alert and oriented HEENT: Normal cephalic, atraumatic, external auditory canals are patent EYES: Extraocular muscles are intact, pupil are equally round and reactive to light and accommodation MUSCULOSKELETAL: Well developed , well nourished, good range of motion ENDOCRINE: No thyromegaly was palpated LYMPHATICS: No cervical chain or axillary nodes were noted HEMATOPOIETIC: No bruising NECK: Supple, no JVD, no thyromegaly was noted LUNGS: Clear to auscultation in all lung melton without rhonchi or wheezing HEART: RRR, S!, S2 present. Peripheral pulses intact, no obvious murmurs noted ABDOMEN: Soft, nontender. Positive bowel sounds, no organomegaly, normal bowel sounds EXTREMITIES: Without clubbing, cyanosis, or edema. Pedal pulses intact. Negative Homans sign NEUROLOGIC: Normal speech and tone. A&O x 3, moves all extremities, no obvious focal deficits PSYCHIATRIC: Normal affect, normal mood. Stable SKIN: No ulcerations or rashes, good skin turgor, no jaundice VASCULAR: Good capillary refill, neurovascular bundle appears to be intact General: Oriented X3, Cooperative Lungs: Wheezing Abdomen: Normal bowel sounds, Soft Extremities: No cyanosis Labs LABS 2D DIMENSIONS Left Atrium(2D) 4.5 (1.6-4.0cm) IVSd 1.0 (0.7-1.1cm) Aortic Root(2D) 3.1 (2.0-3.7cm) LVDd 6.4 (3.9-5.9cm) LVOT Diameter 2.1 (1.8-2.4cm) PWd 1.0 (0.7-1.1cm) LVDs 4.8 (2.5-4.0cm) FS (%) 25.9 % SV 104.4 ml LVEF(%) 38.8 (>50%) Aortic Valve AoV Peak Philipp. 113.0cm/s AoV VTI 25.3cm AO Peak GR. 5.1mmHg LVOT VTI 16.95cm AO Mean GR. 6mmHg Mitral Valve MV E Velocity 36.1cm/s MV DECEL TIME 137ms MV A Velocity 111.4cm/s E/A Ratio 0.3 TDI Lateral E' P. V 5.60cm/s Medial E' P. V 5.47cm/s E/Lateral E' 6.4 E/Medial E' 6.6 Tricuspid Valve TR P. Velocity 290cm/s RAP ESTIMATE 8mmHg TR Peak Gr. 34mmHg RVSP 42mmHg Pulmonary Vein S1 Velocity 35.7cm/s S2 Velocity 76.74cm/s D2 Velocity 76.7cm/s LEFT VENTRICLE The Left Ventricle is moderately to severely dilated. There is normal left ventricular wall thickness. The left ventricular systolic function is severely impaired. The Ejection Fraction is 20-25%. There is global hypokinesis of the left ventricle. Transmitral Doppler flow pattern is Grade I-abnormal relaxation pattern. RIGHT VENTRICLE The right ventricle is mildly dilated. There is normal right ventricular wall thickness. The right ventricular systolic function is normal. ATRIA The left atrium is mildly dilated. The right atrium is mildly dilated. The interatrial septum is intact with no evidence for an atrial septal defect or patent foramen ovale as noted on 2-D or Doppler imaging. AORTIC VALVE The aortic valve is normal in structure and function. Doppler and Color Flow revealed trace aortic regurgitation. There is no significant aortic valvular stenosis. Calculated aortic valve area is 2.31 cm2 with maximum pressure gradient of 9 mmHg and mean pressure gradient of 6 mmHg. MITRAL VALVE The mitral valve is normal in structure and function. There is no evidence of mitral valve prolapse. There is no mitral valve stenosis. Doppler and Color-flow revealed mild mitral regurgitation. TRICUSPID VALVE The tricuspid valve is normal in structure and function. Doppler and Color Flow revealed trace tricuspid regurgitation with an estimated PAP of 42 mmHg. There is no tricuspid valve stenosis. PULMONIC VALVE The pulmonic valve is not well visualized. Doppler and Color Flow revealed no pulmonic valvular regurgitation. GREAT VESSELS The aortic root is normal in size. The IVC is dilated and collapses >50% with inspiration. PERICARDIAL EFFUSION There is no evidence of significant pericardial effusion. Critical Notification Critical Value: No <Conclusion> The left ventricular systolic function is severely impaired. The Ejection Fraction is 20-25%. Transmitral Doppler flow pattern is Grade I-abnormal relaxation pattern. Mild mitral regurgitation. Trace tricuspid regurgitation with an estimated PAP of 42 mmHg. There is no evidence of significant pericardial effusion. Signed by : Vicenta Samayoa, Electronically Approved : 10/08/2020 16:50:45 DICTATED and SIGNED BY: VICENTA SAMAYOA MD DATE: 10/07/20 [id number] Laboratory Tests Test 10/07/20 11:55 10/08/20 06:05 Urine Collection Type Void Urine Color Yellow Urine Clarity Clear Urine pH 7.0 (<5.0-8.0) Urine Specific [place] <=1.005 (1.000-1.030) Urine Protein Negative mg/dL (NEG-TRACE) Urine Glucose (UA) Negative mg/dL (NEG) Urine Ketones (Stick) Negative mg/dL (NEG) Urine Blood Negative (NEG) Urine Nitrite Negative (NEG) Urine Bilirubin Negative (NEG) Urine Urobilinogen Dipstick 0.2 mg/dL (0.2 mg/dL) Urine Leukocyte Esterase Negative (NEG) Urine RBC Occ /HPF (0-2) Urine WBC Occ /HPF (0-4) Urine Squamous Epithelial Cells Mod /LPF Urine Bacteria 0 /HPF (0-FEW) Urine Opiates Screen Neg (NEG) Urine Methadone Screen Neg (NEG) Urine Barbiturates Neg (NEG) Urine Phencyclidine Screen Neg (NEG) Urine Amphetamine/Methamphetamine Neg (NEG) Urine Benzodiazepines Screen Neg (NEG) Urine Cocaine Screen Neg (NEG) Urine Cannabinoids Screen Neg (NEG) Urine Ethyl Alcohol Neg (NEG) White Blood Count 10.0 x10^3/uL (4.0-11.0) Red Blood Count 4.24 x10^6/uL (3.50-5.40) Hemoglobin 12.9 g/dL (12.0-15.5) Hematocrit 39.5 % (36.0-47.0) Mean Corpuscular Volume 93 fL (79-100) Mean Corpuscular Hemoglobin 30 pg (25-35) Mean Corpuscular Hemoglobin Concent 33 g/dL (31-37) Red Cell Distribution Width 15.5 % (11.5-14.5) Platelet Count 280 x10^3/uL (140-400) Neutrophils (%) (Auto) 73 % (31-73) Lymphocytes (%) (Auto) 20 % (24-48) Monocytes (%) (Auto) 5 % (0-9) Eosinophils (%) (Auto) 1 % (0-3) Basophils (%) (Auto) 0 % (0-3) Neutrophils # (Auto) 7.3 x10^3/uL (1.8-7.7) Lymphocytes # (Auto) 2.0 x10^3/uL (1.0-4.8) Monocytes # (Auto) 0.5 x10^3/uL (0.0-1.1) Eosinophils # (Auto) 0.1 x10^3/uL (0.0-0.7) Basophils # (Auto) 0.0 x10^3/uL (0.0-0.2) Sodium Level 139 mmol/L (136-145) Potassium Level 3.7 mmol/L (3.5-5.1) Chloride Level 104 mmol/L (98-107) Carbon Dioxide Level 28 mmol/L (21-32) Anion Gap 7 (6-14) Blood Urea Nitrogen 23 mg/dL (7-20) Creatinine 1.0 mg/dL (0.6-1.0) Estimated GFR (Cockcroft-Gault) 59.2 Glucose Level 109 mg/dL (70-99) Calcium Level 8.7 mg/dL (8.5-10.1) Phosphorus Level 3.5 mg/dL (2.6-4.7) Magnesium Level 2.3 mg/dL (1.8-2.4) Assessment and Plan Assessmemt and Plan Problems Medical Problems: (1) Hypertension Status: Acute Comment Review of Relevant I have reviewed the following items rebecca (where applicable) has been applied. Labs Laboratory Tests Test 10/07/20 09:36 10/07/20 09:47 10/07/20 11:55 10/08/20 06:05 White Blood Count 10.9 x10^3/uL (4.0-11.0) 10.0 x10^3/uL (4.0-11.0) Red Blood Count 4.00 x10^6/uL (3.50-5.40) 4.24 x10^6/uL (3.50-5.40) Hemoglobin 12.2 g/dL (12.0-15.5) 12.9 g/dL (12.0-15.5) Hematocrit 37.0 % (36.0-47.0) 39.5 % (36.0-47.0) Mean Corpuscular Volume 92 fL (79-100) 93 fL (79-100) Mean Corpuscular Hemoglobin 31 pg (25-35) 30 pg (25-35) Mean Corpuscular Hemoglobin Concent 33 g/dL (31-37) 33 g/dL (31-37) Red Cell Distribution Width 15.4 % (11.5-14.5) 15.5 % (11.5-14.5) Platelet Count 257 x10^3/uL (140-400) 280 x10^3/uL (140-400) Neutrophils (%) (Auto) 79 % (31-73) 73 % (31-73) Lymphocytes (%) (Auto) 15 % (24-48) 20 % (24-48) Monocytes (%) (Auto) 5 % (0-9) 5 % (0-9) Eosinophils (%) (Auto) 1 % (0-3) 1 % (0-3) Basophils (%) (Auto) 1 % (0-3) 0 % (0-3) Neutrophils # (Auto) 8.5 x10^3/uL (1.8-7.7) 7.3 x10^3/uL (1.8-7.7) Lymphocytes # (Auto) 1.6 x10^3/uL (1.0-4.8) 2.0 x10^3/uL (1.0-4.8) Monocytes # (Auto) 0.6 x10^3/uL (0.0-1.1) 0.5 x10^3/uL (0.0-1.1) Eosinophils # (Auto) 0.1 x10^3/uL (0.0-0.7) 0.1 x10^3/uL (0.0-0.7) Basophils # (Auto) 0.1 x10^3/uL (0.0-0.2) 0.0 x10^3/uL (0.0-0.2) Sodium Level 144 mmol/L (136-145) 139 mmol/L (136-145) Potassium Level 3.9 mmol/L (3.5-5.1) 3.7 mmol/L (3.5-5.1) Chloride Level 108 mmol/L (98-107) 104 mmol/L (98-107) Carbon Dioxide Level 26 mmol/L (21-32) 28 mmol/L (21-32) Anion Gap 10 (6-14) 7 (6-14) Blood Urea Nitrogen 18 mg/dL (7-20) 23 mg/dL (7-20) Creatinine 0.9 mg/dL (0.6-1.0) 1.0 mg/dL (0.6-1.0) Estimated GFR (Cockcroft-Gault) 66.8 59.2 BUN/Creatinine Ratio 20 (6-20) Glucose Level 117 mg/dL (70-99) 109 mg/dL (70-99) Calcium Level 8.9 mg/dL (8.5-10.1) 8.7 mg/dL (8.5-10.1) Magnesium Level 2.2 mg/dL (1.8-2.4) 2.3 mg/dL (1.8-2.4) Total Bilirubin 0.6 mg/dL (0.2-1.0) Aspartate Amino Transf (AST/SGOT) 26 U/L (15-37) Alanine Aminotransferase (ALT/SGPT) 39 U/L (14-59) Alkaline Phosphatase 88 U/L (46-116) Troponin I Quantitative 0.190 ng/mL (0.000-0.055) JG-[id number]-I-Type Natriuretic Peptide 18826 pg/mL (0-124) Total Protein 6.7 g/dL (6.4-8.2) Albumin 3.1 g/dL (3.4-5.0) Albumin/Globulin Ratio 0.9 (1.0-1.7) Urine Collection Type Void Urine Color Yellow Urine Clarity Clear Urine pH 7.0 (<5.0-8.0) Urine Specific [place] <=1.005 (1.000-1.030) Urine Protein Negative mg/dL (NEG-TRACE) Urine Glucose (UA) Negative mg/dL (NEG) Urine Ketones (Stick) Negative mg/dL (NEG) Urine Blood Negative (NEG) Urine Nitrite Negative (NEG) Urine Bilirubin Negative (NEG) Urine Urobilinogen Dipstick 0.2 mg/dL (0.2 mg/dL) Urine Leukocyte Esterase Negative (NEG) Urine RBC Occ /HPF (0-2) Urine WBC Occ /HPF (0-4) Urine Squamous Epithelial Cells Mod /LPF Urine Bacteria 0 /HPF (0-FEW) Urine Opiates Screen Neg (NEG) Urine Methadone Screen Neg (NEG) Urine Barbiturates Neg (NEG) Urine Phencyclidine Screen Neg (NEG) Urine Amphetamine/Methamphetamine Neg (NEG) Urine Benzodiazepines Screen Neg (NEG) Urine Cocaine Screen Neg (NEG) Urine Cannabinoids Screen Neg (NEG) Urine Ethyl Alcohol Neg (NEG) Phosphorus Level 3.5 mg/dL (2.6-4.7) Laboratory Tests Test 10/07/20 11:55 10/08/20 06:05 Urine Collection Type Void Urine Color Yellow Urine Clarity Clear Urine pH 7.0 (<5.0-8.0) Urine Specific [place] <=1.005 (1.000-1.030) Urine Protein Negative mg/dL (NEG-TRACE) Urine Glucose (UA) Negative mg/dL (NEG) Urine Ketones (Stick) Negative mg/dL (NEG) Urine Blood Negative (NEG) Urine Nitrite Negative (NEG) Urine Bilirubin Negative (NEG) Urine Urobilinogen Dipstick 0.2 mg/dL (0.2 mg/dL) Urine Leukocyte Esterase Negative (NEG) Urine RBC Occ /HPF (0-2) Urine WBC Occ /HPF (0-4) Urine Squamous Epithelial Cells Mod /LPF Urine Bacteria 0 /HPF (0-FEW) Urine Opiates Screen Neg (NEG) Urine Methadone Screen Neg (NEG) Urine Barbiturates Neg (NEG) Urine Phencyclidine Screen Neg (NEG) Urine Amphetamine/Methamphetamine Neg (NEG) Urine Benzodiazepines Screen Neg (NEG) Urine Cocaine Screen Neg (NEG) Urine Cannabinoids Screen Neg (NEG) Urine Ethyl Alcohol Neg (NEG) White Blood Count 10.0 x10^3/uL (4.0-11.0) Red Blood Count 4.24 x10^6/uL (3.50-5.40) Hemoglobin 12.9 g/dL (12.0-15.5) Hematocrit 39.5 % (36.0-47.0) Mean Corpuscular Volume 93 fL (79-100) Mean Corpuscular Hemoglobin 30 pg (25-35) Mean Corpuscular Hemoglobin Concent 33 g/dL (31-37) Red Cell Distribution Width 15.5 % (11.5-14.5) Platelet Count 280 x10^3/uL (140-400) Neutrophils (%) (Auto) 73 % (31-73) Lymphocytes (%) (Auto) 20 % (24-48) Monocytes (%) (Auto) 5 % (0-9) Eosinophils (%) (Auto) 1 % (0-3) Basophils (%) (Auto) 0 % (0-3) Neutrophils # (Auto) 7.3 x10^3/uL (1.8-7.7) Lymphocytes # (Auto) 2.0 x10^3/uL (1.0-4.8) Monocytes # (Auto) 0.5 x10^3/uL (0.0-1.1) Eosinophils # (Auto) 0.1 x10^3/uL (0.0-0.7) Basophils # (Auto) 0.0 x10^3/uL (0.0-0.2) Sodium Level 139 mmol/L (136-145) Potassium Level 3.7 mmol/L (3.5-5.1) Chloride Level 104 mmol/L (98-107) Carbon Dioxide Level 28 mmol/L (21-32) Anion Gap 7 (6-14) Blood Urea Nitrogen 23 mg/dL (7-20) Creatinine 1.0 mg/dL (0.6-1.0) Estimated GFR (Cockcroft-Gault) 59.2 Glucose Level 109 mg/dL (70-99) Calcium Level 8.7 mg/dL (8.5-10.1) Phosphorus Level 3.5 mg/dL (2.6-4.7) Magnesium Level 2.3 mg/dL (1.8-2.4) Medications Current Medications Furosemide (Lasix) 40 mg 1X ONCE IVP Last administered on 10/07/20at 10:40; Start 10/07/20 at 10:00; Stop 10/07/20 at 10:03; Status DC Sennosides (Senna) 17.2 mg PRN BID PRN PO CONSTIPATION; Start 10/07/20 at 12:15 Docusate Sodium (Colace) 100 mg PRN DAILY PRN PO HARD STOOLS; Start 10/07/20 at 12:15 Thiamine HCl 100 mg/Dextrose 51 ml @ 102 mls/hr DAILY IV Last administered on 10/07/20at 15:26; Start 10/07/20 at 13:00 Ondansetron HCl (Zofran) 4 mg PRN Q6HRS PRN IVP NAUSEA/VOMITING; Start 10/07/20 at 12:15 Aspirin (Ecotrin) 81 mg DAILYWBKFT PO Last administered on 10/08/20at 09:04; Start 10/07/20 at 13:00 Dextrose (Dextrose 50%-Water Syringe) 12.5 gm PRN Q15MIN PRN IV SEE COMMENTS; Start 10/07/20 at 12:15 Acetaminophen (Tylenol) 650 mg PRN Q4HRS PRN PO TEMP OVER 100.4F OR MILD PAIN; Start 10/07/20 at 12:15 Enoxaparin Sodium (Lovenox 40mg Syringe) 40 mg Q24H SQ Last administered on 10/07/20at 15:25; Start 10/07/20 at 13:00 Morphine Sulfate (Morphine Sulfate) 1 mg PRN Q1HR PRN IV PAIN-SEE COMMENTS; Start 10/07/20 at 12:15 Morphine Sulfate (Morphine Sulfate) 2 mg PRN Q2HR PRN IVP SEVERE PAIN 7-10 Last administered on 10/08/20at 09:11; Start 10/07/20 at 12:15; Stop 10/08/20 at 12:14 Albuterol Sulfate (Ventolin Neb Soln) 2.5 mg PRN Q6HRS PRN INH SHORTNESS OF BREATH; Start 10/07/20 at 21:15 Amlodipine Besylate (Norvasc) 5 mg DAILY PO Last administered on 10/08/20at 09:04; Start 10/08/20 at 09:00; Stop 10/08/20 at 10:04; Status DC Isosorbide Mononitrate (Imdur) 30 mg DAILY PO ; Start 10/08/20 at 09:00; Stop 10/08/20 at 10:04; Status DC Budesonide (Pulmicort) 0.5 mg RTBID NEB ; Start 10/08/20 at 08:00 Duloxetine HCl (Cymbalta) 60 mg HS PO Last administered on 10/07/20at 21:26; Start 10/07/20 at 22:00 Albuterol Sulfate (Ventolin Neb Soln) 2.5 mg RTQID NEB ; Start 10/08/20 at 08:00 Atorvastatin Calcium (Lipitor) 20 mg QHS PO ; Start 10/08/20 at 21:00 Carvedilol (Coreg) 6.25 mg BIDWMEALS PO ; Start 10/08/20 at 17:00 Lisinopril (Prinivil) 10 mg DAILY PO ; Start 10/09/20 at 09:00 Furosemide (Lasix) 40 mg 1X ONCE IVP ; Start 10/08/20 at 10:00; Stop 10/08/20 at 10:07; Status DC Potassium Chloride (Klor-Con) 20 meq DAILYWBKFT PO ; Start 10/09/20 at 08:00 Potassium Chloride (Klor-Con) 20 meq 1X ONCE PO ; Start 10/08/20 at 10:00; Stop 10/08/20 at 10:07; Status DC Active Scripts Active Symbicort 160-4.5 Mcg Inhaler (Budesonide/Formoterol Fumarate) 10.2 Gm Hfa.aer.ad 2 Puff IH BID 30 Days Proair Hfa Inhaler (Albuterol Sulfate) 8.5 Gm Hfa.aer.ad 1 Puff INH PRN Q6HRS PRN 60 Days Isosorbide Mononitrate Er (Isosorbide Mononitrate) 30 Mg Tab.er.24h 1 Tab PO DAILY 90 Days Norvasc (Amlodipine Besylate) 5 Mg Tablet 1 Tab PO DAILY 90 Days Reported Cymbalta (Duloxetine Hcl) 60 Mg Capsule. 1 Cap PO HS Vitals/I & O Vital Sign - Last 24 Hours 10/07/20 10/07/20 10/07/20 10/07/20 11:55 12:22 13:22 13:52 Pulse 98 98 98 102 Resp 22 B/P (MAP) 147/89 (108) 143/92 (109) 135/84 (101) 128/64 (85) Pulse Ox 95 94 O2 Delivery Room Air Room Air Room Air Room Air 10/07/20 10/07/20 10/07/20 10/07/20 14:22 15:22 16:52 17:22 Pulse 100 96 100 100 Resp B/P (MAP) 135/84 (101) 139/77 (97) 158/89 (112) 145/77 (99) Pulse Ox 94 94 94 O2 Delivery Room Air Room Air Room Air Room Air 10/07/20 10/07/20 10/07/20 10/07/20 17:52 18:52 19:50 21:30 Temp 98.1 98.1 Pulse 100 96 104 Resp 19 B/P (MAP) 145/105 (118) 144/86 (105) 130/94 (106) Pulse Ox 94 94 96 O2 Delivery Room Air Room Air Room Air Room Air 10/07/20 10/08/20 10/08/20 10/08/20 22:52 02:59 07:45 09:04 Temp 98.0 98.2 97.8 98.0 98.2 97.8 Pulse 101 95 92 89 Resp 20 B/P (MAP) 144/97 (113) 129/87 (101) 139/106 (117) 139/106 Pulse Ox 95 94 98 O2 Delivery Room Air Room Air 10/08/20 10/08/20 09:11 09:54 Resp O2 Delivery Room Air Room Air Intake and Output 10/07/20 10/07/20 10/08/20 14:59 22:59 06:59 Intake Total 251 ml 100 ml Output Total 1000 ml 1000 ml Balance -1000 ml -749 ml 100 ml Justicifation of Admission Dx: Justifications for Admission: Justification of Admission Dx: N/A KELLI VASQUEZ MD Oct 08, 2020 11:00
[2020-10-08] MEDS: ENOXAPARIN 40 MG/0.4 ML SYRINGE. SQ SCH (12:47)
[2020-10-08] MEDS: THIAMINE INJ 100 MG in IV DEXTROSE 5% 50 ML IV SCH (12:47)
--- NOTE | 2020-10-08 14:35 | NUR ---
SS following for discharge planning. SS reviewed pt chart and discussed with pt RN. Pt is from home alone and is currently on room air. Cardiology consulted. SS will continue to follow for discharge planning.
[2020-10-08 15:00] VITALS: BP 102/58
--- NOTE | 2020-10-08 15:00 | NUR ---
this rn at bs as rn helper. pt laying right lat in bed calm watching tv. Vitals done call light within reach pt reporting pain 8/10 and requesting pain meds when avaialble. helper to inform pt nurse of pt request
[2020-10-08] MEDS: ALBUTEROL SULFATE 2.5 MG/3 ML NEBU. NEB SCH ×2 (15:36→20:49)
--- NOTE | 2020-10-08 15:38 | NUR ---
pt calls out reporting drink spilled and requesting linen change. this rn helper at bs. full bed linen changed. pt given sprite and applesauce at request. pt denies further needs at this time
--- NOTE | 2020-10-08 16:51 | CARD ---
MR#: [id number] Date of Study: 10/07/2020 Ordering Physician: BILLIE ROBLES, Referring Physician: BILLIE ROBLES, Tech: Zora Umana, [facility] APPROVED REPORT EXAM: Two-dimensional and M-mode echocardiogram with Doppler and color Doppler. Other Information Quality : GoodHR: 100bpm INDICATION Dyspnea Cardiomyopathy Congestive Heart Failure Elevated Troponin RISK FACTORS Hypertension Smoking 2D DIMENSIONS Left Atrium(2D)4.5 (1.6-4.0cm)IVSd1.0 (0.7-1.1cm) Aortic Root(2D)3.1 (2.0-3.7cm)LVDd6.4 (3.9-5.9cm) LVOT Diameter2.1 (1.8-2.4cm)PWd1.0 (0.7-1.1cm) LVDs4.8 (2.5-4.0cm)FS (%) 25.9 % SV104.4 mlLVEF(%)38.8 (>50%) Aortic Valve AoV Peak Philipp.113.0cm/sAoV VTI25.3cm AO Peak GR.5.1mmHgLVOT VTI 16.95cm AO Mean GR.6mmHg Mitral Valve MV E Yyfpdclg37.1cm/sMV DECEL [id number] MV A Gxrwuoco074.4cm/sE/A Ratio0.3 TDI Lateral E' P. V5.60cm/sMedial E' P. V5.47cm/s E/Lateral E'6.4E/Medial E'6.6 Tricuspid Valve TR P. Bsqephes358mz/sRAP [id number] TR Peak Gr.01wbMxEUZG06jpTr Pulmonary Vein S1 Vcqaywxz46.7cm/sS2 Gecqgwld98.74cm/s D2 Bwqkqcox53.7cm/s LEFT VENTRICLE The Left Ventricle is moderately to severely dilated. There is normal left ventricular wall thickness . The left ventricular systolic function is severely impaired. The Ejection Fraction is 20-25%. There is global hypokinesis of the left ventricle. Transmitral Doppler flow pattern is Grade I-abnormal re laxation pattern. RIGHT VENTRICLE The right ventricle is mildly dilated. There is normal right ventricular wall thickness. The right ve ntricular systolic function is normal. ATRIA The left atrium is mildly dilated. The right atrium is mildly dilated. The interatrial septum is inta ct with no evidence for an atrial septal defect or patent foramen ovale as noted on 2-D or Doppler im aging. AORTIC VALVE The aortic valve is normal in structure and function. Doppler and Color Flow revealed trace aortic re gurgitation. There is no significant aortic valvular stenosis. Calculated aortic valve area is 2.31 c m2 with maximum pressure gradient of 9 mmHg and mean pressure gradient of 6 mmHg. MITRAL VALVE The mitral valve is normal in structure and function. There is no evidence of mitral valve prolapse. There is no mitral valve stenosis. Doppler and Color-flow revealed mild mitral regurgitation. TRICUSPID VALVE The tricuspid valve is normal in structure and function. Doppler and Color Flow revealed trace tricus pid regurgitation with an estimated PAP of 42 mmHg. There is no tricuspid valve stenosis. PULMONIC VALVE The pulmonic valve is not well visualized. Doppler and Color Flow revealed no pulmonic valvular regur gitation. GREAT VESSELS The aortic root is normal in size. The IVC is dilated and collapses >50% with inspiration. PERICARDIAL EFFUSION There is no evidence of significant pericardial effusion. Critical Notification Critical Value: No <Conclusion> The left ventricular systolic function is severely impaired. The Ejection Fraction is 20-25%. Transmitral Doppler flow pattern is Grade I-abnormal relaxation pattern. Mild mitral regurgitation. Trace tricuspid regurgitation with an estimated PAP of 42 mmHg. There is no evidence of significant pericardial effusion. Signed by : Sanjiv Samayoa, Electronically Approved : 10/08/2020 16:50:45
[2020-10-08] MEDS: MORPHINE SULFATE 2 MG/ML INJ. IV PRN ×3 (17:12→22:57)
[2020-10-08] MEDS: CARVEDILOL 6.25 MG TABLET. PO SCH (17:12)
[2020-10-08 19:00] VITALS: BP 96/49
[2020-10-08] MEDS: BUDESONIDE 0.5 MG/2 ML NEBU. NEB SCH ×2 (20:00→20:49)
[2020-10-08] MEDS ORDERED: ATORVASTATIN CALCIUM 20 MG TABLET PO SCH (21:00)
[2020-10-08] MEDS: DULoxetine HCL 30 MG CAPSULE.DR PO SCH (21:05)
[2020-10-08 23:00] VITALS: BP 129/79
[2020-10-09] MEDS: MORPHINE SULFATE 2 MG/ML INJ. IV PRN ×3 (02:47→12:31)
[2020-10-09 03:00] VITALS: BP 123/70
[2020-10-09] MEDS: ALBUTEROL SULFATE 2.5 MG/3 ML NEBU. NEB SCH ×3 (05:42→16:03)
[2020-10-09] MEDS: BUDESONIDE 0.5 MG/2 ML NEBU. NEB SCH (05:42)
[2020-10-09 07:00] VITALS: BP 132/83
[2020-10-09] MEDS ORDERED: POTASSIUM CHLORIDE 20 MEQ TABLET.ER. PO SCH (08:00)
--- NOTE | 2020-10-09 08:37 | PDOC ---
PROGRESS NOTES Date of Service: DATE: 10/09/20 TIME: 08:36 Chief Complaint Chief Complaint Assessment/Plan Chest pain concerning for UA/NSTEMI elevated troponins, Type II demand ischemia CHF seen on [facility] with LVEDP up to 40mmHG left ventricular systolic function is severely impaired/ CHF/ . echo Ejection Fraction is 20-25%.Doppler flow pattern is Grade I-abnormal relaxation pattern. Mild mitral regurgitation. ACUTE METH INDUCED CAD wihtout stents Hx of polysubstance abuse, METH IN PAST Patient recently discharged on September 26 when she left AMA. PLAN [facility]VC BED cardiology consult Pending TTE Pending UDS - continue ASA daily - continue NTG PRN for pain - continue B-rishi - continue high-intensity statins - PRN IV morphine - continue Lovenox/heparin - maintain O2 sat between 88-95% - trend troponins - continue telemonitoring - monitor for electrolyte abnormalities - Avoid NSAIDs - cardiology consulted skylar Luis. Start on coreg and lisinopril. Lasix therapy D/W RN Justifications for Admission Justifications for Admission Other Justification Shortness of breath on exertion, hypoxia History of Present Illness History of Present Illness Chief Complaint: Chief Complain: chest pain History of Present Illness: HPI: 49 year old female who present to ER for evaluation of chest pain or trouble breathing. Patient was at admitted here on September 25, had cardiac catheterization done which show she had now vessel disease, she also had hypertension, tested positive for methamphetamine and cocaine. Patient was unable be prescribed some medication for her condition and high blood pressure, she was not having echocardiogram of her heart however she signed out AMA. Patient was then came back here on October 02 for the same problem, pressure vessel inspector evaluated her and was going to do an echocardiogram on October 03 however patient left AMA again. Patient is having chest pain and trouble breathing with exertion patient denies any cough or fever. sHe is currently not on any medication Past Medical/Surgical History: PMH/PSH: Past Medical History: Depression, CHRONIC BACK PAIN,CHRONIC NERVE PAIN Past Surgical History: Hysterectomy, back surgery Allergies: Allergies: Coded Allergies: No Known Drug Allergies (Unverified , 08/17/13) Family History: Family History: Reviewed with no relevant findings Social History: Social History: Smoking Status: Current Every Day Smoker Alcohol Use: None Drug Use: Cocaine Current Medications: Current Medications Current Medications Furosemide (Lasix) 40 mg 1X ONCE IVP Last administered on 10/07/20at 10:40; Start 10/07/20 at 10:00; Stop 10/07/20 at 10:03; Status DC Sennosides (Senna) 17.2 mg PRN BID PRN PO CONSTIPATION; Start 10/07/20 at 12:15 Docusate Sodium (Colace) 100 mg PRN DAILY PRN PO HARD STOOLS; Start 10/07/20 at 12:15 Thiamine HCl 100 mg/Dextrose 51 ml @ 102 mls/hr DAILY IV Last administered on 10/07/20at 15:26; Start 10/07/20 at 13:00 Ondansetron HCl (Zofran) 4 mg PRN Q6HRS PRN IVP NAUSEA/VOMITING; Start 10/07/20 at 12:15 Aspirin (Ecotrin) 81 mg DAILYWBKFT PO Last administered on 10/07/20at 15:25; Start 10/07/20 at 13:00 Dextrose (Dextrose 50%-Water Syringe) 12.5 gm PRN Q15MIN PRN IV SEE COMMENTS; Start 10/07/20 at 12:15 Acetaminophen (Tylenol) 650 mg PRN Q4HRS PRN PO TEMP OVER 100.4F OR MILD PAIN; Start 10/07/20 at 12:15 Enoxaparin Sodium (Lovenox 40mg Syringe) 40 mg Q24H SQ Last administered on 10/07/20at 15:25; Start 10/07/20 at 13:00 Morphine Sulfate (Morphine Sulfate) 1 mg PRN Q1HR PRN IV PAIN-SEE COMMENTS; Start 10/07/20 at 12:15 Morphine Sulfate (Morphine Sulfate) 2 mg PRN Q2HR PRN IVP SEVERE PAIN 7-10 Last administered on 10/07/20at 20:55; Start 10/07/20 at 12:15; Stop 10/08/20 at 12:14 Albuterol Sulfate (Ventolin Neb Soln) 2.5 mg PRN Q6HRS PRN INH SHORTNESS OF BREATH; Start 10/07/20 at 21:15 Amlodipine Besylate (Norvasc) 5 mg DAILY PO ; Start 10/08/20 at 09:00 Isosorbide Mononitrate (Imdur) 30 mg DAILY PO ; Start 10/08/20 at 09:00 Budesonide (Pulmicort) 0.5 mg RTBID NEB ; Start 10/08/20 at 08:00 Duloxetine HCl (Cymbalta) 60 mg HS PO Last administered on 10/07/20at 21:26; Start 10/07/20 at 22:00 Albuterol Sulfate (Ventolin Neb Soln) 2.5 mg RTQID NEB ; Start 10/08/20 at 08:00 Active Scripts Active Symbicort 160-4.5 Mcg Inhaler (Budesonide/Formoterol Fumarate) 10.2 Gm Hfa.aer.ad 2 Puff IH BID 30 Days Proair Hfa Inhaler (Albuterol Sulfate) 8.5 Gm Hfa.aer.ad 1 Puff INH PRN Q6HRS PRN 60 Days Isosorbide Mononitrate Er (Isosorbide Mononitrate) 30 Mg Tab.er.24h 1 Tab PO DAILY 90 Days Norvasc (Amlodipine Besylate) 5 Mg Tablet 1 Tab PO DAILY 90 Days Reported Cymbalta (Duloxetine Hcl) 60 Mg Capsule. 1 Cap PO HS ROS: Review of Systems Review of System REVIEW OF SYSTEMS: GENERAL: Denies weakness SKIN: No bruising, hair changes or rashes. EYES: No blurred, double or loss of vision. NOSE AND THROAT: No history of nosebleeds, hoarseness or sore throat. HEART: No history of palpitations, chest pain or shortness of breath on exertion. LUNGS: Denies cough, hemoptysis, wheezing or shortness of breath. GASTROINTESTINAL: Denies changes in appetite, nausea, vomiting, diarrhea or constipation. GENITOURINARY: No history of frequency, urgency, hesitancy or nocturia. NEUROLOGIC: Denies history of numbness, tingling, or tremor. PSYCHIATRIC: No history of panic, anxiety or depression. ENDOCRINE: No history of heat or cold intolerance, polyuria or polydipsia. EXTREMITIES: Denies joint pain, pain on walking or stiffness. 7-16 Chest pain concerning for UA/NSTEMI elevated troponins, Type II demand ischemia CHF seen on [facility] with LVEDP up to 40mmHG left ventricular systolic function is severely impaired/ CHF/ . echo Ejection Fraction is 20-25%.Doppler flow pattern is Grade I-abnormal relaxation pattern. Mild mitral regurgitation. ACUTE METH INDUCED CAD wihtout stents Hx of polysubstance abuse, METH IN PAST Patient recently discharged on September 26 when she left AMA. PLAN [facility]VC BED cardiology consult Pending TTE Pending UDS - continue ASA daily - continue NTG PRN for pain - continue B-rishi - continue high-intensity statins - PRN IV morphine - continue Lovenox/heparin - maintain O2 sat between 88-95% - trend troponins - continue telemonitoring - monitor for electrolyte abnormalities - Avoid NSAIDs - cardiology consulted DC skylar triana. Start on coreg and lisinopril. Lasix therapy D/W RN 37 Min pt exam, chart review, > 50% of time spent with exam, chart review, pt care coordination Vitals Vitals Vital Signs Date Time Temp Pulse Resp B/P (MAP) Pulse Ox O2 Delivery O2 Flow Rate FiO2 10/09/20 08:10 Nasal Cannula 2.0 10/09/20 07:00 97.9 77 18 132/83 (99) 96 97.9 Physical Exam Physical Exam Physcial Exam: GEN: No apparent distress. Alert and oriented HEENT: Normal cephalic, atraumatic, external auditory canals are patent EYES: Extraocular muscles are intact, pupil are equally round and reactive to light and accommodation MUSCULOSKELETAL: Well developed , well nourished, good range of motion ENDOCRINE: No thyromegaly was palpated LYMPHATICS: No cervical chain or axillary nodes were noted HEMATOPOIETIC: No bruising NECK: Supple, no JVD, no thyromegaly was noted LUNGS: Clear to auscultation in all lung melton without rhonchi or wheezing HEART: RRR, S!, S2 present. Peripheral pulses intact, no obvious murmurs noted ABDOMEN: Soft, nontender. Positive bowel sounds, no organomegaly, normal mike l sounds EXTREMITIES: Without clubbing, cyanosis, or edema. Pedal pulses intact. Negative Homans sign NEUROLOGIC: Normal speech and tone. A&O x 3, moves all extremities, no obvious focal deficits PSYCHIATRIC: Normal affect, normal mood. Stable SKIN: No ulcerations or rashes, good skin turgor, no jaundice VASCULAR: Good capillary refill, neurovascular bundle appears to be intact General: Oriented X3, Cooperative, No acute distress Lungs: Wheezing Abdomen: Normal bowel sounds, Soft Extremities: No cyanosis Assessment and Plan Assessmemt and Plan Problems Medical Problems: (1) Hypertension Status: Acute Chief Complaint Chief Complaint Assessment/Plan Chest pain concerning for UA/NSTEMI elevated troponins, Type II demand ischemia CHF seen on [facility] with LVEDP up to 40mmHG left ventricular systolic function is severely impaired. echo Ejection Fraction is 20-25%.Doppler flow pattern is Grade I-abnormal relaxation pattern. Mild mitral regurgitation. CAD wihtout stents Hx of polysubstance abuse, METH IN PAST Patient recently discharged on September 26 when she left AMA. PLAN [facility] BED cardiology consult Pending TTE Pending UDS - continue ASA daily - continue NTG PRN for pain - continue B-rishi - continue high-intensity statins - PRN IV morphine - continue Lovenox/heparin - maintain O2 sat between 88-95% - trend troponins - continue telemonitoring - monitor for electrolyte abnormalities - Avoid NSAIDs - cardiology consulted skylar Luis. Start on coreg and lisinopril. Lasix therapy D/W RN Justifications for Admission Justifications for Admission Other Justification Shortness of breath on exertion, hypoxia History of Present Illness History of Present Illness Chief Complaint: Chief Complain: chest pain History of Present Illness: HPI: 49 year old female who present to ER for evaluation of chest pain or trouble breathing. Patient was at admitted here on September 25, had cardiac catheterization done which show she had now vessel disease, she also had hypertension, tested positive for methamphetamine and cocaine. Patient was unable be prescribed some medication for her condition and high blood pressure, she was not having echocardiogram of her heart however she signed out AMA. Patient was then came back here on October 02 for the same problem, pressure vessel inspector evaluated her and was going to do an echocardiogram on October 03 however patient left AMA again. Patient is having chest pain and trouble breathing with exertion patient denies any cough or fever. sHe is currently not on any medication Past Medical/Surgical History: PMH/PSH: Past Medical History: Depression, CHRONIC BACK PAIN,CHRONIC NERVE PAIN Past Surgical History: Hysterectomy, back surgery Allergies: Allergies: Coded Allergies: No Known Drug Allergies (Unverified , 08/17/13) Family History: Family History: Reviewed with no relevant findings Social History: Social History: Smoking Status: Current Every Day Smoker Alcohol Use: None Drug Use: Cocaine Current Medications: Current Medications Current Medications Furosemide (Lasix) 40 mg 1X ONCE IVP Last administered on 10/07/20at 10:40; Start 10/07/20 at 10:00; Stop 10/07/20 at 10:03; Status DC Sennosides (Senna) 17.2 mg PRN BID PRN PO CONSTIPATION; Start 10/07/20 at 12:15 Docusate Sodium (Colace) 100 mg PRN DAILY PRN PO HARD STOOLS; Start 10/07/20 at 12:15 Thiamine HCl 100 mg/Dextrose 51 ml @ 102 mls/hr DAILY IV Last administered on 10/07/20at 15:26; Start 10/07/20 at 13:00 Ondansetron HCl (Zofran) 4 mg PRN Q6HRS PRN IVP NAUSEA/VOMITING; Start 10/07/20 at 12:15 Aspirin (Ecotrin) 81 mg DAILYWBKFT PO Last administered on 10/07/20at 15:25; Start 10/07/20 at 13:00 Dextrose (Dextrose 50%-Water Syringe) 12.5 gm PRN Q15MIN PRN IV SEE COMMENTS; Start 10/07/20 at 12:15 Acetaminophen (Tylenol) 650 mg PRN Q4HRS PRN PO TEMP OVER 100.4F OR MILD PAIN; Start 10/07/20 at 12:15 Enoxaparin Sodium (Lovenox 40mg Syringe) 40 mg Q24H SQ Last administered on 10/07/20at 15:25; Start 10/07/20 at 13:00 Morphine Sulfate (Morphine Sulfate) 1 mg PRN Q1HR PRN IV PAIN-SEE COMMENTS; Start 10/07/20 at 12:15 Morphine Sulfate (Morphine Sulfate) 2 mg PRN Q2HR PRN IVP SEVERE PAIN 7-10 Last administered on 10/07/20at 20:55; Start 10/07/20 at 12:15; Stop 10/08/20 at 12:14 Albuterol Sulfate (Ventolin Neb Soln) 2.5 mg PRN Q6HRS PRN INH SHORTNESS OF BREATH; Start 10/07/20 at 21:15 Amlodipine Besylate (Norvasc) 5 mg DAILY PO ; Start 10/08/20 at 09:00 Isosorbide Mononitrate (Imdur) 30 mg DAILY PO ; Start 10/08/20 at 09:00 Budesonide (Pulmicort) 0.5 mg RTBID NEB ; Start 10/08/20 at 08:00 Duloxetine HCl (Cymbalta) 60 mg HS PO Last administered on 10/07/20at 21:26; Start 10/07/20 at 22:00 Albuterol Sulfate (Ventolin Neb Soln) 2.5 mg RTQID NEB ; Start 10/08/20 at 08:00 Active Scripts Active Symbicort 160-4.5 Mcg Inhaler (Budesonide/Formoterol Fumarate) 10.2 Gm Hfa.aer.ad 2 Puff IH BID 30 Days Proair Hfa Inhaler (Albuterol Sulfate) 8.5 Gm Hfa.aer.ad 1 Puff INH PRN Q6HRS PRN 60 Days Isosorbide Mononitrate Er (Isosorbide Mononitrate) 30 Mg Tab.er.24h 1 Tab PO DAILY 90 Days Norvasc (Amlodipine Besylate) 5 Mg Tablet 1 Tab PO DAILY 90 Days Reported Cymbalta (Duloxetine Hcl) 60 Mg Capsule. 1 Cap PO HS ROS: Review of Systems Review of System REVIEW OF SYSTEMS: GENERAL: Denies weakness SKIN: No bruising, hair changes or rashes. EYES: No blurred, double or loss of vision. NOSE AND THROAT: No history of nosebleeds, hoarseness or sore throat. HEART: No history of palpitations, chest pain or shortness of breath on exertion. LUNGS: Denies cough, hemoptysis, wheezing or shortness of breath. GASTROINTESTINAL: Denies changes in appetite, nausea, vomiting, diarrhea or constipation. GENITOURINARY: No history of frequency, urgency, hesitancy or nocturia. NEUROLOGIC: Denies history of numbness, tingling, or tremor. PSYCHIATRIC: No history of panic, anxiety or depression. ENDOCRINE: No history of heat or cold intolerance, polyuria or polydipsia. EXTREMITIES: Denies joint pain, pain on walking or stiffness. Comment Review of Relevant I have reviewed the following items rebecca (where applicable) has been applied. Labs Laboratory Tests Test 10/07/20 09:36 10/07/20 09:47 10/07/20 11:55 10/08/20 06:05 White Blood Count 10.9 x10^3/uL (4.0-11.0) 10.0 x10^3/uL (4.0-11.0) Red Blood Count 4.00 x10^6/uL (3.50-5.40) 4.24 x10^6/uL (3.50-5.40) Hemoglobin 12.2 g/dL (12.0-15.5) 12.9 g/dL (12.0-15.5) Hematocrit 37.0 % (36.0-47.0) 39.5 % (36.0-47.0) Mean Corpuscular Volume 92 fL (79-100) 93 fL (79-100) Mean Corpuscular Hemoglobin 31 pg (25-35) 30 pg (25-35) Mean Corpuscular Hemoglobin Concent 33 g/dL (31-37) 33 g/dL (31-37) Red Cell Distribution Width 15.4 % (11.5-14.5) 15.5 % (11.5-14.5) Platelet Count 257 x10^3/uL (140-400) 280 x10^3/uL (140-400) Neutrophils (%) (Auto) 79 % (31-73) 73 % (31-73) Lymphocytes (%) (Auto) 15 % (24-48) 20 % (24-48) Monocytes (%) (Auto) 5 % (0-9) 5 % (0-9) Eosinophils (%) (Auto) 1 % (0-3) 1 % (0-3) Basophils (%) (Auto) 1 % (0-3) 0 % (0-3) Neutrophils # (Auto) 8.5 x10^3/uL (1.8-7.7) 7.3 x10^3/uL (1.8-7.7) Lymphocytes # (Auto) 1.6 x10^3/uL (1.0-4.8) 2.0 x10^3/uL (1.0-4.8) Monocytes # (Auto) 0.6 x10^3/uL (0.0-1.1) 0.5 x10^3/uL (0.0-1.1) Eosinophils # (Auto) 0.1 x10^3/uL (0.0-0.7) 0.1 x10^3/uL (0.0-0.7) Basophils # (Auto) 0.1 x10^3/uL (0.0-0.2) 0.0 x10^3/uL (0.0-0.2) Sodium Level 144 mmol/L (136-145) 139 mmol/L (136-145) Potassium Level 3.9 mmol/L (3.5-5.1) 3.7 mmol/L (3.5-5.1) Chloride Level 108 mmol/L (98-107) 104 mmol/L (98-107) Carbon Dioxide Level 26 mmol/L (21-32) 28 mmol/L (21-32) Anion Gap 10 (6-14) 7 (6-14) Blood Urea Nitrogen 18 mg/dL (7-20) 23 mg/dL (7-20) Creatinine 0.9 mg/dL (0.6-1.0) 1.0 mg/dL (0.6-1.0) Estimated GFR (Cockcroft-Gault) 66.8 59.2 BUN/Creatinine Ratio 20 (6-20) Glucose Level 117 mg/dL (70-99) 109 mg/dL (70-99) Calcium Level 8.9 mg/dL (8.5-10.1) 8.7 mg/dL (8.5-10.1) Magnesium Level 2.2 mg/dL (1.8-2.4) 2.3 mg/dL (1.8-2.4) Total Bilirubin 0.6 mg/dL (0.2-1.0) Aspartate Amino Transf (AST/SGOT) 26 U/L (15-37) Alanine Aminotransferase (ALT/SGPT) 39 U/L (14-59) Alkaline Phosphatase 88 U/L (46-116) Troponin I Quantitative 0.190 ng/mL (0.000-0.055) LL-Ugu-Y-Type Natriuretic Peptide 85873 pg/mL (0-124) Total Protein 6.7 g/dL (6.4-8.2) Albumin 3.1 g/dL (3.4-5.0) Albumin/Globulin Ratio 0.9 (1.0-1.7) Urine Collection Type Void Urine Color Yellow Urine Clarity Clear Urine pH 7.0 (<5.0-8.0) Urine Specific [place] <=1.005 (1.000-1.030) Urine Protein Negative mg/dL (NEG-TRACE) Urine Glucose (UA) Negative mg/dL (NEG) Urine Ketones (Stick) Negative mg/dL (NEG) Urine Blood Negative (NEG) Urine Nitrite Negative (NEG) Urine Bilirubin Negative (NEG) Urine Urobilinogen Dipstick 0.2 mg/dL (0.2 mg/dL) Urine Leukocyte Esterase Negative (NEG) Urine RBC Occ /HPF (0-2) Urine WBC Occ /HPF (0-4) Urine Squamous Epithelial Cells Mod /LPF Urine Bacteria 0 /HPF (0-FEW) Urine Opiates Screen Neg (NEG) Urine Methadone Screen Neg (NEG) Urine Barbiturates Neg (NEG) Urine Phencyclidine Screen Neg (NEG) Urine Amphetamine/Methamphetamine Neg (NEG) Urine Benzodiazepines Screen Neg (NEG) Urine Cocaine Screen Neg (NEG) Urine Cannabinoids Screen Neg (NEG) Urine Ethyl Alcohol Neg (NEG) Phosphorus Level 3.5 mg/dL (2.6-4.7) Medications Current Medications Furosemide (Lasix) 40 mg 1X ONCE IVP Last administered on 10/07/20at 10:40; Start 10/07/20 at 10:00; Stop 10/07/20 at 10:03; Status DC Sennosides (Senna) 17.2 mg PRN BID PRN PO CONSTIPATION; Start 10/07/20 at 12:15 Docusate Sodium (Colace) 100 mg PRN DAILY PRN PO HARD STOOLS; Start 10/07/20 at 12:15 Thiamine HCl 100 mg/Dextrose 51 ml @ 102 mls/hr DAILY IV Last administered on 10/08/20at 12:47; Start 10/07/20 at 13:00; Stop 10/09/20 at 07:00; Status DC Ondansetron HCl (Zofran) 4 mg PRN Q6HRS PRN IVP NAUSEA/VOMITING; Start 10/07/20 at 12:15 Aspirin (Ecotrin) 81 mg DAILYWBKFT PO Last administered on 10/08/20at 09:04; Start 10/07/20 at 13:00 Dextrose (Dextrose 50%-Water Syringe) 12.5 gm PRN Q15MIN PRN IV SEE COMMENTS; Start 10/07/20 at 12:15 Acetaminophen (Tylenol) 650 mg PRN Q4HRS PRN PO TEMP OVER 100.4F OR MILD PAIN; Start 10/07/20 at 12:15 Enoxaparin Sodium (Lovenox 40mg Syringe) 40 mg Q24H SQ Last administered on 10/08/20at 12:47; Start 10/07/20 at 13:00 Morphine Sulfate (Morphine Sulfate) 1 mg PRN Q1HR PRN IV PAIN-SEE COMMENTS Last administered on 10/09/20at 02:47; Start 10/07/20 at 12:15 Morphine Sulfate (Morphine Sulfate) 2 mg PRN Q2HR PRN IVP SEVERE PAIN 7-10 Last administered on 10/08/20at 12:03; Start 10/07/20 at 12:15; Stop 10/08/20 at 12:14; Status DC Albuterol Sulfate (Ventolin Neb Soln) 2.5 mg PRN Q6HRS PRN INH SHORTNESS OF BREATH; Start 10/07/20 at 21:15 Amlodipine Besylate (Norvasc) 5 mg DAILY PO Last administered on 10/08/20at 09:04; Start 10/08/20 at 09:00; Stop 10/08/20 at 10:04; Status DC Isosorbide Mononitrate (Imdur) 30 mg DAILY PO ; Start 10/08/20 at 09:00; Stop 10/08/20 at 10:04; Status DC Budesonide (Pulmicort) 0.5 mg RTBID NEB Last administered on 10/09/20at 05:42; Start 10/08/20 at 08:00 Duloxetine HCl (Cymbalta) 60 mg HS PO Last administered on 10/08/20at 21:05; Start 10/07/20 at 22:00 Albuterol Sulfate (Ventolin Neb Soln) 2.5 mg RTQID NEB Last administered on 10/09/20at 05:42; Start 10/08/20 at 08:00 Atorvastatin Calcium (Lipitor) 20 mg QHS PO Last administered on 10/08/20at 21:05; Start 10/08/20 at 21:00 Carvedilol (Coreg) 6.25 mg BIDWMEALS PO Last administered on 10/08/20at 17:12; Start 10/08/20 at 17:00 Lisinopril (Prinivil) 10 mg DAILY PO ; Start 10/09/20 at 09:00 Furosemide (Lasix) 40 mg 1X ONCE IVP Last administered on 10/08/20at 11:50; Start 10/08/20 at 10:00; Stop 10/08/20 at 10:07; Status DC Potassium Chloride (Klor-Con) 20 meq DAILYWBKFT PO ; Start 10/09/20 at 08:00 Potassium Chloride (Klor-Con) 20 meq 1X ONCE PO Last administered on 10/08/20at 11:50; Start 10/08/20 at 10:00; Stop 10/08/20 at 10:07; Status DC Thiamine Mononitrate (Vitamin B-1) 100 mg DAILY PO ; Start 10/09/20 at 09:00 Active Scripts Active Symbicort 160-4.5 Mcg Inhaler (Budesonide/Formoterol Fumarate) 10.2 Gm Hfa.aer.ad 2 Puff IH BID 30 Days Proair Hfa Inhaler (Albuterol Sulfate) 8.5 Gm Hfa.aer.ad 1 Puff INH PRN Q6HRS PRN 60 Days Isosorbide Mononitrate Er (Isosorbide Mononitrate) 30 Mg Tab.er.24h 1 Tab PO DAILY 90 Days Norvasc (Amlodipine Besylate) 5 Mg Tablet 1 Tab PO DAILY 90 Days Reported Cymbalta (Duloxetine Hcl) 60 Mg Capsule.dr [place] Cap PO HS Vitals/I & O Vital Sign - Last 24 Hours 10/08/20 10/08/20 10/08/20 10/08/20 09:04 09:11 09:54 10:49 Temp 97.6 97.6 Pulse 89 90 Resp 20 20 20 B/P (MAP) 139/106 110/42 (64) Pulse Ox 94 O2 Delivery Room Air Room Air 10/08/20 10/08/20 10/08/20 10/08/20 12:03 15:00 15:37 17:12 Temp 97.8 97.8 Pulse 92 Resp 20 20 18 B/P (MAP) 102/58 (73) Pulse Ox 97 97 O2 Delivery Nasal Cannula Nasal Cannula Room Air O2 Flow Rate 2.0 2.0 10/08/20 10/08/20 10/08/20 10/08/20 17:12 17:42 19:00 19:55 Temp 99.1 99.1 Pulse 91 79 Resp 16 19 B/P (MAP) 113/74 96/49 (65) Pulse Ox 92 O2 Delivery Room Air Room Air Nasal Cannula O2 Flow Rate 2.0 10/08/20 10/08/20 10/08/20 10/08/20 20:51 21:05 22:57 23:00 Temp 97.9 97.9 Pulse 93 Resp 16 16 22 B/P (MAP) 129/79 (96) Pulse Ox 94 91 O2 Delivery Room Air Room Air Room Air Room Air 10/09/20 10/09/20 10/09/20 10/09/20 02:47 03:00 05:43 07:00 Temp 97.8 97.9 97.8 97.9 Pulse 88 77 Resp 16 18 B/P (MAP) 123/70 (87) 132/83 (99) Pulse Ox 92 98 96 O2 Delivery Room Air Room Air Nasal Cannula Room Air O2 Flow Rate 2.0 10/09/20 08:10 O2 Delivery Nasal Cannula O2 Flow Rate 2.0 Intake and Output 10/08/20 10/08/20 10/09/20 15:00 23:00 07:00 Intake Total 1020 ml 320 ml Output Total 1500 ml Balance -480 ml 320 ml Justicifation of Admission Dx: Justifications for Admission: Justification of Admission Dx: N/A KELLI VASQUEZ MD Oct 09, 2020 08:37
[2020-10-09] MEDS: ASPIRIN ENTERIC COATED 81 MG TABLET.DR. PO SCH (08:52)
[2020-10-09] MEDS: CARVEDILOL 6.25 MG TABLET. PO SCH ×2 (08:52→16:47)
[2020-10-09] MEDS ORDERED: THIAMINE 100 MG TABLET. PO SCH (09:00)
[2020-10-09] MEDS ORDERED: LISINOPRIL 10 MG TABLET PO SCH (09:00)
[2020-10-09 11:01] VITALS: BP 108/64
[2020-10-09] MEDS: ENOXAPARIN 40 MG/0.4 ML SYRINGE. SQ SCH (12:29)
--- NOTE | 2020-10-09 14:29 | NUR ---
SS following up with discharge planning. SS reviewed pt chart and discussed with pt RN. Pt is currently on room air. Pt started on new meds. Cardiology signed off. Discharge plan is to home when medically ready. SS will continue to follow for discharge planning.
[2020-10-09 15:00] VITALS: BP 115/73
[2020-10-09] MEDS ORDERED: FURO40TA4 PO (17:40)
[2020-10-09] MEDS ORDERED: LISI10TA16 PO (17:41)
[2020-10-09] MEDS ORDERED: ASPI-630 PO (17:41)
[2020-10-09] MEDS ORDERED: CARV6.25 PO (17:41)
[2020-10-09] MEDS ORDERED: ATOR20TA PO (17:41)
[2020-10-09] MEDS ORDERED: POTA20TA4 PO (17:42)
--- NOTE | 2020-10-09 18:55 | NUR ---
Discharge Note: ARAVIND CAR Discharge instructions and discharge home medications reviewed with Patient and a copy given. All questions have been answered and understanding verbalized. Patient instructed to follow up with Primary Doctor and Dr. Handley after discharge. All belongings taken with patient. The following instructions and handouts were given: Furosemide, Atorvastatin, Carvedilol, Lisinopril, Aspirin, and Potassium Chloride tablets, Heart Failure, Cardiac Diet, Chest pain, and Smoking Cessation. Discontinued lines and drains: Peripheral IV intact. Patient discharged to Home or Self Care with Self via Wheelchair
[2020-10-10] MEDS ORDERED: FUROSEMIDE 40 MG TABLET. PO SCH (09:00)
== END 2020-10-09 18:55 | disposition home or self-care (01) | DRG 281 ==
LOC: ER 08:40 → ED HOLD 11:39 → 2 NORTH 19:40
PROVIDERS: ADMIT Internal Medicine; ATTEND Internal Medicine
DX: I11.0 Hypertensive heart disease with heart failure (principal); I21.A1 Myocardial infarction type 2; J44.1 Chronic obstructive pulmonary disease with (acute) exacerbation; I50.41 Acute combined systolic (congestive) and diastolic (congestive) heart failure; I42.8 Other cardiomyopathies; E66.9 Obesity, unspecified; E88.81 Metabolic syndrome and other insulin resistance; F14.90 Cocaine use, unspecified, uncomplicated; F17.200 Nicotine dependence, unspecified, uncomplicated; I25.10 Atherosclerotic heart disease of native coronary artery without angina pectoris; I44.7 Left bundle-branch block, unspecified; R09.02 Hypoxemia; Z79.82 Long term (current) use of aspirin; Z90.710 Acquired absence of both cervix and uterus; F32.9 Major depressive disorder, single episode, unspecified; G89.29 Other chronic pain; I34.0 Nonrheumatic mitral (valve) insufficiency; Z68.35 Body mass index [BMI] 35.0-35.9, adult
CPT/HCPCS: 36415; 71045; 80048; 80053; 80307; 81001; 83735; 83880; 84100; 84484; 85025; 93005; 93306; 94640; 96365; 96372; 96375; J1650; J1940; J2270; J3411; J7060; 99285-25; G0378; J7613; J7626

== ENCOUNTER → 2021-01-27 | Outpatient (CLI) | payer MEDICAID ==
[~2021-01-27] MED LIST changes: +ASPI-630 PO; +ATOR20TA PO; +CARV6.25 PO; -DULO60CA6 PO; +DULO60CA7 PO; +FURO40TA4 PO; +LISI10TA16 PO; +POTA20TA4 PO
--- NOTE | 2021-01-27 16:43 | CARD ---
MR#: [id number] Date of Study: 01/27/2021 Ordering Physician: ALEXSANDRA BURGESS, Referring Physician: ALEXSANDRA BURGESS, Tech: Tianna Cronin [facility] APPROVED REPORT EXAM: Two-dimensional and M-mode echocardiogram with Doppler and color Doppler. Other Information Quality : Average Rhythm : NSR INDICATION Cardiomyopathy RISK FACTORS Hypertension Obesity 2D DIMENSIONS RVDd2.5 (2.9-3.5cm)Left Atrium(2D)3.7 (1.6-4.0cm) IVSd1.0 (0.7-1.1cm)Aortic Root(2D)3.8 (2.0-3.7cm) LVDd5.5 (3.9-5.9cm)LVOT Diameter2.6 (1.8-2.4cm) PWd1.2 (0.7-1.1cm)LVDs4.3 (2.5-4.0cm) FS (%) 23.0 %SV68.3 ml LVEF(%)45.6 (>50%) Aortic Valve AoV Peak Philipp.86.2cm/sAoV VTI14.3cm AO Peak GR.3.0mmHgLVOT Peak Philipp.66.9cm/s AO Mean GR.2mmHgAVA (VMAX)4.10cm2 Pulmonary Valve PV Peak Ei[place]62.6cm/s LEFT VENTRICLE The Left Ventricle is mildly dilated. There is borderline concentric left ventricular hypertrophy. Th e left ventricular systolic function is severely impaired. Estimated ejection fraction 20-25%. There is global hypokinesis of the left ventricle. Abnormal septal motion probably from conduction abnorma lity. RIGHT VENTRICLE The right ventricle is normal size. There is normal right ventricular wall thickness. The right ventr icular systolic function is normal. ATRIA The left atrium size is normal. The right atrium size is normal. The interatrial septum is intact wit h no evidence for an atrial septal defect or patent foramen ovale as noted on 2-D or Doppler imaging. AORTIC VALVE The aortic valve is normal in structure and function. Doppler and Color Flow revealed no significant aortic regurgitation. There is no significant aortic valvular stenosis. MITRAL VALVE The mitral valve is normal in structure and function. There is no evidence of mitral valve prolapse. There is no mitral valve stenosis. Doppler and Color-flow revealed trace mitral regurgitation. TRICUSPID VALVE The tricuspid valve is normal in structure and function. Doppler and Color Flow revealed trace tricus pid valve regurgitation. There is no tricuspid valve stenosis. PULMONIC VALVE The pulmonary valve is normal in structure and function. Doppler and Color Flow revealed no pulmonic valvular regurgitation. GREAT VESSELS The aortic root is mildly enlarged. The ascending aorta is Mildly dilated. The IVC is normal in size and collapses >50% with inspiration. PERICARDIAL EFFUSION There is no evidence of significant pericardial effusion. Critical Notification Critical Value: No <Conclusion> The left ventricular systolic function is severely impaired. Estimated ejection fraction 20-25%. Trace mitral regurgitation. Trace tricuspid valve regurgitation. There is no evidence of significant pericardial effusion. Signed by : Sanjiv Samayoa, Electronically Approved : 01/27/2021 16:43:20
== END ==
LOC: ECHO 09:49
PROVIDERS: ATTEND Internal Medicine Cardiovascular Disease
DX: I51.7 Cardiomegaly (principal); I42.9 Cardiomyopathy, unspecified
CPT/HCPCS: 93306

== ENCOUNTER 2021-06-27 12:38 | Emergency (ER) | payer MEDICAID ==
[~2021-06-27] VITALS: Ht 172.7 cm; Wt 95.8 kg
--- NOTE | 2021-06-27 13:37 | PHYS DOC ---
Past Medical History Past Medical History: Depression Additional Past Medical Histor: CHRONIC BACK PAIN,CHRONIC NERVE PAIN Past Surgical History: Hysterectomy, Other Additional Past Surgical Histo: back surgery Smoking Status: Former Smoker Alcohol Use: None Drug Use: Cocaine General Adult EDM: Chief Complaint: SHORTNESS OF BREATH HPI: HPI: Patient is a 50 year old with a history of CHF and COPD presents with increased shortness of breath over the last day and a half. Patient states that she has not followed up formally with the artist model and currently does not take any medications. States that she has dyspnea on exertion. Denies any chest pain denies any lower extremity edema. Patient denies any chest pain denies any cough. Patient states that she still smokes cigarettes but cut down from a pack a day to 3 to 4 cigarettes a day. Review of Systems: Review of Systems: Constitutional: Denies fever or chills. Eyes: Denies change in visual acuity. HENT: Denies nasal congestion or sore throat. Respiratory: Shortness of breath no cough Cardiovascular: Denies chest pain or edema. GI: Denies abdominal pain, nausea, vomiting, bloody stools or diarrhea. : Denies dysuria. Musculoskeletal: Denies back pain or joint pain. Integument: Denies rash. Neurologic: Denies headache, focal weakness or sensory changes. Endocrine: Denies polyuria or polydipsia. Lymphatic: Denies swollen glands. Psychiatric: Denies depression or anxiety. Heart Score: C/O Chest Pain: No Risk Factors: Risk Factors: DM, Current or recent (<one month) smoker, HTN, HLP, family history of CAD, obesity. Risk Scores: Score 0 - 3: 2.5% MACE over next 6 weeks - Discharge Home Score 4 - 6: 20.3% MACE over next 6 weeks - Admit for Clinical Observation Score 7 - 10: 72.7% MACE over next 6 weeks - Early Invasive Strategies Allergies: Allergies: Allergies Coded Allergies Type Severity Reaction Last Updated Verified No Known Drug Allergies 08/17/13 No Physical Exam: PE: Breath sounds Constitutional: Well developed, well nourished, no acute distress, non-toxic appearance. HENT: Normocephalic, atraumatic, bilateral external ears normal, oropharynx mois t, no oral exudates, nose normal. Eyes: PERRLA, EOMI, conjunctiva normal, no discharge. Neck: Normal range of motion, no tenderness, supple, no stridor. Cardiovascular:Heart rate regular rhythm, no murmur Lungs & Thorax: Rhonchorous with bibasilar wheezing. Abdomen: Bowel sounds normal, soft, no tenderness, no masses, no pulsatile masses. Skin: Warm, dry, no erythema, no rash. Back: No tenderness, no CVA tenderness. Extremities: No tenderness, no cyanosis, no clubbing, ROM intact, no edema. Neurologic: Alert and oriented X 3, normal motor function, normal sensory function, no focal deficits noted. Psychologic: Affect normal, judgement normal, mood normal. EKG: EKG: Sinus rhythm heart rate of 62. Normal EKG Radiology/Procedures: Radiology/Procedures: [] Findings: The cardiomediastinal silhouette is normal. The pulmonary vasculature is normal. The lungs and pleural margins are clear. Impression: No evidence of an acute cardiopulmonary process. Course & Med Decision Making: Course & Med Decision Making Pertinent Labs and Imaging studies reviewed. (See chart for details) [] Patient was reevaluated states her shortness of breath is much improved. Patient given strict return precautions requested a albuterol inhaler prescription as well as referral to a artist model Finn Disclaimer: Finn Disclaimer: This electronic medical record was generated, in whole or in part, using a voice recognition dictation system. Departure Departure Referrals: NO PCP (PCP) MARCELLO DAVID DO Jun 27, 2021 13:37
[2021-06-27 13:38] LABS: BASO # 0.1 x10^3/uL (0.0-0.2); BASO % 1 % (0-3); EOS # 0.2 x10^3/uL (0.0-0.7); EOS % 3 % (0-3); HEMOGLOBIN 13.5 g/dL (12.0-15.5); LYMPH # 1.5 x10^3/uL (1.0-4.8); LYMPH % 24 % (24-48); MEAN CORPUSCULAR HEMOGLOBIN 31 pg (25-35); MEAN CORPUSCULAR HGB CONC 33 g/dL (31-37); MEAN CORPUSCULAR VOLUME 93 fL (79-100); MONO # 0.4 x10^3/uL (0.0-1.1); MONO % 7 % (0-9); NEUT # 3.9 x10^3/uL (1.8-7.7); NEUT % 65 % (31-73); PLATELET COUNT 247 x10^3/uL (140-400); RED CELL DISTRIBUTION WIDTH 12.9 % (11.5-14.5); WHITE BLOOD COUNT 6.1 x10^3/uL (4.0-11.0)
[2021-06-27] MEDS ORDERED: ALBUTEROL SULFATE 2.5 MG/3 ML NEBU. NEB ONE (13:45)
[2021-06-27] MEDS ORDERED: DEXAMETHASONE SOD PHOS 20 MG/5 ML VIAL. IV ONE (13:45)
[2021-06-27 13:48] LABS: CALCIUM 8.9 mg/dL (8.5-10.1); CREATININE 0.8 mg/dL (0.6-1.0); GFR 76.2; POTASSIUM 4.1 mmol/L (3.5-5.1)
[2021-06-27 14:02] LABS: ALBUMIN 3.3 g/dL (3.4-5.0); ALBUMIN/GLOBULIN RATIO 0.9 (1.0-1.7); TOTAL BILIRUBIN 0.3 mg/dL (0.2-1.0); TOTAL PROTEIN 6.9 g/dL (6.4-8.2)
--- NOTE | 2021-06-27 15:05 | RAD ---
XR CHEST 1V Clinical History: Reason: SOB, PT STATES CHEST PAIN. / Spl. Instructions: / History: Technique: AP view of the chest was obtained at 06/27/2021 1:51 PM. Comparison: October 07, 2020. Findings: The cardiomediastinal silhouette is normal. The pulmonary vasculature is normal. The lungs and pleura l margins are clear. Impression: No evidence of an acute cardiopulmonary process. Electronically signed by: Lalo Shipman III, MD (06/27/2021 3:03 PM) [facility]
[2021-06-27] MEDS ORDERED: ALBU2.5V8 IH (15:26)
[2021-06-27 15:33] VITALS: BP 152/72
--- NOTE | 2021-06-27 18:18 | EKG ---
[facility] [address] [place] [address] Test Date: 2021-06-27 Test Time: 12:57:20 Pat Name: VANESSA CAR Department: Room: Gender: F Nutrition Manager: : 1970 Requested By: MARCELLO DAVID Order Number: [id number] Reading MD: Sanjiv Samayoa Measurements Intervals [place] Rate: 65 P: DC: QRS: 23 QRSD: 80 T: 45 QT: 480 QTc: 500 Interpretive Statements SINUS RHYTHM T ABNORMALITY IN ANTEROLATERAL LEADS INFEROLATERAL LEADS PROLONGED QT ABNORMAL ECG Electronically Signed On 06-28-2021 9:03:48 CDT by Sanjiv Samayoa
== END 2021-06-27 15:45 | disposition home or self-care (01) ==
LOC: ER 12:38
DX: R06.02 Shortness of breath (principal); Z20.822 Contact with and (suspected) exposure to COVID-19; F17.210 Nicotine dependence, cigarettes, uncomplicated; J44.9 Chronic obstructive pulmonary disease, unspecified; G89.29 Other chronic pain; Z86.79 Personal history of other diseases of the circulatory system
CPT/HCPCS: 36415; 71045; 80053; 83880; 85025; 87426; 93005; 94640; 96374; 99285; J1100; J7613

== ENCOUNTER → 2021-08-02 | Outpatient (CLI) | payer MEDICAID ==
[~2021-08-02] MED LIST changes: +ALBU2.5V8 IH
--- NOTE | 2021-08-02 17:19 | CARD ---
MR#: [id number] Date of Study: 08/02/2021 Ordering Physician: ALEXSANDRA BURGESS, Referring Physician: ALEXSANDRA BURGESS, Tech: Lalo Parker [facility] APPROVED REPORT EXAM: Two-dimensional and M-mode echocardiogram with Doppler and color Doppler. Other Information Quality : AverageHR: 77bpm Rhythm : NSR INDICATION Cardiomyopathy RISK FACTORS Obesity 2D DIMENSIONS Left Atrium(2D)3.9 (1.6-4.0cm)IVSd1.1 (0.7-1.1cm) Aortic Root(2D)3.5 (2.0-3.7cm)LVDd4.8 (3.9-5.9cm) LVOT Diameter2.2 (1.8-2.4cm)PWd1.1 (0.7-1.1cm) LA Vmlyzl75 (18-58mL)LVDs3.0 (2.5-4.0cm) FS (%) 36.3 %SV69.5 ml LVEF(%)65.9 (>50%) Aortic Valve AoV Peak Philipp.105.1cm/sAoV VTI17.5cm AO Peak GR.4.4mmHgLVOT Peak Philipp.67.8cm/s LVOT VTI 11.72cmAO Mean GR.3mmHg MILAGROS (VMAX)1.68rn1BXK (VTI)2.49cm2 Mitral Valve MV E Hnelwcyp90.0cm/sMV DECEL VPUL474sn MV A Ixwwqdbh88.7cm/sMV DYE49tc E/A Ratio0.6MVA (PHT)2.29cm2 TDI E/Lateral E'7.3E/Medial E'10.2 Tricuspid Valve TR P. Rcbspvdg461qr/sTR Peak Gr.19mmHg Pulmonary Vein S1 Hcvpnvqy28.0cm/sD2 Bzivdlqo15.9cm/s LEFT VENTRICLE The left ventricle is normal size. There is normal left ventricular wall thickness. The systolic func tion is mildly impaired. The Ejection Fraction is 40-45%. There is global hypokinesis of the left julio tricle. Transmitral Doppler flow pattern is Grade I-abnormal relaxation pattern. No left ventricle th rombus noted on this study. There is no ventricular septal defect visualized. There is no left ventri cular aneurysm. There is no mass noted in the left ventricle. RIGHT VENTRICLE The right ventricle is normal size. There is normal right ventricular wall thickness. The right ventr icular systolic function is normal. ATRIA The left atrium size is normal. The right atrium size is normal. The interatrial septum is intact wit h no evidence for an atrial septal defect or patent foramen ovale as noted on 2-D or Doppler imaging. AORTIC VALVE The aortic valve is normal in structure and function. Doppler and Color Flow revealed no significant aortic regurgitation. There is no significant aortic valvular stenosis. There is no aortic valvular v egetation. MITRAL VALVE The mitral valve is normal in structure and function. There is no evidence of mitral valve prolapse. There is no mitral valve stenosis. Doppler and Color-flow revealed trace mitral regurgitation. TRICUSPID VALVE The tricuspid valve is normal in structure and function. Doppler and Color Flow revealed trace tricus pid regurgitation. The PA pressure was estimated at 25 mmHg. There is no tricuspid valve prolapse or vegetation. There is no tricuspid valve stenosis. PULMONIC VALVE Doppler and Color Flow revealed no pulmonic valvular regurgitation. There is no pulmonic valvular brit nosis. GREAT VESSELS The aortic root is normal in size. The ascending aorta is normal in size. The IVC is normal in size a nd collapses >50% with inspiration. PERICARDIAL EFFUSION There is no pleural effusion. There is no evidence of significant pericardial effusion. Critical Notification Critical Value: No <Conclusion> The systolic function is mildly impaired. The Ejection Fraction is 40-45%. There is global hypokinesis of the left ventricle. Signed by : Alexsandra Burgess, Electronically Approved : 08/02/2021 17:18:57
== END ==
LOC: ECHO 09:20
PROVIDERS: ATTEND Internal Medicine Cardiovascular Disease
DX: I51.9 Heart disease, unspecified (principal); I42.9 Cardiomyopathy, unspecified
CPT/HCPCS: 93306; C8929